=== PATIENT | female | born 1970 | race Caucasian/White ===

== ENCOUNTER → 2018-01-20 07:10 | Outpatient (CLI) | payer BC, SELFPAY ==
--- NOTE | 2018-01-20 07:15 | US_ITS ---
US abdomen limited History:Elevated liver enzymes, right upper quadrant pain with nausea and vomiting Ordering Physician:Librado Abarca MD Patient Age: 47 years Comparison:None Findings: Pancreas:Unremarkable. No obvious mass or abnormal fluid collection. No ductal dilatation Liver:No focal liver lesions demonstrated. Homogeneous echogenicity. No intrahepatic biliary ductal dilatation evident Right Kidney:Unremarkable. Normal size and echogenicity. No hydronephrosis Gallbladder:No gallstones, pericholecystic fluid, or biliary dilatation. Gallbladder wall is slightly thickened at 4 mm. This is nonspecific. Impression: Minimal gallbladder wall thickening otherwise negative right upper quadrant ultrasound.
== END ==
PROVIDERS: Family Provider Internal Medicine Adolescent Medicine; PCP Internal Medicine Adolescent Medicine; Visit Provider Internal Medicine Adolescent Medicine
DX: R10.11 Right upper quadrant pain (principal)
CPT/HCPCS: 76705

== ENCOUNTER → 2018-01-22 12:09 | Outpatient (CLI) | payer BC, SELFPAY ==
--- NOTE | 2018-01-22 12:15 | NM_ITS ---
NM hepatobiliary w pharm HISTORY: Elevated liver enzymes, right upper quadrant pain nausea and vomiting ITS.REASON: ABDOMINAL PAIN ORDERING PHYSICIAN: Librado Abarca MD PATIENT AGE: 47 years COMPARISON: 01/20/2018 DOSE: 8.45 mCi technetium Choletec with CCK FINDINGS: Homogeneous activity is present within the hepatic parenchyma. Activity is present in the gallbladder by 10 minutes. Activity is present in the small bowel by and minutes. The gallbladder ejection fraction is calculated to be 31% The patient reported pain and nausea with CCK infusion. IMPRESSION: 1. No evidence of common or cystic duct obstruction. 2. Slightly low gallbladder ejection fraction with pain and nausea reported with CCK infusion which may be seen with gallbladder dyskinesia. Please correlate with clinical findings.
== END ==
PROVIDERS: Family Provider Internal Medicine Adolescent Medicine; PCP Internal Medicine Adolescent Medicine; Visit Provider Internal Medicine Adolescent Medicine
DX: R10.11 Right upper quadrant pain (principal)
CPT/HCPCS: 78227; A9537; J2805

== ENCOUNTER → 2018-02-01 11:48 | Outpatient (CLI) | payer BC, SELFPAY ==
[2018-02-01 12:07] LABS: Basophils % 0.6 % (0.1-2.0); Eosinophils # 0.1 K/mm3 (0.0-0.4); Eosinophils % 1.4 % (0.1-12.0); Hematocrit 39.9 % (37.0-47.0); Hemoglobin 13.3 g/dL (12.2-16.2); Lymphocytes % 39.6 K/mm3 (10-50); Mean Corpuscular HGB Conc 33.4 g/dL (31.8-35.4); Mean Corpuscular Hemoglobin 28.8 pg (27.0-31.2); Mean Corpuscular Volume 86.4 fl (81-99); Mean Platelet Volume 6.4 fl (7.4-10.4); Monocytes # 0.3 K/mm3 (0.1-1.0); Monocytes % 6.4 % (1.7-9.3); Neutrophils # 2.6 K/mm3 (1.8-7.8); Platelet Count 377 K/mm3 (142-424); Red Blood Count 4.62 M/mm3 (4.20-5.40); Red Cell Distribution Width 13.1 % (11.5-17.5)
[2018-02-01 13:51] LABS: Alanine Aminotransferase 48 U/L (12-78); Albumin Level 4.2 gm/dL (3.4-5.0); Albumin/Globulin Ratio 1.2 (1.1-1.8); Alkaline Phosphatase 156 U/L (46-116); Anion Gap 13.1 mEq/L (5-15); Aspartate Amino Transferase 26 U/L (15-37); Bilirubin,Total 0.5 mg/dL (0.2-1.0); Blood Urea Nitrogen 12 mg/dL (7-18); Carbon Dioxide 32 mmol/L (21.0-32.0); Chloride 102 mmol/L (98-107); Estimated Glomerular Filt Rate 59 ml/min (>60); GFR (African American) 72 ML/MIN (>60); Globulin 3.5 gm/dl (1.3-3.2); Glucose 95 mg/dL (74-106); Potassium 4.1 mmoL/L (3.5-5.1); Sodium 143 mmol/L (136-145); Total Protein,Serum 7.7 gm/dL (6.4-8.2)
== END ==
PROVIDERS: Visit Provider Surgery
DX: K82.9 Disease of gallbladder, unspecified (principal); Z01.818 Encounter for other preprocedural examination
CPT/HCPCS: 36415; 80053; 85025

== ENCOUNTER → 2018-05-21 11:08 | Outpatient (CLI) | payer BC, SELFPAY ==
[2018-05-21 12:21] LABS: Basophils % 0.1 % (0.1-2.0); Eosinophils # 0.1 K/mm3 (0.0-0.4); Eosinophils % 0.9 % (0.1-12.0); Hematocrit 42.9 % (37.0-47.0); Hemoglobin 14.7 g/dL (12.2-16.2); Lymphocytes # 2.2 K/mm3 (0.7-4.5); Lymphocytes % 31.5 % (10-50); Mean Corpuscular HGB Conc 34.2 g/dL (31.8-35.4); Mean Corpuscular Hemoglobin 29.3 pg (27.0-31.2); Mean Corpuscular Volume 85.5 fl (81-99); Mean Platelet Volume 6.1 fl (7.4-10.4); Monocytes # 0.3 K/mm3 (0.1-1.0); Monocytes % 4.1 % (1.7-9.3); Neutrophils # 4.5 K/mm3 (1.8-7.8); Neutrophils % 63.4 % (37.0-80.0); Platelet Count 301 K/mm3 (142-424); Red Blood Count 5.02 M/mm3 (4.20-5.40); Red Cell Distribution Width 14.2 % (11.5-17.5); White Blood Count 7.1 K/mm3 (4.8-10.8)
[2018-05-22 08:28] LABS: HIV Screen 4th Generation wRfx Non Reactive (Non Reactive); Immunoglobulin A, Qn 78 mg/dL (87-352)
[2018-05-22 12:16] LABS: Immunoglobulin G, Qn 866 mg/dL (700-1600); Immunoglobulin M, Qn 41 mg/dL (26-217)
[2018-05-25 06:09] LABS: Immunoglobulin E, Total 64 IU/mL (0-100)
== END ==
PROVIDERS: Visit Provider Internal Medicine Adolescent Medicine
DX: B37.0 Candidal stomatitis (principal)
CPT/HCPCS: 36415; 82784; 82785; 85025; 86703; G0432

== ENCOUNTER → 2018-05-26 08:06 | Outpatient (CLI) | payer BC, SELFPAY ==
[2018-05-26 13:36] LABS: Alanine Aminotransferase 28 U/L (12-78); Albumin Level 3.7 gm/dL (3.4-5.0); Albumin/Globulin Ratio 1.3 (1.1-1.8); Alkaline Phosphatase 52 U/L (46-116); Anion Gap -13.6 mEq/L (5-15); Aspartate Amino Transferase 12 U/L (15-37); Bilirubin,Total 0.2 mg/dL (0.2-1.0); Blood Urea Nitrogen 14 mg/dL (7-18); Calcium 9.2 mg/dL (8.5-10.1); Carbon Dioxide 33 mmol/L (21.0-32.0); Chloride 115 mmol/L (98-107); Creatinine,Serum 0.74 mg/dL (0.55-1.02); Estimated Glomerular Filt Rate 83 ml/min (>60); Free Thyroxine Index 1.9 ug/dL (5.93-13.13); GFR (African American) 101 ML/MIN (>60); Globulin 2.8 gm/dl (1.3-3.2); Glucose 92 mg/dL (74-106); Potassium 3.4 mmoL/L (3.5-5.1); Sodium 131 mmol/L (136-145); T4 (Thyroxine) 5.5 ug/dl (4.7-13.3); Thyroid Stimulating Hormone 1.84 uIU/ml (0.358-3.740); Total Protein,Serum 6.5 gm/dL (6.4-8.2); Triiodothryronine (T3) Uptake 35 % (31-39)
== END ==
PROVIDERS: PCP Internal Medicine Adolescent Medicine; Visit Provider Internal Medicine Adolescent Medicine
DX: E87.6 Hypokalemia (principal)
CPT/HCPCS: 36415; 80053; 83735; 84436; 84443; 84479

== ENCOUNTER → 2019-02-10 13:42 | Outpatient (CLI) | payer BC, SELFPAY ==
--- NOTE | 2019-02-10 13:53 | CI_ITS ---
Cerebrovascular Exam Indications: 780.4 Dizziness and giddiness. IMPRESSIONS 1. The bilateral vertebral arteries are patent with normal antegrade flow. 2. Study suggests 20-49% stenosis involving the right internal carotid artery and the left internal carotid artery. Carotid duplex study. Complete study and Doppler flow study including spectral analysis, color and bose scale imaging. Height: Height: 152.4cm. Height: 60in. Weight: Weight: 63.5kg. Weight: 139.7lb. Body mass index: BMI: 27.3kg/m^2. Body surface area: BSA: 1.66m^2. Location: Vascular laboratory. Patient status: Outpatient. Tables: Arterial flow: + +--------+--------+ Location V sys V ed + +--------+--------+ Right CCA - proximal 141cm/s 37.3cm/s + +--------+--------+ Right CCA - distal 142cm/s 47.1cm/s + +--------+--------+ Right ECA 131cm/s -------- + +--------+--------+ Right ICA - proximal 136cm/s 54.1cm/s + +--------+--------+ Right ICA - mid 138cm/s 59.4cm/s + +--------+--------+ Right ICA - distal 126cm/s 50.6cm/s + +--------+--------+ Right vertebral 72.5cm/s -------- + +--------+--------+ Left CCA - proximal 148cm/s 37.5cm/s + +--------+--------+ Left CCA - distal 134cm/s 44.5cm/s + +--------+--------+ Left ECA 138cm/s -------- + +--------+--------+ Left ICA - proximal 108cm/s 44cm/s + +--------+--------+ Left ICA - mid 117cm/s 44.8cm/s + +--------+--------+ Left ICA - distal 126cm/s 50.3cm/s + +--------+--------+ Left vertebral 54.2cm/s -------- + +--------+--------+ Velocity ratios: + + + + + + Right, V sys Right, V ed Left, V sys Left, V ed + + + + + + Max ICA/dist CCA 0.97 1.26 0.94 1.13 + + + + + + (Report amended ) Electronically signed by: Akbar Mo [id number]
== END ==
PROVIDERS: PCP Internal Medicine Adolescent Medicine; Visit Provider Nurse Practitioner Family
DX: G45.9 Transient cerebral ischemic attack, unspecified (principal)
CPT/HCPCS: 93880

== ENCOUNTER → 2019-02-11 11:05 | Outpatient (CLI) | payer BC, SELFPAY ==
[2019-02-11 12:29] LABS: Basophils % 0.3 % (0.1-2.0); Eosinophils # 0.1 K/mm3 (0.0-0.4); Eosinophils % 1.2 % (0.1-12.0); Hemoglobin 16.1 g/dL (12.2-16.2); Lymphocytes # 2.3 K/mm3 (0.7-4.5); Lymphocytes % 27.8 % (10-50); Mean Corpuscular HGB Conc 37.4 g/dL (31.8-35.4); Mean Corpuscular Volume 85.4 fl (81-99); Mean Platelet Volume 6.7 fl (7.4-10.4); Monocytes # 0.4 K/mm3 (0.1-1.0); Monocytes % 5.1 % (1.7-9.3); Neutrophils # 5.4 K/mm3 (1.8-7.8); Neutrophils % 65.6 % (37.0-80.0); Platelet Count 383 K/mm3 (142-424); Red Blood Count 5.04 M/mm3 (4.20-5.40); Red Cell Distribution Width 13.2 % (11.5-17.5); White Blood Count 8.2 K/mm3 (4.8-10.8)
[2019-02-11 15:59] LABS: Alanine Aminotransferase 38 U/L (12-78); Albumin Level 4.3 gm/dL (3.4-5.0); Albumin/Globulin Ratio 1.3 (1.1-1.8); Alkaline Phosphatase 62 U/L (46-116); Anion Gap 13.5 mEq/L (5-15); Aspartate Amino Transferase 19 U/L (15-37); Bilirubin,Total 0.5 mg/dL (0.2-1.0); Blood Urea Nitrogen 19 mg/dL (7-18); Calcium 9.8 mg/dL (8.5-10.1); Carbon Dioxide 32 mmol/L (21.0-32.0); Chloride 97 mmol/L (98-107); Chol/HDL Ratio 4.2 (1-3.5); Cholesterol 245 mg/dL (140-200); Creatinine,Serum 0.95 mg/dL (0.55-1.02); Estimated Glomerular Filt Rate 63 ml/min (>60); GFR (African American) 76 ML/MIN (>60); Globulin 3.2 gm/dl (1.3-3.2); Glucose 93 mg/dL (74-106); HDL Cholesterol 59 mg/dL (29-89); LDL Cholesterol 151 mg/dL (0-130); Potassium 3.5 mmoL/L (3.5-5.1); Sodium 139 mmol/L (136-145); Thyroid Stimulating Hormone 2.31 uIU/ml (0.358-3.740); Total Protein,Serum 7.5 gm/dL (6.4-8.2); Triglycerides 175 mg/dL (30-200); VLDL Cholesterol 35 mg/dL (0-40)
[2019-02-12 18:48] LABS: Vitamin B12 332 pg/mL (232-1245); Vitamin D 25 Hydroxy 12.5 ng/mL (30.0-100.0)
== END ==
PROVIDERS: Visit Provider Nurse Practitioner Family
DX: Z00.00 Encounter for general adult medical examination without abnormal findings (principal); R53.83 Other fatigue; G45.9 Transient cerebral ischemic attack, unspecified; E55.9 Vitamin D deficiency, unspecified
CPT/HCPCS: 36415; 80053; 80061; 82607; 82652; 84443; 85025

== ENCOUNTER → 2019-02-28 14:25 | Outpatient (CLI) | payer BC, SELFPAY ==
--- NOTE | 2019-02-28 14:30 | MR_ITS ---
PROCEDURE: MR HEAD/BRAIN WO/W CON CLINICAL INDICATION: TIA Dizziness, off balance, fatigue COMPARISON: HDWO CT HEAD W/O CONTRAST from 06/14/2016 TECHNIQUE: Multiplanar multi echo sequences are performed without and with gadolinium enhancement FINDINGS: No midline shift, mass effect, intracranial hemorrhage, or hydrocephalus is evident. The cerebellopontine angles, cerebellum, and brainstem are unremarkable. There is normal bose-white matter differentiation. There are scant T2 white matter hyperintensities which are nonspecific in the left frontal and parietal region in the subcortical area and in the deep white matter of the left frontal lobe. The hippocampal gyri are unremarkable and the temporal horns are symmetric. No enhancing lesions are evident. The pituitary, optic chiasm, corpus callosum, and craniocervical junction are unremarkable. No mastoid effusion or sinus air-fluid level. IMPRESSION: No acute intracranial findings. There are a few scattered T2 white matter hyperintensities which are nonspecific and could be related to small ischemic gliotic foci or sequela from migraine headache. Demyelinating process felt to be less likely based on imaging characteristics but not entirely excluded Dictated by: Akbar Mo MD 03/01/2019 09:20 Signed by: <Electronically signed by Akbar Mo MD in [place]> 03/01/2019 09:20
== END ==
PROVIDERS: PCP Internal Medicine Adolescent Medicine; Visit Provider Nurse Practitioner Family
DX: G45.9 Transient cerebral ischemic attack, unspecified (principal)
CPT/HCPCS: 70553; A9576

== ENCOUNTER → 2020-01-09 15:08 | Outpatient (CLI) | payer BC, SELFPAY ==
--- NOTE | 2020-01-09 15:26 | XR_ITS ---
PROCEDURE: XR FOOT WT BEARING RT 3V CLINICAL INDICATION: bunion Pain COMPARISON: XR FOOT WT BEARING LT 3V from 01/09/2020 FINDINGS: No acute fracture or dislocation. There is mild hallux valgus with osteoarthritic change of the 1st MTP joint and bunion formation. There is some soft tissue ossification medial to the head of the 4th metatarsal with some cortical erosion of the distal aspect of the 4th metatarsal with cystic changes raising the suspicion gout. There is short 4th metatarsal/brachymetatarsia. IMPRESSION: 1. 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 Hallux valgus 3. Soft tissue swelling with some questionable soft tissue ossification and cystic/lytic changes of the medial aspect and distal aspect of the 1st metatarsal raising the suspicion of gout. Please correlate with clinical parameters. There is a cystic/lytic lesion of the distal and medial aspect of the 4th metatarsal measuring approximately 15 mm Dictated by: Akbar Mo MD 01/09/2020 15:54 Electronically signed by Akbar Mo MD in [place] 01/09/2020 15:54
--- NOTE | 2020-01-09 15:26 | XR_ITS ---
PROCEDURE: XR FOOT WT BEARING LT 3V CLINICAL INDICATION: bunion Congenital deformity COMPARISON: No exams were available for comparison FINDINGS: Minimal hallux valgus. Soft tissue swelling is present at the medial aspect of the 1st MTP joint with lucency of the distal aspect of the 1st metatarsal medially with cystic changes. There is short 4th metatarsal/brachy meta tarsi Other findings:None. IMPRESSION: Short 4th metatarsal Cystic changes of the distal aspect of the 1st metatarsal medially with overlying soft tissue swelling. Gout is a consideration. Dictated by: Akbar Mo MD 01/09/2020 18:37 Electronically signed by Akbar Mo MD in [place] 01/09/2020 18:37
== END ==
PROVIDERS: PCP Internal Medicine Adolescent Medicine; Visit Provider Podiatrist
DX: M20.10 Hallux valgus (acquired), unspecified foot (principal)
CPT/HCPCS: 73630

== ENCOUNTER → 2020-01-17 14:48 | Outpatient (CLI) | payer BC, SELFPAY ==
[2020-01-17 15:15] LABS: Basophils % 0.4 % (0.1-2.0); Eosinophils # 0.2 K/mm3 (0.0-0.4); Eosinophils % 2.9 % (0.1-12.0); Hematocrit 39.9 % (37.0-47.0); Hemoglobin 14.6 g/dL (12.2-16.2); Lymphocytes # 2.8 K/mm3 (0.7-4.5); Lymphocytes % 33.8 % (10-50); Mean Corpuscular HGB Conc 36.5 g/dL (31.8-35.4); Mean Corpuscular Hemoglobin 31.1 pg (27.0-31.2); Mean Corpuscular Volume 85.1 fl (81-99); Monocytes # 0.4 K/mm3 (0.1-1.0); Monocytes % 5.2 % (1.7-9.3); Neutrophils # 4.8 K/mm3 (1.8-7.8); Neutrophils % 57.7 % (37.0-80.0); Platelet Count 419 K/mm3 (142-424); Red Cell Distribution Width 13.1 % (11.5-17.5); White Blood Count 8.4 K/mm3 (4.8-10.8)
[2020-01-17 15:40] LABS: Erythrocyte Sedimentation Rate 15 mm/hr (0-20)
[2020-01-17 16:02] LABS: Chloride 95 mmol/L (98-107); Sodium 138 mmol/L (136-145)
[2020-01-17 16:05] LABS: Alanine Aminotransferase 25 U/L (12-78); Albumin Level 4.6 g/dl (3.5-5.0); Albumin/Globulin Ratio 1.9 (1.1-1.8); Alkaline Phosphatase 75 U/L (38-126); Aspartate Amino Transferase 25 U/L (14-36); Bilirubin,Total 0.4 mg/dl (0.2-1.3); Blood Urea Nitrogen 28 mg/dl (7-17); Carbon Dioxide 31 mmol/L (22.0-30.0); Estimated Glomerular Filt Rate 66 ml/min (>60); GFR (African American) 80 ML/MIN (>60); Globulin 2.4 g/dL (1.3-3.2); Uric Acid 7.1 mg/dl (2.5-6.2)
[2020-01-17 16:06] LABS: Calcium 9.9 mg/dl (8.4-10.2); Glucose 81 mg/dl (74-100)
[2020-01-17 16:11] LABS: C-Reactive Protein 4.4 mg/L (0-4)
[2020-01-17 17:10] LABS: Hemoglobin A1C 5.7 % (4.0-6.0)
[2020-01-19 11:16] LABS: Vitamin B12 474 pg/mL (232-1245)
[2020-01-19 12:02] LABS: Folate 6.6 ng/mL (>3.0)
[2020-01-19 13:07] LABS: RA Latex Turbid. 11.9 IU/mL (0.0-13.9)
[2020-01-19 15:17] LABS: Anti-Centromere B Antibodies <0.2 AI (0.0-0.9); Anti-Jo-1 <0.2 AI (0.0-0.9); Anti-Smith Antibody <0.2 AI (0.0-0.9); Antichromatin Antibodies <0.2 AI (0.0-0.9); Antiscleroderma-70 Antibodies <0.2 AI (0.0-0.9); RNP Antibodies 0.3 AI (0.0-0.9); Sjogren's Anti-SS-A <0.2 AI (0.0-0.9); Sjogren's Anti-SS-B <0.2 AI (0.0-0.9)
[2020-01-19 16:16] LABS: Anti-DNA (DS) Ab Qn <1 IU/mL (0-9)
[2020-01-19 18:14] LABS: Antinuclear Antibodies, IFA Negative (.)
[2020-01-24 20:30] LABS: 1,25 Dihydroxy Vitamin D 15 pg/mL (.); 1,25-Dihydroxy, Vitamin D-2 11 pg/mL (.); 1,25-Dihydroxy, Vitamin D-3 <10 pg/mL (.)
== END ==
PROVIDERS: Visit Provider Podiatrist
DX: M25.50 Pain in unspecified joint (principal); M1A.0720 Idiopathic chronic gout, left ankle and foot, without tophus (tophi); M19.072 Primary osteoarthritis, left ankle and foot; M19.071 Primary osteoarthritis, right ankle and foot
CPT/HCPCS: 36415; 80053; 82607; 82652; 82746; 83036; 84550; 85025; 85651; 86038; 86140; 86225; 86235; 86431

== ENCOUNTER → 2020-05-24 12:23 | Outpatient (CLI) | payer SELFPAY ==
--- NOTE | 2020-05-24 12:30 | XR_ITS ---
PROCEDURE: XR FOOT WT BEARING RT 3V CLINICAL INDICATION: Gout of Right Great Toe. COMPARISON: CR XR FOOT WT BEARING RT 3V from 01/09/2020 CR XR FOOT WT BEARING LT 3V from 01/09/2020 FINDINGS: There is prominent soft tissue swelling at the medial and distal aspect of the 1st metatarsal with some faint soft tissue calcification consistent with gouty tophus. A lytic lesion involves the distal aspect of the 1st metatarsal measuring 19 by 11 mm and may be related to erosive change from gout.. 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
[2020-05-24 14:22] LABS: Basophils % 0.3 % (0.1-2.0); Eosinophils # 0.2 K/mm3 (0.0-0.4); Hematocrit 41.1 % (37.0-47.0); Hemoglobin 14.5 g/dL (12.2-16.2); Lymphocytes # 2.8 K/mm3 (0.7-4.5); Lymphocytes % 33.7 % (10-50); Mean Corpuscular HGB Conc 35.1 g/dL (31.8-35.4); Mean Corpuscular Hemoglobin 29.8 pg (27.0-31.2); Mean Corpuscular Volume 84.7 fl (81-99); Mean Platelet Volume 6.8 fl (7.4-10.4); Monocytes # 0.5 K/mm3 (0.1-1.0); Monocytes % 5.7 % (1.7-9.3); Neutrophils # 4.8 K/mm3 (1.8-7.8); Neutrophils % 58.3 % (37.0-80.0); Platelet Count 349 K/mm3 (142-424); Red Blood Count 4.85 M/mm3 (4.20-5.40); Red Cell Distribution Width 13.4 % (11.5-17.5); White Blood Count 8.3 K/mm3 (4.8-10.8)
[2020-05-24 15:01] LABS: Erythrocyte Sedimentation Rate 33 mm/hr (0-30)
[2020-05-24 15:42] LABS: Chloride 93 mmol/L (98-107); Potassium 4.1 mmoL/L (3.5-5.1); Sodium 139 mmol/L (136-145)
[2020-05-24 15:44] LABS: Alanine Aminotransferase 39 U/L (12-78); Aspartate Amino Transferase 29 U/L (14-36); Blood Urea Nitrogen 19 mg/dl (7-17); Estimated Glomerular Filt Rate 66 ml/min (>60); GFR (African American) 80 ML/MIN (>60)
[2020-05-24 15:45] LABS: Albumin Level 4.6 g/dl (3.5-5.0); Albumin/Globulin Ratio 1.8 (1.1-1.8); Alkaline Phosphatase 58 U/L (38-126); Anion Gap 16.1 mEq/L (5-15); Bilirubin,Total 0.3 mg/dl (0.2-1.3); Carbon Dioxide 34 mmol/L (22.0-30.0); Globulin 2.6 g/dL (1.3-3.2); Glucose 106 mg/dl (74-100); Total Protein,Serum 7.2 g/dl (6.3-8.2)
[2020-05-24 15:52] LABS: C-Reactive Protein 17.8 mg/L (0-4)
[2020-05-24 16:35] LABS: Uric Acid 8.7 mg/dl (2.5-6.2)
== END ==
PROVIDERS: PCP Internal Medicine Adolescent Medicine; Visit Provider Podiatrist
DX: M10.9 Gout, unspecified (principal)
CPT/HCPCS: 36415; 73630; 80053; 84550; 85025; 85651; 86140

== ENCOUNTER → 2020-09-07 16:49 | Outpatient (CLI) | payer BC, SELFPAY ==
--- NOTE | 2020-09-07 16:57 | XR_ITS ---
PROCEDURE: XR CHEST 2V CLINICAL HISTORY: SOB COMPARISON: No exams were available for comparison FINDINGS: The cardiomediastinal silhouette and pulmonary vascularity are within normal limits. The lungs are clear without infiltrates, suspicious nodules, or pleural effusions. No acute bony abnormalities. IMPRESSION: No acute findings. Dictated by: Akbar Mo MD 09/07/2020 17:55 Akbar Mo MD in [place] 09/07/2020 17:55
== END ==
PROVIDERS: PCP Internal Medicine Adolescent Medicine; Visit Provider Nurse Practitioner Family
DX: R06.02 Shortness of breath (principal)
CPT/HCPCS: 71046

== ENCOUNTER → 2021-03-25 16:17 | Outpatient (CLI) | payer BC, SELFPAY | PROVIDERS: PCP Internal Medicine Adolescent Medicine; Visit Provider Nurse Practitioner | DX: U07.1 COVID-19 (principal) | CPT/HCPCS: C9803; U0003; U0005 ==

== ENCOUNTER 2023-11-23 16:25 | Outpatient (CLI) | payer BC, SELFPAY ==
--- NOTE | 2023-11-23 16:51 | XR_ITS ---
PROCEDURE INFORMATION: Exam: XR Right Foot Complete; Alignment Exam date and time: 11/23/2023 4:52 PM Age: 53 years old Clinical indication: Other: Gout TECHNIQUE: Imaging protocol: Radiologic exam of the right foot. Views: 3 or more views. COMPARISON: CR XR FOOT WT BEARING RT 3V 05/24/2020 12:34 PM FINDINGS: Bones/joints: There are erosive changes of the 1st metatarsal head which have significantly progressed from the examination dated May 24, 2020 an appearance suggestive of gouty arthropathy. There is a hallux valgus deformity. Soft tissues: Normal. IMPRESSION: There are erosive changes of the 1st metatarsal head which have significantly progressed from the examination dated May 24, 2020 an appearance suggestive of gouty arthropathy.
[2023-11-23 18:19] LABS: Alanine Aminotransferase 30 U/L (12-78); Albumin Level 4.7 g/dl (3.5-5.0); Albumin/Globulin Ratio 1.8 (1.1-1.8); Alkaline Phosphatase 79 U/L (38-126); Aspartate Amino Transferase 34 U/L (14-36); Bilirubin,Total 0.4 mg/dl (0.2-1.3); Blood Urea Nitrogen 17 mg/dl (7-17); Calcium 10.3 mg/dl (8.4-10.2); Carbon Dioxide 29 mmol/L (22.0-30.0); Chloride 101 mmol/L (98-107); Estimated Glomerular Filt Rate 65 ml/min (>60); GFR (African American) 79 ML/MIN (>60); Globulin 2.6 g/dL (1.3-3.2); Glucose 88 mg/dl (74-100); Sodium 142 mmol/L (136-145); Total Protein,Serum 7.3 g/dl (6.3-8.2); Uric Acid 6.9 mg/dl (2.5-6.2)
[2023-11-23 18:25] LABS: C-Reactive Protein 10.3 mg/L (0-4)
[2023-11-23 19:29] LABS: Erythrocyte Sedimentation Rate 14 mm/hr (0-30)
[2023-11-23 19:32] LABS: Basophils # 0.1 K/mm3 (0-0.2); Basophils % 0.5 % (0.1-2.0); Eosinophils # 0.2 K/mm3 (0.0-0.4); Eosinophils % 2.1 % (0.1-12.0); Hematocrit 39.7 % (37.0-47.0); Hemoglobin 13.5 g/dL (12.2-16.2); Lymphocytes % 30.3 % (10-50); Mean Corpuscular HGB Conc 34.1 g/dL (31.8-35.4); Mean Corpuscular Volume 85.1 fl (81-99); Mean Platelet Volume 8.2 fl (7.4-10.4); Monocytes # 0.4 K/mm3 (0.1-1.0); Monocytes % 4.3 % (1.7-9.3); Neutrophils # 6.2 K/mm3 (1.8-7.8); Neutrophils % 62.8 % (37.0-80.0); Platelet Count 409 K/mm3 (142-424); Red Blood Count 4.66 M/mm3 (4.20-5.40); Red Cell Distribution Width 13.3 % (11.5-17.5); White Blood Count 9.9 K/mm3 (4.8-10.8)
== END 2023-11-23 23:59 | disposition home or self-care (01) ==
LOC: LAB 16:26
PROVIDERS: PCP Internal Medicine Adolescent Medicine; Visit Provider Nurse Practitioner
DX: M1A.0710 Idiopathic chronic gout, right ankle and foot, without tophus (tophi) (principal)
CPT/HCPCS: 36415; 73630; 80053; 84550; 85025; 85651; 86140

== ENCOUNTER 2024-01-05 13:57 | Outpatient (CLI) | payer BC, SELFPAY ==
--- NOTE | 2024-01-05 13:58 | ECG_ITS ---
APPROVED REPORT Exam: Resting ECG HR:90 bpm ECG Measurements Heart Rate 90 AXES VA 161 P 59 QRSd 83 QRS 36 QT 338 T 81 QTc 386 Conclusion SINUS RHYTHM NONSPECIFIC T-WAVE ABNORMALITY BORDERLINE ECG Electronically signed by : MARRY JARAMILLO, 01/06/2024 21:42:16
--- NOTE | 2024-01-05 14:20 | XR_ITS ---
FINAL REPORT CLINICAL HISTORY: pre-op testing...soa FINDINGS: No acute pulmonary density is evident. There is no evidence of effusion or other pleural disease. The mediastinum has a normal appearance. The cardiac silhouette is unremarkable. IMPRESSION: Unremarkable chest exam. Reviewed, Interpreted and Dictated by Cristina Egan MD Transcribed by Marianne Cole Authenticated and [facility]
[2024-01-05 14:44] LABS: Chloride 98 mmol/L (98-107)
[2024-01-05 14:45] LABS: Potassium 4.1 mmoL/L (3.5-5.1); Sodium 140 mmol/L (136-145)
[2024-01-05 14:47] LABS: Alanine Aminotransferase 38 U/L (12-78); Aspartate Amino Transferase 32 U/L (14-36); Blood Urea Nitrogen 22 mg/dl (7-17); Estimated Glomerular Filt Rate 65 ml/min (>60); GFR (African American) 79 ML/MIN (>60)
[2024-01-05 14:48] LABS: Albumin/Globulin Ratio 1.9 (1.1-1.8); Alkaline Phosphatase 71 U/L (38-126); Anion Gap 14.1 mEq/L (5-15); Bilirubin,Total 0.7 mg/dl (0.2-1.3); Calcium 10.5 mg/dl (8.4-10.2); Carbon Dioxide 32 mmol/L (22.0-30.0); Globulin 2.6 g/dL (1.3-3.2); Glucose 137 mg/dl (74-100); Total Protein,Serum 7.6 g/dl (6.3-8.2)
[2024-01-05 14:54] LABS: C-Reactive Protein 3.4 mg/L (0-4)
[2024-01-05 15:09] LABS: Basophils % 0.6 % (0.1-2.0); Eosinophils # 0.1 K/mm3 (0.0-0.4); Eosinophils % 1.3 % (0.1-12.0); Hematocrit 41.5 % (37.0-47.0); Hemoglobin 13.9 g/dL (12.2-16.2); Lymphocytes % 26.2 % (10-50); Mean Corpuscular HGB Conc 33.4 g/dL (31.8-35.4); Mean Corpuscular Hemoglobin 28.9 pg (27.0-31.2); Mean Corpuscular Volume 86.6 fl (81-99); Mean Platelet Volume 7.6 fl (7.4-10.4); Monocytes # 0.4 K/mm3 (0.1-1.0); Monocytes % 5.4 % (1.7-9.3); Neutrophils % 66.6 % (37.0-80.0); Platelet Count 355 K/mm3 (142-424); Red Cell Distribution Width 13.8 % (11.5-17.5); White Blood Count 7.5 K/mm3 (4.8-10.8)
[2024-01-05 15:34] LABS: Uric Acid 6.8 mg/dl (2.5-6.2)
[2024-01-15 16:30] LABS: 1,25 Dihydroxy Vitamin D 35 pg/mL (.); 1,25-Dihydroxy, Vitamin D-2 22 pg/mL (.); 1,25-Dihydroxy, Vitamin D-3 13 pg/mL (.)
== END 2024-01-05 23:59 | disposition home or self-care (01) ==
LOC: LAB 13:58
PROVIDERS: PCP Internal Medicine Adolescent Medicine; Visit Provider Podiatrist
DX: Z01.818 Encounter for other preprocedural examination (principal); M1A.0710 Idiopathic chronic gout, right ankle and foot, without tophus (tophi); Z68.27 Body mass index [BMI] 27.0-27.9, adult
CPT/HCPCS: 36415; 71046; 80053; 82652; 84550; 85025; 86140; 93005

== ENCOUNTER 2024-01-07 12:04 | Day surgery (SDC) | payer BC, SELFPAY ==
[2024-01-06 13:24] VITALS: BMI 27.3
[2024-01-07] VITALS (11 sets, daily range): BP systolic 101–147; BP diastolic 57–91; PULSE 80–108; RESP 14–18; TEMP 36.6–43; O2SAT 93–97
--- NOTE | 2024-01-07 13:45 | P.PNANES_ITS ---
[facility] Disclaimer: The information contained in this section may have been updated after the patient was seen, as this information can be updated by other users. 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, bilateral Gout Surgical History Hx of colonoscopy Hx of section Hx of cholecystectomy H/O: hysterectomy total Family History Father Diabetes Type 1 Heart attack Gout Heart disease Had pacemaker, CHF Mother Gout Thyroid disorder Social History Smoking Status: Never smoker alcohol intake: never counseling provided: none substance use type: denies use current occupational status: employed Travel in the last 8 weeks: None [facility] Anesthesia Checklist Patient Identification Patient Identification: Arm Band, Family and Verbal (Name & ) Structural Data Admitted From: Home Planned Operative Procedure/s: RT. foot cheilectomy; I D; nerve decompression Consent for Planned Operative Procedure(s) Verified: Yes Verified Documents: Surgical Consent and History and Physical NPO Status Verified Time NPO: 23:50 Chart Verification Results Verified: CBC, BMP, ECG and Chest Xray Additional verifications Patient : No Anesthesia Reactions: No Hx Blood Transfusions: No Blood Transfusion Reaction: No Cardiovascular Assessment Heart Sounds: S1 & S2 Pulse Rhythm: Irregular Peripheral Edema: No Airway Assessment Mallampati Score:: Class II C-Spine Mobility Assessed: Yes (FROM) TMJ Mobility Assessed: Yes Dentition: Good Dentition (Nothing loose per pt.) Neurological Assessment Level of Consciousness: Awake, Alert, Appropriate and Follows Commands Hx Seizures: No Numbness or tingling in extremities: No Anesthesia Plan Anesthesia Risk discussed: Yes Anesthesia Plan: Verified ASA Class: III Anesthesia Type: General w/block
[2024-01-07] MEDS: BUPIVACAINE 0.5% 30ML VIAL 150 MG (15:48)
[2024-01-07] MEDS: CEFAZOLIN 2GM VIAL 2 GM (15:49)
[2024-01-07] MEDS: CEFAZOLIN SODIUM 2 GM in 0.9 % SODIUM CHLORIDE 100 ML IV (15:49)
--- NOTE | 2024-01-07 16:15 | XR_ITS ---
PROCEDURE INFORMATION: Exam: XR Right Foot Exam date and time: 01/07/2024 4:53 PM Age: 53 years old Clinical indication: Screening exam; Post op exam; Prior surgery; Surgery date: Post-operative (0-2 days); Surgery type: Post cheilectomy, gout TECHNIQUE: Imaging protocol: Radiologic exam of the right foot. Views: 3 or more views. 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 Interval partial resection of the 1st metatarsal head. No acute fracture or dislocation. Soft tissues: Normal. IMPRESSION: Postsurgical changes without acute abnormality identified.
--- NOTE | 2024-01-07 16:44 | EXP.ANES.I ---
[facility] Anesthesia Record Part I Anesthesia Record I Intake, IV Amount: 1,500 Hydration: Adequate Estimated blood loss (mL): 0 Urine output (mL): 0 Blood Pressure: 144/91 SaO2: 93 Pulse Rate: 108 Airway Patency: Patent Respiratory Rate: 16 Temperature: 97.8 F Patient is:: Awake and Stable Stable to PACU at:: 16:40
--- NOTE | 2024-01-07 16:53 | EXP.OP.NOTE ---
Date of procedure: 01/07/24 Pre-op Diagnosis:: Right 1st MTPJ bursitis Right 1st MTPJ OA Gout Gouty tophi Post-op Diagnosis:: Same Procedure performed:: Right 1st MTPJ cheilectomy Excision bursa I&D gouty tophi Excision, curettage gout metatarsal bone cyst 1st MTPJ capsulotomy and capsulorrhaphy Application of graft Surgeon:: Elly Young DPM [employer]LECT[employer]IC [employer]OR REPAIRMAN:: Renato Emmanuel Anesthesia: GETA and local (30cc 0.5% marcaine plain) Estimated blood loss (mL): 20 Clinical Note:: Patient is a 53-year-old female with gouty arthritis to the right first MPJ. Patient has a significant preoperative bursa with gouty tophi. Discussed conservative versus surgical treatment options. Patient has tried and failed conservative care including: Modification of shoe gear, modification of activity, taping, strapping, RICE protocol, NSAIDs, colchicine, indomethacin, allopurinol, various antibiotics for cellulitis. Discussed resection of the gouty tophi versus MPJ fusion. Patient did not want MPJ fusion at this time. Explained that gout could return to the joint, as the cartilage will still be present and already has some damage. Patient understands she may still have arthritic type pain and stiffness. Discussed excising the gouty tophi with resecting some of the capsule and performing cheilectomy. The patient has been instructed on the planned procedure, all risk versus benefits of the procedure to include bleeding, infection, nerve and blood vessel damage, need for further surgery, delay in healing of soft tissue or bone, failure of bones to heal, non-union, mal-union, prolonged pain and recovery, prolonged swelling, CRPS/RSD, DVT/PE and anesthetic complications including . No guarantees were given. All questions fully answered. The patient verbalized understanding and agreed to proceed with surgery. Written consent was obtained. Operative findings:: Right first MPJ with large dorsal medial bursa with gouty tophi. There is significant arthritic changes to the proximal phalanx with spurring of the base noted. The first metatarsal head had gouty changes and arthritis to at least 50% of the metatarsal head. There was a arthritic gouty cyst noted to the medial first met head which was excised. There was liquidy creamy yellow gout material within the joint capsule extensor tendon encompassing the joint and the bones including the plantar aspect of the joint over the sesamoids. There were gouty crystals and fibrotic thickened capsule dorsal plantar to the MPJ. No purulence, malodor or signs of infection noted. Operative note:: On this date and time, the patient was deemed an appropriate surgical candidate. With informed consent signed, the patient was taken to the operating theater and positioned supine. General anesthesia was induced. Tourniquet was applied to the right thigh @225mmHg. IV Ancef given. The right lower extremity was prepped and draped in normal sterile fashion. 15 cc 0.5% Marcaine plain infiltrated around the ankle. Right foot I&D: Attention was directed to the right dorsal medial foot where a large bursa was noted. Sharp incision with 15 blade made through skin. Immediately creamy thick gouty material was expressed. Tophi was debrided/resected with 15 blade, forceps and curette. Wound flushed with saline. Excision of bursa: The bursa noted on the dorsal medial side of the foot was excised full-thickness with 15 blade and forceps. Right 1st MTPJ cheilectomy: Attention was directed to the proximal phalanx of the first metatarsal which both had arthritic spurring noted. Rongeur was used to excise the bony spurring. Rasp used to smooth down sharp prominences. Synovitis was debrided with 15 blade and forceps. Arthritic changes noted to both sides of the joint. See operative findings. Excision, curettage gout metatarsal bone cyst: A 0.5 cm round bone cyst was noted to the medial aspect of the first metatarsal head. Curette was used to excise the bone cyst. There were gout crystals within the cyst. It was flushed with saline. 1st MTPJ capsulotomy and capsulorrhaphy: Due to the extensive gout changes, the capsule was irregular. The inner and outer joint capsule all had gouty changes, abnormal fibrotic thickening and creamy gout crystals. 15 blade, forceps and curette was utilized to excise and debride as much gouty material as possible. Wound was flushed with saline. Next 15 blade was used to debride and resect part of the capsule. The dorsal, medial and lateral aspect of the joint capsule were all incised and evaluated. Once again material was excised, capsulorrhaphy was performed in order to tighten up the joint capsule and reduce the hallux more rectus. Capsule was repaired with with sutured in over an open fashion. All wounds were flushed. Application of amniotic graft: Due to the extensive gout changes, post debridement the dorsal and medial tissue was very thin. A piece of amniotic tissue was packed into bone cyst site and the rest was laid over the repair capsule site in order to prevent adhesions and scarring of the joint capsule to the thin skin. Deep and subcutaneous tissue repaired with Vicryl. Skin repaired with nylon. 15 cc of 0.5% Marcaine plain given in a Head block. Skin cleansed. Tourniquet deflated and immediate hyperemic response was noted to the digits. Patient was awoken from anesthesia with vital signs stable and neurovascular status intact. She appeared to tolerate procedure and anesthesia well without complication. Materials: [employer] graft x1 (4x3cm) Plan: DC home today when ready. WBaT to right foot in fracture boot. Maintain dressing clean dry and intact. Ice top of right foot. Take Rx as directed. Post op right foot x-ray. Follow up in one week for skin check and dressing change. Condition: stable Disposition: same day Specimens:: Right 1st MTPJ gouty tophi Right 1st MTPJ gout crystals Right 1st MPJ bone Right foot WCx Complications:: None
--- NOTE | 2024-01-08 14:41 | P.PNANES_ITS ---
[facility] Anesthesia Record Part II Anesthesia Record Part II Discharge Time: 17:10 Destination: Surgical Day Care (OP Surgery) PACU nurse assessment reviewed?: Yes Patient Condition:: Good Anesthesia Complications:: None Swallowing reflex intact?: Yes Airway Patency: Patent Cyanosis?: No Blood Pressure: 101/57 SaO2: 94 Respiratory Rate: 16 Pulse Rate: 86 Temperature: 98.1 F Mental Status: Alert & Oriented Pain level:: 0 Nausea and/or vomitting:: None Intake, IV Amount: 0 Hydration: Adequate
[2024-01-08 14:42] VITALS: BP 101/57; PULSE 86; RESP 16; TEMP 36.7; O2SAT 94
== END 2024-01-07 17:50 | disposition home or self-care (01) ==
PROVIDERS: PCP Internal Medicine Adolescent Medicine; Visit Provider Podiatrist
PROC: (CPT 28289; principal; 2024-01-07 13:45)
DX: M1A.0710 Idiopathic chronic gout, right ankle and foot, without tophus (tophi) (principal); M19.071 Primary osteoarthritis, right ankle and foot; M21.41 Flat foot [pes planus] (acquired), right foot; M79.674 Pain in right toe(s); M20.11 Hallux valgus (acquired), right foot; Z79.899 Other long term (current) drug therapy
CPT/HCPCS: 28289; 28002; 73630; 87070; 87075; 87205; 96374; C9144; J0690; J1885; J2250; J2405; J3010

== ENCOUNTER 2024-03-01 17:30 | Outpatient (CLI) | payer BC, SELFPAY ==
[2024-03-01 18:01] LABS: Basophils # 0.1 K/mm3 (0-0.2); Basophils % 0.5 % (0.1-2.0); Eosinophils # 0.2 K/mm3 (0.0-0.4); Eosinophils % 2.2 % (0.1-12.0); Hemoglobin 13.6 g/dL (12.2-16.2); Lymphocytes # 2.9 K/mm3 (0.7-4.5); Lymphocytes % 31.7 % (10-50); Mean Corpuscular HGB Conc 31.6 g/dL (31.8-35.4); Mean Corpuscular Hemoglobin 28.3 pg (27.0-31.2); Mean Corpuscular Volume 89.6 fl (81-99); Mean Platelet Volume 7.5 fl (7.4-10.4); Monocytes # 0.5 K/mm3 (0.1-1.0); Monocytes % 5.8 % (1.7-9.3); Neutrophils # 5.5 K/mm3 (1.8-7.8); Neutrophils % 59.7 % (37.0-80.0); Platelet Count 373 K/mm3 (142-424); Red Cell Distribution Width 13.6 % (11.5-17.5); White Blood Count 9.2 K/mm3 (4.8-10.8)
[2024-03-01 18:05] LABS: Albumin Level 4.9 g/dl (3.5-5.0); Chloride 105 mmol/L (98-107); Potassium 3.9 mmoL/L (3.5-5.1); Sodium 140 mmol/L (136-145)
[2024-03-01 18:08] LABS: Alanine Aminotransferase 26 U/L (12-78); Alkaline Phosphatase 80 U/L (38-126); Anion Gap 11.9 mEq/L (5-15); Aspartate Amino Transferase 28 U/L (14-36); Bilirubin,Total 0.8 mg/dl (0.2-1.3); Blood Urea Nitrogen 14 mg/dl (7-17); Carbon Dioxide 27 mmol/L (22.0-30.0); Estimated Glomerular Filt Rate 65 ml/min (>60); GFR (African American) 79 ML/MIN (>60); Globulin 2.5 g/dL (1.3-3.2); Total Protein,Serum 7.4 g/dl (6.3-8.2)
[2024-03-01 18:09] LABS: Calcium 10.1 mg/dl (8.4-10.2); Glucose 101 mg/dl (74-100)
[2024-03-01 18:21] LABS: Uric Acid 6.9 mg/dl (2.5-6.2)
[2024-03-01 18:22] LABS: Erythrocyte Sedimentation Rate 6 mm/hr (0-30)
[2024-03-01 18:55] LABS: C-Reactive Protein 5.3 mg/L (0-4)
== END 2024-03-01 23:59 | disposition home or self-care (01) ==
LOC: LAB 18:15
PROVIDERS: PCP Internal Medicine Adolescent Medicine; Visit Provider Podiatrist
DX: Z98.890 Other specified postprocedural states (principal); M10.9 Gout, unspecified; R23.4 Changes in skin texture; M77.41 Metatarsalgia, right foot
CPT/HCPCS: 36415; 80053; 84550; 85025; 85651; 86140

== ENCOUNTER 2024-03-03 15:05 | Outpatient (CLI) | payer BC, SELFPAY ==
--- NOTE | 2024-03-03 15:06 | CA_ITS ---
FINAL REPORT TECHNIQUE: Multiple transverse and longitudinal images were performed of the right femoral-popliteal deep venous system with augmentation and compression maneuvers. CLINICAL HISTORY: Evaluate for DVT FINDINGS: Right lower extremity duplex ultrasound demonstrates normal flow in the deep venous system. There is no abnormal echogenicity to suggest thrombus. There is normal compression and augmentation. IMPRESSION: No evidence of right DVT. Reviewed, Interpreted and Dictated by Sammy Burch MD Transcribed by Marianne Cole Authenticated and [facility]
== END 2024-03-03 23:59 | disposition home or self-care (01) ==
LOC: RT 15:06
PROVIDERS: PCP Internal Medicine Adolescent Medicine; Visit Provider Podiatrist
DX: R60.9 Edema, unspecified (principal); Z98.890 Other specified postprocedural states
CPT/HCPCS: 93971

== ENCOUNTER 2024-03-11 14:05 | Outpatient (CLI) | payer BC, SELFPAY ==
--- NOTE | 2024-03-11 | CA_ITS ---
FINAL REPORT TECHNIQUE: Ultrasound images of the deep venous system were obtained from the left groin to the calf veins. CLINICAL HISTORY: left leg pain, right foot in boot post fracture repair COMPARISON: None FINDINGS: The deep venous system is normally compressible. Normal flow is identified. IMPRESSION: No evidence of left lower extremity DVT. Reviewed, Interpreted and Dictated by Sammy Burch MD Transcribed by Cara Cameron Authenticated and [facility]
[2024-03-11 14:50] LABS: Basophils # 0.1 K/mm3 (0-0.2); Basophils % 0.5 % (0.1-2.0); Eosinophils # 0.2 K/mm3 (0.0-0.4); Eosinophils % 1.9 % (0.1-12.0); Hematocrit 39.8 % (37.0-47.0); Hemoglobin 13.3 g/dL (12.2-16.2); Lymphocytes # 2.7 K/mm3 (0.7-4.5); Lymphocytes % 26.8 % (10-50); Mean Corpuscular HGB Conc 33.4 g/dL (31.8-35.4); Mean Corpuscular Hemoglobin 29.1 pg (27.0-31.2); Mean Corpuscular Volume 87.1 fl (81-99); Mean Platelet Volume 7.3 fl (7.4-10.4); Monocytes # 0.4 K/mm3 (0.1-1.0); Monocytes % 4.3 % (1.7-9.3); Neutrophils # 6.8 K/mm3 (1.8-7.8); Neutrophils % 66.6 % (37.0-80.0); Platelet Count 380 K/mm3 (142-424); Red Blood Count 4.57 M/mm3 (4.20-5.40); Red Cell Distribution Width 13.3 % (11.5-17.5); White Blood Count 10.1 K/mm3 (4.8-10.8)
[2024-03-11 15:28] LABS: Erythrocyte Sedimentation Rate 13 mm/hr (0-30)
[2024-03-11 15:32] LABS: Alanine Aminotransferase 23 U/L (12-78); Albumin Level 4.3 g/dl (3.5-5.0); Albumin/Globulin Ratio 1.8 (1.1-1.8); Alkaline Phosphatase 78 U/L (38-126); Anion Gap 9.8 mEq/L (5-15); Aspartate Amino Transferase 25 U/L (14-36); Bilirubin,Total 0.5 mg/dl (0.2-1.3); Blood Urea Nitrogen 18 mg/dl (7-17); Calcium 9.7 mg/dl (8.4-10.2); Carbon Dioxide 28 mmol/L (22.0-30.0); Chloride 105 mmol/L (98-107); Estimated Glomerular Filt Rate 74 ml/min (>60); GFR (African American) 90 ML/MIN (>60); Globulin 2.4 g/dL (1.3-3.2); Glucose 155 mg/dl (74-100); Potassium 3.8 mmoL/L (3.5-5.1); Sodium 139 mmol/L (136-145); Total Protein,Serum 6.7 g/dl (6.3-8.2)
[2024-03-11 16:08] LABS: Hemoglobin A1C 5.5 % (4.0-6.0)
== END 2024-03-11 23:59 | disposition home or self-care (01) ==
LOC: RT 14:05
PROVIDERS: PCP Internal Medicine Adolescent Medicine; Visit Provider Podiatrist
DX: R60.9 Edema, unspecified (principal); R23.4 Changes in skin texture; Z98.890 Other specified postprocedural states; R73.9 Hyperglycemia, unspecified; T81.89XA Other complications of procedures, not elsewhere classified, initial encounter
CPT/HCPCS: 36415; 80053; 83036; 84550; 85025; 85378; 85651; 86140; 93971

== ENCOUNTER 2024-07-26 16:14 | Outpatient (CLI) | payer BC, SELFPAY ==
[2024-07-26 17:55] LABS: Uric Acid 6.9 mg/dl (2.5-6.2)
== END 2024-07-26 23:59 | disposition home or self-care (01) ==
LOC: LAB 16:16
PROVIDERS: PCP Internal Medicine Adolescent Medicine; Visit Provider Internal Medicine
DX: M1A.00X1 Idiopathic chronic gout, unspecified site, with tophus (tophi) (principal)
CPT/HCPCS: 36415; 84550

== ENCOUNTER 2024-11-16 11:13 | Outpatient (CLI) | payer BC, SELFPAY ==
--- NOTE | 2024-11-16 11:17 | CA_ITS ---
FINAL REPORT CLINICAL HISTORY: Hx of gout. Recently started a new medicine for gout and states her left leg started bruising and appeared blue at the ankle. FINDINGS: DUPLEX VENOUS SONOGRAPHY OF THE BILATERAL LOWER EXTREMITIES Multiple transverse and longitudinal scans were performed of the femoropopliteal deep venous systems, with augmentation and compression maneuvers. FINDINGS: Normal phasic flow was noted in the visualized deep venous systems. No intraluminal increased echogenicity is noted to suggest thrombus. There is normal compression and augmentation of the venous structures. No abnormal venous collaterals are seen. IMPRESSION: No evidence of deep venous thrombosis of the bilateral lower extremities. Reviewed, Interpreted and Dictated by Winnie Hong MD Transcribed by Cara Cameron Authenticated and . [facility]
== END 2024-11-16 23:59 | disposition home or self-care (01) ==
LOC: RT 11:14
PROVIDERS: PCP Internal Medicine Adolescent Medicine; Visit Provider Internal Medicine Adolescent Medicine
DX: S80.12XA Contusion of left lower leg, initial encounter (principal); M79.604 Pain in right leg; M79.605 Pain in left leg
CPT/HCPCS: 93970

== ENCOUNTER 2025-03-11 22:06 | Observation (INO) | payer BC, SELFPAY ==
--- OUTSIDE RECORDS SUMMARY | 2024-11-03 11:15 | XMS_ITS ---
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 Name Role Phone Librado Abarca Primary Care Provider [phone] REASON FOR VISIT gout Encounters Encounter Location Date Provider Diagnosis [facility] [address] [address] 11/03/2024 Librado Abarca Plan Of Treatment Next Appt Details Provider Name:Librado Abarca, 03/21/2025 12:30:00 PM, [address] [place] [address], [phone], Progress Notes * Dmitriy PANTOJA MDOB:03/1970 (55 yo F)Acc No.[id number]:11/03/2024 Progress Notes Patient: Dmitriy VERDE Provider: Ricardo Abarca MD :1970 A ge:54 Y S ex:Female Date:11/03/2024 Address:[address] [place] [address], [id number] Subjective: * Chief Complaints: * 1 . Gout. * Medical History: Objective: * Vitals: Assessment: Plan: * Treatment: * * Electronic signature of John Abarca MD FAAP on 03/11/2025 at 10:16 PM EDT Sign off status: Pending * Provider: Ricardo Abarca MD Date: 0 11/03/2024 Generated for Cami weaver/Maldonado/Saritha on: 0 03/11/2025 10:16 PM EDT
--- OUTSIDE RECORDS SUMMARY | 2025-01-30 10:30 | XMS_ITS | Encounter Summary ---
Author Organization [facility] Address [address] [place] [address] Care Team Providers Care Kiln Repairer Name Role Phone Librado Abarca MD Primary Care Provider + [phone] Reason for Referral * Consultation (Routine) - Authorized Specialty Diagnoses / Procedures Referred By Contact Referred To Contact Gastroenterology Diagnoses Colon cancer screening Procedures [place] OFFICE/OUTPATIENT NEW MODERATE MDM 45 MINUTES Liana Brock MD [address] [place] [address] Phone: tel: fax: [facility] GASTROENTEROLOGY [address] [address] Phone: tel: fax: Referral ID Status Reason Start Date Expiration Date Visits Requested Visits Authorized [id number] Authorized Specialty Services Required 01/30/2025 05/01/2026 1 1 Reason for Visit * Reason Comments Gynecologic Exam Annual. Encounter Details Date Type Department Care Team (Late st Contact Info) Description 01/30/2025 10:30 AM EDT Office Visit [facility] GYNECOLOGY [address] [phone] Liana Brock MD [address] [place] [address] Women's annual routine gynecological examination (Primary Dx); [...] be screened for STD's at today's exam. [place] is painful: no HEALTH Hx: She exercises [...] of the external genitalia including Bartholin's and Elverta's glands. : urethral meatus normal; urethra normal: Vaginal: atrophic mucosal changes are present; Cervix: absent. Uterus: absent. Adnexa: absent, bilateral. Rectal: digital rectal exam not performed; anus visually normal appearing. 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 Vaginal atrophy History of [...] Description 08/11/2025 10:00 AM EST Office Visit [facility] RHEUMATOLOGY [address] [phone] Jackie Webber APRN [address] [address] 02/01/2026 10:30 AM EDT Office Visit [facility] GYNECOLOGY [address] [phone] Liana Brock MD [address] [address] Scheduled Referrals Name Type Priority Associated Diagnoses Order Schedule Ambulatory Referral to Gastroenterology Outpatient Referral Routine Colon cancer screening Ordered: 01/30/2025 documented as of this encounter Visit Diagnoses Diagnosis Women's annual routine gynecological examination- Primary Colon cancer screening Special screening for malignant neoplasms, colon History of herpes genitalis History of CVA in adulthood documented in this encounter Care Teams Kiln Repairer Relationship Specialty Start Date End Date Librado Abarca MD [address] [facility] [address] [place] [address] PCP - General Adolescent Medicine 06/16/24 documented as of this encounter
--- OUTSIDE RECORDS SUMMARY | 2025-02-09 09:45 | XMS_ITS | Encounter Summary ---
Author Organization [facility] Address [address] [place] [address] Care Team Providers Care Real Estate Associate Attorney Name Role Phone Librado Abarca MD Primary Care Provider [phone] Reason for Visit * Reason Comments Osteoarthritis Follow up Fibromyalgia Follow up Gout Follow up Encounter Details Date Type Department Care Team (Latest Contact Info) Description 02/09/2025 9:45 AM EDT Office Visit [facility] RHEUMATOLOGY [address] [phone] Obdulio De Paz DO [address] [phone] Idiopathic chronic gout with tophus, unspecified site [...] Everywhere. * Myofascial Pain Syndrome and Fibromyalgia ([place]) documented in this encounter Progress Notes * [...] she had foot surgery, She has seen [facility] Rheumatology, Febuxostat (side effects) She has tried [...] saw Hernán Reagan MD. He was a magneto specialist 10. She has taken gabapentin 11. She [...] she had foot surgery, She has seen [facility] Rheumatology, Febuxostat (side effects) She has tried [...] saw Hernán Reagan MD. He was a magneto specialist 10. She has taken gabapentin 11. She [...] months (around 08/12/2025). Obdulio De Paz DO [facility] Rhe[facility]ology of [place] * Jackie Webber, ANNUAL GREENHOUSE MANAGER - 02/09/2025 9:30 AM EDTAssociated Problem(s): Idiopathic chronic gout with tophus Medication/treatment/interventions tried include: Tylenol, Colchicine (Shortness of breath), allopurinol (GI intolerance), She is sulfa allergic (Cannot take sulfasalazine, she has seen podiatry, indomethacin, gabapentin, Desvenlafaxine, amitriptyline, she has seen neurology, She saw Hernán Reagan MD in 2005 - 2009 (rheumatology), Cymbalta, ibuprofen, chlorzoxazone, Topamax, Skelaxin, she had foot surgery, She has seen [facility] Rheumatology Studies reviewed included: 03/11/24: CBC ok, [...] saw Hernán Reagan MD. He was a magneto specialist 10. She has taken gabapentin 11. She [...] she had foot surgery, She has seen [facility] Rheumatology Studies reviewed included: 03/11/24: CBC ok, [...] she had foot surgery, She has seen [facility] Rheumatology Studies reviewed included: 03/11/24: CBC ok, [...] saw Hernán Reagan MD. He was a magneto specialist 10. She has taken gabapentin 11. She [...] No follow-ups on file. Jackie Webber APRN [facility] Rheumatology [facility] documented in this encounter Plan of Treatment Upcoming Encounters Date Type Department Care Team (Late st Contact Info) Description 08/11/2025 10:00 AM EST Office Visit [facility] RHEUMATOLOGY [address] [phone] Jackie Webber, ANNUAL GREENHOUSE MANAGER [address] [address] 02/01/2026 10:30 AM EDT Office Visit [facility] GYNECOLOGY [address] [address] Liana Brock MD [address] [address] documented as of this encounter Visit Diagnoses Diagnosis Idiopathic chronic gout with tophus, unspecified site- Primary Fibromyalgia Unspecified myalgia and myositis Primary osteoarthritis involving multiple joints documented in this encounter Care Teams Real Estate Associate Attorney Relationship Specialty Start Date End Date Librado Abarca MD 1210 [facility] [address] [facility] [address] [place] [address] PCP - General Adolescent Medicine 06/16/24 documented as of this encounter
--- OUTSIDE RECORDS SUMMARY | 2025-03-11 22:16 | XMS_ITS | Encounter Summary ---
Author Organization [facility] Address [address] [address] Care Team Providers Care Utilities Manager Name Role Phone Librado Abarca MD Primary Care Provider + [phone] Encounter Details Date Type Department Care Team (Latest Contact Info) Description 01/30/2025 Travel Social History Tobacco Use Types Packs/Day Years [...] on file documented as of this encounter Plan of Treatment Upcoming Encounters Date Type Department Care Team (Late st Contact Info) Description 08/11/2025 10:00 AM EST Office Visit [facility] RHEUMATOLOGY [address] [phone] Jackie Webber, SALES PERFORMANCE ANALYST [address] [address] 02/01/2026 10:30 AM EDT Office Visit [facility]OLOG[facility] [address] [facility] [address] Liana Brock MD [address] [address] documented as of this encounter Visit Diagnoses Not on filedocumented in this encounter Care Teams Utilities Manager Relationship Specialty Start Date End Date Librado Abarca MD 1210 [place] [facility] [address] [place] [address] PCP - General Adolescent Medicine 06/16/24 documented as of this encounter
--- OUTSIDE RECORDS SUMMARY | 2025-03-11 22:16 | XMS_ITS | Clinical Summary ---
Author Organization [facility] Address [address] [place] [address] Care Team Providers Care Customs Compliance Specialist Name Role Phone Librado Abarca MD Primary Care Provider + [phone] Allergies Active Allergy Reactions Criticality Noted Date Comments Allopurinol GI Intolerance,Other (See Comments) Low 01/07/2024 Azithromycin Rash Low 04/18/2018 Cefdinir Other (See Comments) Low 05/15/2011 thrush Clarithromycin Other (See Comments) 08/17/2008 thrush Clindamycin Other (See Comments) 01/30/2025 Colchicine Shortness Of Breath High 01/07/2024 Dexamethasone Palpitations Low 01/27/2024 Doxycycline Other (See Comments) Low 01/07/2024 thrush Metronidazole Rash Low 04/18/2018 Sulfa Antibiotics Rash Low 04/18/2018 Trazodone Other (See Comments) Low 04/18/2018 Blood pressure problems Medications pilocarpine (SALAGEN) 5 MG tablet Take 2 tablets by mouth 2 (Two) Times a Day. Active Probiotic Product (ALIGN PO) Take 1 tablet by mouth Daily. Active levothyroxine (SYNTHROID, LEVOTHROID) 25 MCG tablet Take 1 tablet by mouth Daily. Active fluconazole (DIFLUCAN) 150 MG tablet Take 1 tablet by mouth. As needed Active indomethacin (INDOCIN) 25 MG capsule Take 1 capsule by mouth. 4 Active albuterol sulfate HFA 108 (90 Base) MCG/ACT inhaler Inhale 1 puff Daily As Needed for Shortness of Air or Wheezing. 4 Active hyoscyamine (LEVSIN) 0.[address] 1 tablet under the tongue Every 8 (Eight) Hours As Needed for Cramping or Diarrhea. Active triamterene (DYRENIUM) 50 MG capsule Take 1 capsule by mouth Daily. Active desvenlafaxine (PRISTIQ) 100 MG 24 hr tablet Take 1 tablet by mouth Daily. Active Focalin XR 30 MG 24 hr capsule Take 1 capsule by mouth Daily Active valACYclovir (Valtrex) 500 MG tablet Take 1 tablet by mouth 2 (Two) Times a Day. 60 tablet 11 5 Active levothyroxine (SYNTHROID, LEVOTHROID) 75 MCG tablet 1 tab(s) orally once a day; Duration: 30 days Active pilocarpine (SALAGEN) 7.5 MG tablet 1 TAB(S) ORALLY twice a day; Duration: 90 days Active terazosin (HYTRIN) 10 MG capsule take 1 capsule by mouth twice daily 5 Active probenecid (BENEMID) 500 MG tablet Take 0.5 tablets by mouth 2 (Two) Times a Day. 60 tablet 5 5 Active Active Problems Problem Noted Date Diagnosed Date History of CVA in adulthood 01/30/2025 Fibromyalgia 06/16/2024 Assessment & Plan (02/09/2025 11:04 AM EDT): 1. H & P consistent with this [...] saw Hernán Reagan MD. He was a grain distributor 10. She has taken gabapentin 11. She has taken Desvenlafaxine. 12. She has seen neurology 13. She has tried taking Topamax. Assessment & Plan (02/01/2025 12:01 PM EDT): 1. H & P consistent with this [...] saw Hernán Reagan MD. He was a grain distributor 10. She has taken gabapentin 11. She has taken Desvenlafaxine. 12. She has seen neurology 13. She has tried taking Topamax. Assessment & Plan (06/16/2024 2:17 PM EST): 1. H & P consistent with this [...] saw Hernán Reagan MD. He was a grain distributor 10. She has taken gabapentin 11. She has taken Desvenlafaxine. 12. She has seen neurology 13. She has tried taking Topamax. Orders: CARLOS A 12 Plus Profile (RDL); Future 14.3.3 ETA, Rheum. Arthritis; Future CARLOS A by IFA, Reflex to Titer and Pattern; Future ANCA Panel; Future Beta-2 Glycoprotein Antibodies; Future CBC Auto Differential; Future CK; Future Comprehensive Metabolic Panel; Future C-reactive Protein; Future Cyclic Citrul Peptide Antibody, IgG / IgA; Future HLA-B27 Antigen; Future RF Isotypes, IgG, IgA, IgM EIA; Future Sedimentation Rate; Future Thyroid Antibodies; Future TSH+Free T4; Future Urinalysis With Culture If Indicated -; Future Aldolase; Future QuantiFERON-TB Gold Plus; Future Hepatitis Panel, Acute; Future Primary osteoarthritis involving multiple joints 06/16/2024 Assessment & Plan (02/09/2025 11:04 AM EDT): Tylenol PRN is ok as directed She has taken oral NSAIDs like ibuprofen She has seen podiatry She has taken muscle relaxer's PRN. She has had foot surger Assessment & Plan (02/01/2025 12:01 PM EDT): Tylenol PRN is ok as directed She has taken oral NSAIDs like ibuprofen She has seen podiatry She has taken muscle relaxer's PRN. She has had foot surgery Assessment & Plan (06/16/2024 2:17 PM EST): Tylenol PRN is ok as directed She has taken oral NSAIDs like ibuprofen She has seen podiatry She has taken muscle relaxer's PRN. She has had foot surgery Orders: CARLOS A 12 Plus Profile (RDL); Future 14.3.3 ETA, Rheum. Arthritis; Future CRALOS A by IFA, Reflex to Titer and Pattern; Future ANCA Panel; Future Beta-2 Glycoprotein Antibodies; Future CBC Auto Differential; Future CK; Future Comprehensive Metabolic Panel; Future C-reactive Protein; Future Cyclic Citrul Peptide Antibody, IgG / IgA; Future HLA-B27 Antigen; Future RF Isotypes, IgG, IgA, IgM EIA; Future Sedimentation Rate; Future Thyroid Antibodies; Future TSH+Free T4; Future Urinalysis With Culture If Indicated -; Future Aldolase; Future QuantiFERON-TB Gold Plus; Future Hepatitis Panel, Acute; Future Idiopathic chronic gout with tophus 06/16/2024 Assessment & Plan (02/09/2025 11:04 AM EDT): Medication/treatment/interventions tried include: Tylenol, Colchicine (Shortness of breath), allopurinol (GI intolerance), She is sulfa allergic (Cannot take sulfasalazine, she has seen podiatry, indomethacin, gabapentin, Desvenlafaxine, amitriptyline, she has seen neurology, She saw Hernán Reagan MD in 2005 - 2009 (rheumatology), Cymbalta, ibuprofen, chlorzoxazone, Topamax, Skelaxin, she had foot surgery, She has seen [facility] Rheumatology, Febuxostat (side effects) She has [...] labs done at her PCP office recently. Assessment & Plan (02/01/2025 12:01 PM EDT): Medication/treatment/interventions tried include: Tylenol, Colchicine (Shortness of breath), allopurinol (GI intolerance), She is sulfa allergic (Cannot take sulfasalazine, she has seen podiatry, indomethacin, gabapentin, Desvenlafaxine, amitriptyline, she has seen neurology, She saw Hernán Reagan MD in 2005 - 2009 (rheumatology), Cymbalta, ibuprofen, chlorzoxazone, Topamax, Skelaxin, she had foot surgery, She has seen [facility] Rheumatology Studies reviewed included: 03/11/24: CBC [...] to 80 mg/day. Risks and benefits reviewed. Assessment & Plan (06/16/2024 2:17 PM EST): She has tried taking oral NSAIDS like [...] to 80 mg/day. Risks and benefits reviewed. Orders: CARLOS A 12 Plus Profile (RDL); Future 14.3.3 ETA, Rheum. Arthritis; Future CARLOS A by IFA, Reflex to Titer and Pattern; Future ANCA Panel; Future Beta-2 Glycoprotein Antibodies; Future CBC Auto Differential; Future CK; Future Comprehensive Metabolic Panel; Future C-reactive Protein; Future Cyclic Citrul Peptide Antibody, IgG / IgA; Future HLA-B27 Antigen; Future RF Isotypes, IgG, IgA, IgM EIA; Future Sedimentation Rate; Future Thyroid Antibodies; Future TSH+Free T4; Future Urinalysis With Culture If Indicated -; Future Aldolase; Future QuantiFERON-TB Gold Plus; Future Hepatitis Panel, Acute; Future Encounters Date Type Department Care Team Description 02/09/2025 9:45 AM EDT Office Visit [facility] RHEUMATOLOGY [address] [address] Obdulio De Paz DO Idiopathic chronic gout with tophus, unspecified site (Primary Dx); Fibromyalgia; Primary osteoarthritis involving multiple joints 02/09/2025 Travel 01/30/2025 10:30 AM EDT Office Visit [facility] GYNECOLOGY [address] [place] [address] Liana Brock MD Women's annual routine gynecological examination (Primary Dx); Colon cancer screening; History of herpes genitalis; History of CVA in adulthood 01/30/2025 Travel 01/22/2025 Refill [facility] RHEUMATOLOGY [address] [phone] Obdulio De Paz DO from Last 3 Months Family History Medical History Relation Name Comments Stroke Daughter Diabetes Father Breast cancer Maternal Aunt Relation Name Status Comments Daughter Father Maternal Aunt Social History Tobacco Use Types Packs/Day Years [...] on file Sexual Orientation Not on file Last Filed Vital Signs Vital Sign Reading Time Taken Comments Blood Pressure 154/100 02/09/2025 10:20 AM EDT Pulse 78 02/09/2025 10:20 AM EDT Temperature 36.4 C (97.5 F) 02/09/2025 10:20 AM EDT Respiratory Rate 20 04/18/2018 5:08 PM EDT Oxygen Saturation 98% 04/18/2018 5:08 PM EDT Inhaled Oxygen Concentration - - Weight 69.5 kg (153 lb 4.8 oz) 02/09/2025 10:20 AM EDT Height 154.9 cm (5' 0.98 ) 02/09/2025 10:20 AM E DT Body Mass Index 28.98 02/09/2025 10:20 AM EDT Plan of Treatment Upcoming Encounters Date Type Department Care Team (Late st Contact Info) Description 08/11/2025 10:00 AM EST Office Visit [facility] RHEUMATOLOGY [address] [phone] Jackie Webber, BEER COIL CLEANER [address] [address] 02/01/2026 10:30 AM EDT Office Visit [facility] GYNECOLOGY [address] [phone] Liana Brock MD [address] [place] [phone] Health Maintenance Due Date Last Done Comments COLON CANCER SCREENING 5 YEA R SIGMO[address] COLONOGRAPHY 2014 FECAL OCCULT BLOOD TEST 2014 FIT Testing (1 year) 2014 ANNUAL PHYSICAL 04/18/2018 Pneumococcal Vaccine 50+ (1 of 1 - PCV) 2019 ZOSTER VACCINE (1 of 2) 2019 COVID-19 Vaccine (4 - 2023-2 5 season) 2024 06/23/2021, 12/25/2020, 11/16/2020 COLOGUARD 05/12/2024 05/12/2021 INFLUENZA VACCINE 04/12/2025 04/29/2022, , 06/19/2016 Annual Gynecologic Pelvic an d Breast Exam 01/31/2026 01/30/2025 MAMMOGRAM 10/18/2026 10/18/2024, 05/14, 06/10/2022, Additional history exists COLONOSCOPY 06/12/2031 06/12/2021, 06/25/2016 COLORECTAL CANCER SCREENING 06/12/2031 TDAP/TD VACCINES (2 - Td or Tdap) 08/07/2031 022 HEPATITIS C SCREENING Completed 06/16/2024 Procedures Procedure Name Priority Date/Time Associated Diagnosis Comments MAMMO DIAGNOSTIC DIGITAL TOMOSYNTHESIS BILATERAL W CAD Routine 10/18/2024 9:19 AM EDT Mass of right breast, unspecified quadrant HEPATITIS PANEL, ACUTE Routine 06/16/2024 3:11 PM EST Arthralgia, unspecified joint Fatigue, unspecified type Fibromyalgia Primary osteoarthritis involving multiple joints Idiopathic chronic gout with tophus, unspecified site from Last 3 Months or Most Recently Relevant to Health Maintenance Results * Mammo Diagnostic Digital Tomosynthesis Bilateral With CAD (10/18/2024 9:19 AM EDT) Anatomical Region Laterality Modality Breast Bilateral Mammography 10/18/2024 8:37 AM EDT Impressions 10/18/2024 11:09 AM EDT 1. Right breast: No sonographic or mammographic abnormality identified in the patient's palpable area of concern. Clinical findings with negative imaging should be managed on clinical basis. Based on today's imaging, recommendation is for continued routine annual screening mammogram. Patient is also seen for a single episode of nonspecific right nipple discharge with no other details noted. As the patient has not had any further nipple discharge in the past 2 months and this seems to be an isolated incident clinical management is recommended. I discussed the characteristics of pathologic nipple discharge to include spontaneous nipple discharge from a single duct that is crystal-clear and/or bloody. Instructed the patient to return to her clinical provider if she were to develop nipple discharge with any of these characteristics or if her nonspecific single episode of nipple discharge returned as additional imaging would then be indicated with breast MRI. 2. Left breast: No sonographic or mammographic abnormality identified the patient's palpable area of concern. Clinical findings with negative imaging should be managed on clinical basis. Based on today's imaging, recommendation is for continued routine annual screening mammogram. 3. Today's findings and recommendations were discussed with the patient at the time of the examination by myself. OVERALL ASSESSMENT: BI-RADS Category 1: Negative. Recommend continued routine follow-up. 10/18/2024 11:09 AM by Maria L Weir MD on Narrative 10/18/2024 11:09 AM EDT EXAM: MAMMO DIAGNOSTIC DIGITAL TOMOSYNTHESIS BILATERAL W CAD, limited bilateral breast ultrasound- DATE:10/18/2024 8:35 AM INDICATION: 54-year-old female who presents for palpable area of concern in each breast. Patient also reports a single episode of right nipple discharge. Maternal aunt with history of breast cancer. COMPARISON: Comparison is made to prior studies dating back to 06/25/2016. TECHNIQUE: 2D/3D CC and MLO views of each breast were obtained FINDINGS: There are scattered fibroglandular densities. Right breast: A skin triangle hopper the patient's palpable area of concern. No suspicious abnormality is seen in the region of the skin marker. No suspicious masses, calcifications, or areas of distortion are seen. Left breast: A skin triangle hopper the patient's palpable area of concern. No discrete abnormality is seen in the region of the skin marker. No suspicious masses, calcifications, or areas of distortion are seen. On today's ultrasound examination, the patient reports a single episode of nonspecific right nipple discharge which she noted wetness on her shirt. She has not had any further episodes of nipple discharge. Right breast: Targeted sonographic imaging of each breast was performed by the technologist and myself. Right breast: In the patient's palpable area of concern centered about the 10:30 right breast 6 cm from the nipple there is normal breast tissue. No suspicious abnormality is seen. The subareolar right breast there is normal breast tissue. No suspicious abnormality is seen. Left breast: Sonographic imaging of the patient's area of concern 3:00 left breast 5 cm from the nipple demonstrates normal breast tissue. Technologist notes a mildly prominent subcentimeter fat lobule. No suspicious abnormality is identified. Librado Abarca MD [facility] MAMMOGRAPHY ORDERABLES F inal Result * Hepatitis Panel, Acute (06/16/2024 3:11 PM EST) Hepatitis B Surface Ag Non-Reacti ve Non-Reacti ve 06/17/2024 4:02 AM EST [facility] Hep A IgM Non-Reacti ve Non-Reacti ve 06/17/2024 4:02 AM EST [facility] Hep B C IgM Non-Reacti ve Non-Reacti ve 06/17/2024 4:02 AM EST [facility] Hepatitis C Ab Non-Reacti ve Non-Reacti ve 06/17/2024 4:02 AM EST [facility] Blood Venipuncture / Unknown 06/16/2024 3:11 PM EST 06/16/2024 3:11 PM EST Narrative [facility] - 06/17/2024 4:02 AM EST Results may be falsely decreased if patient taking Biotin. Obdulio De Paz DO LAB BLOOD ORDERABLES F inal Result [facility]
[address] [place] [address], [place] [phone] from Last 3 Months or Most Recently Relevant to Health Maintenance Insurance EMPLOYEE Care Teams Customs Compliance Specialist Relationship Specialty Start Date End Date Librado Abarca MD 1210 [facility] [address] [address] PCP - General Adolescent Medicine 06/16/24
--- OUTSIDE RECORDS SUMMARY | 2025-03-11 22:16 | XMS_ITS | Encounter Summary ---
Author Organization [facility] Address [address] [place] [address] Care Team Providers Care Electrical Project Manager Name Role Phone Librado Abarca MD Primary Care Provider + [phone] Encounter Details Date Type Department Care Team (Latest Contact Info) Description 02/09/2025 Travel Social History Tobacco Use Types Packs/Day Years Used Date Smoking Tobacco: Never Smokeless Tobacco: Never Alcohol Use Standard Drinks/Week Comments [...] Description 08/11/2025 10:00 AM EST Office Visit [facility] RHEUMATOLOGY [address] [phone] Jackie Webber APRN [address] [address] 02/01/2026 10:30 AM EDT Office Visit [facility] GYNECOLOGY [address] [phone] Liana Brock MD [address] [address] documented as of this encounter Visit Diagnoses Not on filedocumented in this encounter Care Teams Electrical Project Manager Relationship Specialty Start Date End Date Librado Abarca MD [address] [facility] [address] [place] [address] PCP - General Adolescent Medicine 06/16/24 documented as of this encounter
--- OUTSIDE RECORDS SUMMARY | 2025-03-11 22:16 | XMS_ITS | Encounter Summary ---
Author Organization [facility] Address [address] [place] [address] Care Team Providers Care Part Maker Name Role Phone Librado Abarca MD Primary Care Provider + [phone] Reason for Visit * Reason Comments Med Refill Encounter Details Date Type Department Care Team (Late st Contact Info) Description 01/22/2025 Refill [facility] RHEUMATOLOGY 330 [facility] [address] [place] [address] Obdulio De Paz DO 330 [facility] [address] [place], [place] [id number] Social History Tobacco Use Types Packs/Day Years [...] on file documented as of this encounter Miscellaneous Notes * Telephone Encounter - Sharri Corcoran MA - 01/24/2025 10:45 AM EDT Rx Refill Note Requested Prescriptions Pending Prescriptions Disp Refills febuxostat (ULORIC) 40 MG tablet [Pharmacy Med Name: FEBUXOSTAT 40MG TABLETS] 60 tablet 5 Sig: TAKE 1 TABLET(40 MG) BY MOUTH DAILY FOR 2 WEEKS THEN INCREASE TO 80 MG DAILY(2 TABLETS A DAY) Last office visit with prescribing clinician: 06/16/2024 Last telemedicine visit with prescribing clinician: Visit date not found Next office visit with prescribing clinician: 02/09/2025 Sharri Corcoran MA 01/24/25, 10:45 EDT Red X's unable to send in. Please send to pharmacy on file. documented in this encounter Plan of Treatment Upcoming Encounters Date Type Department Care Team (Late st Contact Info) Description 08/11/2025 10:00 AM EST Office Visit [facility] RHEUMATOLOGY 330 [facility] [address] [place] [phone] Jackie Webber, SENIOR PROJECT CONTROLS SPECIALIST 330 [facility] [address] [place], [place] [phone] 02/01/2026 10:30 AM EDT Office Visit [facility] GYNECOLOGY [address] [address] Liana Brock MD [address] [address] documented as of this encounter Visit Diagnoses Not on filedocumented in this encounter Care Teams Part Maker Relationship Specialty Start Date End Date Librado Abarca MD 1210 [facility] [address] [place] [address] PCP - General Adolescent Medicine 06/16/24 documented as of this encounter
--- OUTSIDE RECORDS SUMMARY | 2025-03-11 22:17 | XMS_ITS | Clinical Summary ---
Author Organization [facility] Address [address] [place] [address] Care Team Providers Care Fieldwork Coordinator Name Role Phone Librado Abarca MD Primary Care Provider [phone] Abel Alexander Unavailable Allergies Active Allergy Reactions Criticality Noted Date Comments Allopurinol Other - please docum ent in the comment field Low 01/07/2024 Azithromycin Rash Low 04/18/2018 Cefdinir Other - please docum ent in the comment field Low 05/15/2011 Colchicine Shortness of breath High 01/07/2024 Dexamethasone Other - please docum ent in the comment field Low 01/27/2024 Doxycycline Other - please docum ent in the comment field Low 01/07/2024 Levofloxacin Other - please docum ent in the comment field Low 10/11/2024 Metronidazole Rash Low 04/18/2018 Sulfa Drugs Rash Low 04/18/2018 Trazodone Other - please docum ent in the comment field High 04/18/2018 Blood pressure problems Medications albuterol 108 (90 Base) MCG/ACT inhaler INHALE 2 PUFFS BY MOUTH FOUR TIMES DAILY NEEDED FOR ASTHMA SYMPTOMS 4 Active amitriptyline (Elavil) 25 MG tablet Take 1 tablet (25 mg) by mouth every night. 4 Active desvenlafaxine (Pristiq) 50 MG 24 hr tablet Take 2 tablets by mouth in the morning. Active dexmethylphenid ate XR (Focalin XR) 40 MG 24 hr capsule Take 1 capsule (40 mg) by mouth 1 (one) time each day. Active hyoscyamine (Levsin) 0.125 MG SL tablet DISSOLVE 1 TABLET UNDER THE TONGUE EVERY 8 HOURS NEEDED Active indomethacin (Indocin) 25 MG capsule TAKE 1 CAPSULE BY MOUTH THREE TIMES DAILY FOR 14 DAYS NEEDED FOR GOUT Active levothyroxine (Synthroid, Levoxyl) 75 MCG tablet Take 1 tablet (75 mcg) by mouth 1 (one) time each day. 4 Active meclizine (Antivert) 25 MG tablet TAKE 1 TABLET BY MOUTH THREE TIMES DAILY NEEDED FOR DIZZINESS 4 Active losartan (Cozaar) 50 MG tablet Take 1 tablet (50 mg) by mouth if needed. 4 Active pilocarpine (Salagen) 7.5 MG tablet Take 1 tablet (7.5 mg) by mouth 2 (two) times a day. 4 Active spironolactone (Aldactone) 100 MG tablet Take 0.5 tablets (50 mg) by mouth 1 (one) time each day. 4 Active terazosin (Hytrin) 10 MG capsule Take 1 capsule (10 mg) by mouth 2 (two) times a day. 4 Active Active Problems No known active problems Social History Tobacco Use Types Packs/Day Years Used Date Smoking Tobacco: Never Smokeless Tobacco: Never Tobacco Cessation:Counseling Given: Not Answered Alcohol Use Standard Drinks/Week Comments Not Currently 0 (1 standard drink = 0.6 oz pur e alcohol) Comments Unknown Sex and Gender Information Value Date Recorded Sex Assigned at Female 10/11/2024 11:50 AM EDT Legal Sex Female 7:28 PM EDT Gender Identity Not on file Sexual Orientation Not on file Last Filed Vital Signs Vital Sign Reading Time Taken Comments Blood Pressure 152/81 10/11/2024 11:59 AM EDT Pulse 93 10/11/2024 11:59 AM EDT Temperature - - Respiratory Rate - - Oxygen Saturation 98% 10/11/2024 11: 59 AM EDT Inhaled Oxygen Concentration - - Weight 69.8 kg (153 lb 14.1 oz) 025 11:59 AM EDT Height 154.9 cm (5' 1 ) 10/11/2024 11:5 9 AM EDT Body Mass Index 29.08 10/11/2024 11:59 AM EDT Plan of Treatment Health Maintenance Due Date Last Done Comments [facility]-Depression Screening 1969 [facility]-HIV Screening 1969 [facility]-Hepatitis C Screening 1969 [facility]-/Child/Adol SDOH Screenings 1969 [facility]- SDOH Screenings 1987 [facility]-Adult SDOH Screenings 1987 [facility]-Hepatitis B Vaccines (1 of 3 - 19+ 3-dose series) 02/19/1988 CT Colonography 2014 Colonoscopy 2014 FIT-DNA 2014 FIT 2014 FOBT 2014 Sigmoidoscopy 2014 [facility]-Colorectal Cancer Screening 2014 [facility]-Breast Cancer Screening 2019 [facility]-Pneumococcal Vaccine: 50 + Years (1 of 1 - PCV) 2019 [facility]-Zoster Vaccines (1 of 2) 2019 [id number] Vaccine (4 - 2023- season) 2024 06/23/2021, 12/25/2020, 11/16/2020 [facility]-Influenza Vaccine (#1) 03/13/202504/29, 06/05/2021 [facility]-Diabetes: Hemoglobin A1C 10/11/2025 10/11/2024 [facility]-DTaP,Tdap,and Td Vaccine s (2 - Td or Tdap) 08/07/2031 08/07/2021 [facility]-Obesity Intervention Completed 025, 04/26/2024 HPV Vaccines Aged Out No longer eligi ble based on patient's age to complete this topic [facility]-HIB Vaccines Aged Out No longer e ligible based on patient's age to complete this topic [facility]-Hepatitis A Vaccines Aged Out No longer eligible based on patient's age to complete this topic [facility]-IPV Vaccines Aged Out No longer e ligible based on patient's age to complete this topic [facility]-Rotavirus Vaccines Aged Out No lo nger eligible based on patient's age to complete this topic Procedures Procedure Name Priority Date/Time Associated Diagnosis Comments HEMOGLOBIN A1C Routine 10/11/2024 1:16 PM EDT TIA (transient ischemic attack) from Last 3 Months or Most Recently Relevant to Health Maintenance Results * (ABNORMAL) Hemoglobin A1c (10/11/2024 1:16 PM EDT) Hemoglobin A1c 5.8(H) <5.7 % 10/11/2024 3:32 PM EDT [facility] Blood Venous blood specimen / Unknown Venipuncture / Unknown 10/11/2024 1:16 PM EDT 10/11/2024 1:16 PM EDT Narrative [facility] - 10/11/2024 3:32 PM EDT HA1C Interpretive Data: Diagnosis of Diabetes: Diabetic > or = 6.5% Pre-diabetic 5.7 to 6.4% Non-diabetic < or = 5.6% Glycemic Targets for Type I and Type II Diabetics: Non- Adults <7.0% Adults <6.0% Children and Adolescents <7.5% Source: [place] [employer]. Standards of medical care in diabetes,2017. Diabetes Care.2017:40 (suppl 1):S1-S135. HbA1c assay performed by an ion-exchange chromatography method that is certified traceable to the DCCT. us Linette Edmond MD LAB BLOOD ORDERABLES Final Resu lt [facility] [address] [place] [address] from Last 3 Months or Most Recently Relevant to Health Maintenance Insurance [employer] Care Teams Fieldwork Coordinator Relationship Specialty Start Date End Date Librado Abarca MD [address] [place] [address] PCP - General Internal Medicine 04/26/24 Abel Alexander [address] [place] [address] Resident Neurology 10/11/24
--- OUTSIDE RECORDS SUMMARY | 2025-03-11 22:17 | XMS_ITS | Patient Health Record ---
Author Organization [facility] Address [address] [place] [address] Care Team Providers Care Student Liaison Officer Name Role Phone Librado Abarca Primary Care Provider Caro Worley Unavailable [phone] Jamila Justice Unavailable [phone] Migration, Provider Unavailable Unavailable Allergies Allergen (clinical drug ingredient) Drug/Non Drug Allergy documented on EMR Reaction Allergy Type Onset Date Status Information temporarily unavailable BIAXIN (uncoded) Unknown Allergy Active Information temporarily unavailable OMNICEF (uncoded) Unknown Allergy Active Information temporarily unavailable SULFA (uncoded) Unknown Allergy Active Information temporarily unavailable YEAST DRUGS (uncoded) Unknown Allergy Active Information temporarily unavailable Augmentin diarrhea Drug Allergy Active Information temporarily unavailable Zithromax Unknown Drug Allergy Active Information temporarily unavailable Doxycycline Unknown Drug Allergy Active Information temporarily unavailable Allopurinol itching, fever blisters Drug Allergy 07/19/2020 Active Information temporarily unavailable Colchicine stomach upset Drug Allergy Active Information temporarily unavailable Clindamycin Unknown Drug Allergy Active Information temporarily unavailable traZODone Unknown Drug Allergy Active Results Component Value Reference Range Notes Mammogram : Diagnostic Reviewed date:10/20/2024 01:50:12 PM Interpretation: Performing Lab: Notes/Report: BASIC METABOLIC PANEL (81379 ) Reviewed date:11/23/2024 10:57:46 AM Interpretation: Performing Lab:CB, [facility] [id number], [place] [id number] [place] Notes/Report: NON-FASTING; NON-FASTING GLUCOSE 115 65-99 mg/dL Fasting reference interval For someone without known diabetes, a glucose value between 100 and 125 mg/dL is consistent with prediabetes and should be confirmed with a follow-up test. UREA NITROGEN (BUN) 13 7-25 mg/dL CREATININE 0.77 0.50-1.03 mg/dL EGFR 91 > OR = 60 mL/min/1.73m2 BUN/CREATININE RATIO SEE NOTE: 6-22 (calc) Not Reported: BUN and Creatinine are within reference range. SODIUM 141 135-146 mmol/L POTASSIUM 3.9 3.5-5.3 mmol/L CHLORIDE 101 98-110 mmol/L CARBON DIOXIDE 30 20-32 mmol/L CALCIUM 10.1 8.6-10.4 mg/dL URIC ACID (905) Reviewed date:11/23/2024 10:58:02 AM Interpretation: Performing Lab:[facility] [employer], [employer] [id number] [place] Notes/Report: NON-FASTING; NON-FASTING URIC ACID 2.5 2.5-7.0 mg/dL Therapeutic ta rget for gout patients: <6.0 mg/dL CBC (INCLUDES DIFF/PLT) (639 9) Reviewed date:11/11/2024 09:40:15 AM Interpretation: Performing Lab:[facility] [employer], [id number] [place] Notes/Report: NON-FASTING; NON-FASTING; NON-FASTING WHITE BLOOD CELL COUNT 11.9 3.8-10.8 Thousand/ uL RED BLOOD CELL COUNT 5.04 3.80-5.10 Million/uL HEMOGLOBIN 13.9 11.7-15.5 g/dL HEMATOCRIT 41.4 35.0-45.0 % MCV 82.1 80.0-100.0 fL MCH 27.6 27.0-33.0 pg MCHC 33.6 32.0-36.0 g/dL For adults, a slight decrease in the calculated MCHC value (in the range of 30 to 32 g/dL) is most likely not clinically significant; however, it should be interpreted with caution in correlation with other red cell parameters and the patient's clinical condition. RDW 12.8 11.0-15.0 % PLATELET COUNT 364 140-400 Thousand/uL MPV 9.8 7.5-12.5 fL ABSOLUTE NEUTROPHILS 8782 [phone] cells/uL ABSOLUTE LYMPHOCYTES 2237 850-3900 cells/uL ABSOLUTE MONOCYTES 702 200-950 cells/uL ABSOLUTE EOSINOPHILS 143 15-500 cells/uL ABSOLUTE BASOPHILS 36 0-200 cells/uL NEUTROPHILS 73.8 LYMPHOCYTES 18.8 MONOCYTES 5.9 EOSINOPHILS 1.2 BASOPHILS 0.3 D-DIMER, QUANTITATIVE (8659) Reviewed date:11/11/2024 09:40:15 AM Interpretation: Performing Lab:[facility] [address], [employer] [id number] [place] Notes/Report: NON-FASTING; NON-FASTING; NON-FASTING D-DIMER, QUANTITATIVE 1.05 <0.50 mcg/mL FEU Elevated D-dimer levels are associated with DIC, malignancies, inflammation, sepsis, surgery, trauma, and . A D-dimer result less than 0.5 mcg/mL FEU, in conjunction with a non-high clinical pre-test probability assessment model, excludes deep vein thrombosis and pulmonary embolism. However, since D-dimer values increase with age, the [employer] recommends an age-adjusted cut-off value in patients older than 50. The calculation for an age adjusted cut-off value is age (years) x 0.01 mcg/mL FEU. For example, the cut-off for a 70-year-old patient would be 69 x 0.01 mcg/mL FEU. For additional information, please refer to http://education.[employer]/faq/SSR349 (This link is being provided for informational/educational purposes only.) BASIC METABOLIC PANEL (63164 ) Reviewed date:11/11/2024 09:40:15 AM Interpretation: Performing Lab:[facility] [id number] [employer], Execution [id number] [place] Notes/Report: NON-FASTING; NON-FASTING; NON-FASTING GLUCOSE 130 65-99 mg/dL Fasting reference interval For someone without known diabetes, a glucose value >125 mg/dL indicates that they may have diabetes and this should be confirmed with a follow-up test. UREA NITROGEN (BUN) 16 7-25 mg/dL CREATININE 0.98 0.50-1.03 mg/dL EGFR 68 > OR = 60 mL/min/1.73m2 BUN/CREATININE RATIO SEE NOTE: 6-22 (calc) Not Reported: BUN and Creatinine are within reference range. SODIUM 139 135-146 mmol/L POTASSIUM 3.7 3.5-5.3 mmol/L CHLORIDE 99 98-110 mmol/L CARBON DIOXIDE 27 20-32 mmol/L CALCIUM 10.1 8.6-10.4 mg/dL VENOUS DUPLEX LOWER BILATERA L Reviewed date:11/19/2024 10:07:04 AM Interpretation: Performing Lab: Notes/Report: Medications Medication SIG (Take, Route, Frequency, Duration) Notes Start Date End Date Status Synthroid 75 MCG 1 tab(s) orally once a day; Duration: 30 days Active Xanax 0.25 MG 1 tab(s) orally every 8 hours prn Active Pilocarpine HCl 7.5 MG 1 TAB(S) ORALLY twice a day; Duration: 90 days Active Desvenlafaxine ER ( SUCCINATE) 100 MG 1 TAB(S) ORALLY ONCE A DAY *Please review and pick correct strength-formulati on from [employer] options. If intended option is not shown, discontinue and re-order from Quick Search* Active Focalin XR 30 MG 1 CAP(S) ORALLY ONCE A DAY (IN THE MORNING) *Please review and pick correct strength-formulati on from [employer] options. If intended option is not shown, discontinue and re-order from Quick Search* Active Align 4 MG 1 CAP(S) ORALLY ONCE A DAY *Please review and pick correct strength-formulati on from [employer] options. If intended option is not shown, discontinue and re-order from Quick Search* Active Triamterene 50 MG 1 capsule Orally Once a day; Duration: 90 days Active Hyoscyamine Sulfate 0.125 MG 1 tab(s) sublingually every 8 hours; Duration: 30 day(s) Active Terazosin HCl 10 MG 1 cap(s) orally bid 01/07/2017 Active Airsupra 90 MCG-80 MCG/INH 2 INH INHALED EVERY 6 HOURS PRN; Duration: 30 DAYS STOP Ventolin *Please review and pick correct strength-formulati on from [employer] options. If intended option is not shown, discontinue and re-order from Quick Search* 09/28/2024 Active Indomethacin 25 MG 1 cap(s) orally 3 times a day as needed for gout; Duration: 30 days prn Active Immunizations Vaccine Route Administration Date Status Comme nts Influenza-Fluzone 3+years (NON-MEDICARE) IM Intramuscular 06/19/2016 Administered Boostrix IM Intramuscular 08/07/2021 Administered Problems Problem Type SNOMED Code ICD Code Onset Dates Problem Status W/U Status Risk Notes Problem Information temporarily unavailable Mixed hyperlipidemia (E78.2) Active confirmed Problem Information temporarily unavailable Hypokalemia (E87.6) Active confirmed Problem Information temporarily unavailable Vitamin D deficiency (E55.9) Active confirmed Problem Information temporarily unavailable Essential hypertension (I10) Active confirmed Problem Information temporarily unavailable Seasonal allergies (J30.2) Active confirmed Problem Information temporarily unavailable Urinary frequency (R35.0) Active confirmed Problem Information temporarily unavailable Elevated liver enzymes (R74.8) Active confirmed Problem Information temporarily unavailable Arthritis, multiple joint involvement (M12.9) Active confirmed Problem Information temporarily unavailable Acute idiopathic gout of left foot (M10.072) Active confirmed Problem Information temporarily unavailable Bilateral chronic serous otitis media (H65.23) Active confirmed Problem Information temporarily unavailable Migraine without aura and without status migrainosus, not intractable (G43.009) Active confirmed Problem Information temporarily unavailable Sicca syndrome (M35.00) Active confirmed Problem Information temporarily unavailable Rosacea (L71.9) Active confirmed Problem Information temporarily unavailable Gouty arthritis (M10.9) Active confirmed Problem Information temporarily unavailable Arthralgia of multiple joints (M25.50) Active confirmed Problem Information temporarily unavailable Hypothyroidism, unspecified type (E03.9) Active confirmed Problem Information temporarily unavailable TIA (transient ischemic attack) (G45.9) Active confirmed Problem Information temporarily unavailable Chronic cystitis (N30.20) Active confirmed Problem Information temporarily unavailable Burden's neuroma of right foot (G57.61) Active confirmed Problem Information temporarily unavailable Chronic GERD (K21.9) Active confirmed Problem Information temporarily unavailable Memory changes (R41.3) Active confirmed Problem Information temporarily unavailable Prediabetes (R73.03) Active confirmed Problem Information temporarily unavailable Acute urinary tract infection (N39.0) Active confirmed Problem Information temporarily unavailable Dyskinesia (G24.9) Active confirmed Problem Information temporarily unavailable Arthritis of hand (M19.049) Active confirmed Problem Information temporarily unavailable Elevated blood uric acid level (E79.0) Active confirmed Problem Information temporarily unavailable Acute UTI (urinary tract infection) (N39.0) Active confirmed Vital Signs Heart Rate 74 /min 12/13/2024 Temperature 97.9 degrees Fahrenheit 12/13/2024 Blood pressure diastolic 90 mm Hg 12/13/2024 Height 64 in 12/13/2024 Blood pressure systolic 146 mm Hg 12/13/2024 Weight 158 lbs 12/13/2024 BMI 27.12 kg/m2 12/13/2024 Encounters Encounter Location Date Provider Diagnosis [facility] [address] [place] [address] 10/15/2024 Provider Migration [facility] [address] [place] [address] 03/21/2024 Librado Abarca Dizziness R42 ; Elmer ry changes R41.3 and Abnormal involuntary movement R25.9 [facility] [address] [address] 03/29/2024 Librado Abarca TIA (transient ischemic attack) G45.9 [facility] [address] [address] 04/13/2024 Caro Worley Essential hypertensi on I10 ; Dizziness R42 and Memory changes R41.3 [facility] [address] [place] [address] 05/28/2024 Jamila McNees Bronchitis J40 and Thrush B37.0 [facility] [address] [place] [address] 06/01/2024 Librado Besson Acute bronchitis, unspecified organism J20.9 [facility] [address] [address] 07/28/2024 Librado Besson Acute URI J06.9 ; Mixed hyperlipidemia E78.2 and Dyskinesia G24.9 [facility] [address] [address] 09/27/2024 Librado Besson Unspecified lump in the right breast, unspecified quadrant N63.10 ; Unspecified lump in the left breast, unspecified quadrant N63.20 ; Essential hypertension I10 ; Hypothyroidism, unspecified type E03.9 and Mixed hyperlipidemia E78.2 [facility] [address] [place] [address] 10/27/2024 Librado Tevin Hypothyroidism, unspecified type E03.9 ; Gouty arthritis M10.9 ; Actinic keratosis L57.0 ; Peripheral edema R60.0 and Seasonal allergies J30.2 [facility] [address] [place] [address] 11/08/2024 Librado Besson Lower extremity heike a R60.0 and Ecchymosis R58 [facility] [address] [place] [address] 11/22/2024 Librado Besson Gouty arthritis M10. 9 [facility] [address] [place] [address] 12/13/2024 Librado Besson Acute URI J06.9 ; Essential hypertension I10 and Peripheral edema R60.0 [facility] [address] [place] [address] 03/18/2024 Librado Besson [facility] [address] [place] [address] 04/05/2024 Librado Besson [facility] [address] [place] [address] 04/08/2024 Librado Besson [facility] [address] [place] [address] 04/22/2024 Librado Besson [facility] [address] [place] [address] 05/25/2024 Librado Besson [facility] [address] [place] [address] 05/27/2024 Librado Besson [facility] [address] [place] [address] 05/30/2024 Jamila McNees Bronchitis J40 [facility] [address] [place] [address] 06/14/2024 Librado Besson [facility] [address] [place] [address] 09/15/2024 Librado Besson [facility] [address] [place] [address] 09/28/2024 Librado Besson Breast cancer screening by mammogram Z12.31 and Unspecified lump in the right breast, unspecified quadrant N63.10 [facility] [address] [address] 09/28/2024 Librado Besson [facility] [address] [facility] [address] [place], [place] [address] 10/13/2024 Librado Besson Unspecified lump in the right breast, unspecified quadrant N63.10 [facility] [address] [address] 11/03/2024 Librado Besson [facility] [address] [address] 11/09/2024 Librado Besson Elevated d-dimer R79.89 ; Pain in right leg M79.604 and Pain in left leg M79.605 [facility] [address] [facility] [address] [place], [place] [address] 11/25/2024 Librado Besson [facility] [address] [place] [address] 12/08/2024 Librado Besson [facility] [address] [facility] [address] [place] [address] 04/19/2024 Librado Besson [facility] [address] [facility] [address] [place] [address] 04/19/2024 Librado Besson [facility] [address] [place] [address] 06/03/2024 Librado Besson [facility] [address] [place] [address] 06/11/2024 Librado Besson Assessments Encounter Date Diagnosis (ICD Code) Assessment Notes Treatment Notes Treatment Clinical Notes Section Notes 04/13/2024 Essential hypertension (ICD-10 - I10) 03/29/2024 TIA (transient ischemic attack) (ICD-10 - G45.9) Given symptomatology, recurrent issues and family history with concern about fibromuscular dysplasia will get tertiary care evaluation with neurovascular center at Please note reviewed ER documentation 03/21/2024 Dizziness (ICD-10 - R42) - has had on and off vertiginous changes, saw neurology a few years prior - also has whooshing sound in her ears, neurology recommended ENT evaluation at that time if recurrence of symptoms for peripheral vertigo PLAN - carotid US ordered for further evaluation - ENT referral placed, if has established diagnosis, can consider vestibular rehab in future 11/09/2024 Elevated d-dimer (ICD-10 - R79.89) 11/08/2024 Lower extremity edema (ICD-10 - R60.0) Possibly having an acute gout flare because of the recent institution of Uloric. This really does not explain the edema or bruising although they are not clinically evident at this moment patient reports them over the past couple of days. Will check labs to make sure platelet counts and D-dimer are okay. Continue Uloric at this point, indomethacin for short-term gout relief pain 11/08/2024 Ecchymosis (ICD-10 - R58) 12/13/2024 Essential hypertension (ICD-10 - I10) Blood pressures improving. No change in plans. 12/13/2024 Acute URI (ICD-10 - J06.9) Discussed the etiology and expected course of a viral URI. Discussed supportive care and symptom management with PO fluids, Antipyretics, and antihistamines. Discussed the rational for not prescribing antibiotics for viral infection. Discussed the signs and symptoms of worsening condition and need for reassessment in clinic or ED. 11/22/2024 Gouty arthritis (ICD-10 - M10.9) Discussed with patient that I would refill refill indomethacin but I would like her to try to use it more sparingly. I am unclear about what she interprets as a gout flare sometimes. Check kidney function and uric acid. Follow-up in 3 weeks to see how she is doing on triamterene. 11/09/2024 Pain in right leg (ICD-10 - M79.604) 10/13/2024 Unspecified lump in the right breast, unspecified quadrant (ICD-10 - N63.10) 07/28/2024 Mixed hyperlipidemia (ICD-10 - E78.2) Trial of low-dose rosuvastatin given her intolerance to atorvastatin. Will follow-up in 2 months with labs 07/28/2024 Acute URI (ICD-10 - J06.9) I do not think she needs antibiotics. She seems disappointed by this. We discussed her normal lung exam. I think her rash might be a very mild e multiforme but I do not think it needs treatment at this point. Supportive care discussed. 03/21/2024 Memory changes (ICD-10 - R41.3) - patient has had some changes in her memory, stating she isn't as sharp as she was before. 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 - recent labs within normal limits PLAN - will check TSH today 10/27/2024 Gouty arthritis (ICD-10 - M10.9) discussed starting uloric 40 mg po daily 08/14 allergy to allopurinol and colcrys will trial uloric and then check labs in about 3 weeks, with uric acid level 10/27/2024 Hypothyroidism, unspecified type (ICD-10 - E03.9) re-check TFTs in 3 weeks at follow-up appointment 09/28/2024 Unspecified lump in the right breast, unspecified quadrant (ICD-10 - N63.10) 09/28/2024 Breast cancer screening by mammogram (ICD-10 - Z12.31) 09/27/2024 Unspecified lump in the right breast, unspecified quadrant (ICD-10 - N63.10) 09/27/2024 Unspecified lump in the left breast, unspecified quadrant (ICD-10 - N63.20) I have low suspicion for malignancy given the physical exam appearance of the nodules. However, mammogram and ultrasound are warranted, these will be ordered. I will review these personally 06/01/2024 Acute bronchitis, unspecified organism (ICD-10 - J20.9) 05/30/2024 Bronchitis (ICD-10 - J40) 05/28/2024 Bronchitis (ICD-10 - J40) Discussed the etiology and expected course of bronchitis. Discussed the rationale for antibiotics and steroid use and the importance of completing the prescription as prescribed. Discussed supportive care. Discussed the signs and symptoms of worsening infection/respir atory distress that may indicate need for reassessment in clinic/ED. 05/28/2024 Thrush (ICD-10 - B37.0) No improvement with nystatin, diflucan as above 09/27/2024 Essential hypertension (ICD-10 - I10) Blood pressure under good control, no changes in plan 10/27/2024 Actinic keratosis (ICD-10 - L57.0) persent on sun exposed areas no concerning features for malignancy, however lesions are scaly discussed using moisturizing spots and if no improvment on return visit will consider derm referral 07/28/2024 Dyskinesia (ICD-10 - G24.9) Overall its improved from a couple visits ago. She is off amitriptyline now and I think this has helped. I encouraged her to talk with her psychiatrist about further med adjustments that she might need. She is not sleeping well. She will discuss this with her psychiatrist. 11/09/2024 Pain in left leg (ICD-10 - M79.605) 12/13/2024 Peripheral edema (ICD-10 - R60.0) Really no evidence of edema today. Stay on low-dose triamterene. Follow-up in 3 months with labs. 03/21/2024 Abnormal involuntary movement (ICD-10 - R25.9) - on exam today patient with facial movements and leg movements, is very restless - patient states that children mentioned patient was sticking her tongue out more often - there is some concern for tardive dyskinesia - patient is on amitriptyline, desvenlafaxine, focalin, not on antipsychotic PLAN - patient has upcoming follow up with psychiatry and will bring up at this appointment 04/13/2024 Dizziness (ICD-10 - R42) has had extensive workup with additional pending 04/13/2024 Memory changes (ICD-10 - R41.3) has had extensive workup and additional pending her visit with [facility] 10/27/2024 Peripheral edema (ICD-10 - R60.0) tiral triamterene d/t low side effect profile and effect on uric acid levels check CMP in 3 weeks at follow-up appointment 09/27/2024 Hypothyroidism, unspecified type (ICD-10 - E03.9) Clinically euthyroid. 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 She reports that her neurologic symptoms seem to be exacerbated by situational stressors which are significant at work. Plan Of Treatment Pending Test Test Name Order Date X-Lipid Profile 09/25/2006 N-Monospot 09/25/2006 X ray : Chest 12/23/2007 N-EBV Titre 09/25/2006 Mammogram : Diagnostic 09/28/2024 Rapid Strep 11/04/2006 Rapid Strep 09/25/2006 Rapid Strep 03/25/2010 N-CMP 09/25/2006 N-HbA1C 09/25/2006 EKG : In House 09/06/2009 Holter Monitor, 24 Hour 09/20/2010 H-CBC with AUTO DIFF 11/24/2016 H-BMP 05/02/2010 H-CMP 11/24/2016 H-CMP 03/21/2011 H-HGBA1C 11/24/2016 H-URIC ACID 11/24/2016 C-CBC 12/29/2019 C-CBC 06/08/2018 C-CMP 06/08/2018 C-CMP 12/29/2019 C-MAGNESIUM 06/08/2018 C-URIC ACID 12/29/2019 C-TSH 12/29/2019 C-CARLOS A 01/02/2020 C-CARLOS A 05/09/2015 C-HEPATITIS PANEL 06/23/2018 C-LUIS MANUEL ARIAS PANEL 06/23/2018 C-CYTOMEGALOVIRUS AB IGG, IGM 06/23/2018 C-URINE CULTURE 07/18/2019 C-URINE CULTURE 06/03/2019 C-URINE CULTURE 03/16/2019 C-URINE CULTURE 02/04/2019 C-URINE CULTURE 03/23/2020 C-URINE CULTURE 04/28/2011 C-SJOGRENS ANTIBODIES 05/09/2015 C-CPK 06/08/2018 C-RA FACTOR 01/02/2020 Mammogram : unilateral 09/28/2024 VENIPUNCT, ROUTINE* 05/09/2015 C-parathyroid hormone 06/08/2018 CTA : Neck 04/02/2022 Ultrasound : Breast, bilateral if indica tariq 09/28/2024 M-Complete Blood Count Auto Diff 018 M-Miscellaneous Test 05/21/2018 M-Comprehensive Metabolic Panel 01/12/20 18 M-Hemoglobin A1C 01/11/2018 M-Magnesium 01/11/2018 M-Lipid Panel 01/11/2018 M-Free T4 (Free Thyroxine) 01/11/2018 M-Thyroid Stimulating Hormone 01/11/2018 M-HIV (1&2) Antibody Rapid 05/21/2018 M-Vitamin B12 01/11/2018 M-Vitamin D 25 Hydroxy 01/11/2018 CTA : Head 04/02/2022 MAGNESIUM 03/21/2024 THYROID PANEL (T3U/T4/FTI) 03/21/2024 THYROID STIMULATING HORMONE 03/21/2024 VITAMIN B12 03/21/2024 CAROTID DUPLEX 03/21/2024 Next Appt Details Provider Name:Librado Garcia Tevin, 03/21/2025 12:30:00 PM, [address] [place] [address], [phone], Insurance Providers Payer Name Payer Address Payer Phone Subscriber Number Group Number Insured Name Patient Relationship to Insured Coverage Start Date Coverage End Date [facility] [address] [place] [address] [phone] [id number] Dmitriy Mccrary Self - patient is the insured Medications Administered Medication Instructions Date of Administration Dosage Notes Ceftriaxone 500 12/18/2022 500 mg Ceftriaxone 500 12/19/2022 500 mg Ceftriaxone 500 12/20/2022 500 mg Ceftriaxone 500 12/21/2022 500 mg Ceftriaxone 500 12/22/2022 500 mg Dexamethasone 4mg Injection 06/13/2022 4 mg Dexamethasone 4mg Injection 09/25/2022 4 mg Dexamethasone 4mg Injection 06/02/2023 4 mg Dexamethasone 4mg Injection 05/28/2024 4 mg Kenalog 40mg 10/20/2017 40 mg Triamcinolone Acetonide 40mg Injection 04/20/2018 1 mL Triamcinolone Acetonide 40mg Injection 12/17/2018 1 mL Triamcinolone Acetonide 40mg Injection 12/29/2019 1 mL Kenalog 03/22/2013 1 Kenalog 05/03/2013 1 Kenalog 04/17/2014 1 mL Kenalog 03/29/2015 1 mL Kenalog 08/15/2015 1 Medical (General) History Medical History History ICD Code migraine headache type II diabetes fibromyalgia depression edema allergic rhinitis SICCA syndrome with recurrent thrush Hypothyroidism Gout Normal mammogram and breast US in 11/04 Surgical History Surgery Date(Month/Year) hysterectomy gallbladder 02/2018 dental inplants 05/2020 rt foot 01/06/2024 Hospitalization History Reason Date(Month/Year) Syncope 2015 rectal bleeding
--- OUTSIDE RECORDS SUMMARY | 2025-03-11 22:17 | XMS_ITS | Clinical Summary ---
Author Organization [facility] Address [address] [place] [address] Phone Care Team Providers Care Sales Force Administrator Name Role Phone Home Infusion DD, [facility] Unavailable Unavailab le Conditions or Problems Problem Name Problem Code Onset Date Status Entry Date Provider Comment Standard Description Annotate Fatigue 61725948 (SNOMED CT) Active 09/13 Silvio Thomas MD Fatigue Sicca syndrome 07953067 (SNOMED CT) Active 08/29 Silvio Thomas MD Sjogren's syndrome Acute cystitis w/o hematuria 96864213 (SNOMED CT) Active 08/16 Laura Che Urinary tract infectious disease Benign Essential Hypertension 35777908 (SNOMED CT) Active 08/16 Laura Che Benign hypertension Frequency of urination 757132975 (SNOMED CT) Active 08/16 Laura Che Increased frequency of urination Hypokalemia 70842964 (SNOMED CT) Active 08/16 Laura Che Hypokalemia Candidiasis, oral 61720876 (SNOMED CT) Active 08/16 Laura Che Candidiasis of mouth Medications Medication Instructions Start Date Stop Date Generic Name [facility] Provider PRISTIQ 50 MG [id number] take 1 tablet by mouth daily DESVENLAFAXINE SUCCINATE [id number] Carmen Fairbanks VALTREX 1 GM TABS take 1 tablet by mouth daily VALACYCLOVIR HCL 30525623043 Carmen Beverley AMITRIPTYLINE HCL 100 MG TABS take 1 tablet by mouth daily AMITRIPTYLINE HCL 21427286629 Carmen Fairbanks VIVELLE-DOT 0.0375 MG/24HR PTTW apply transdermally twice weekly ESTRADIOL 41103011587 Carmen Beverley TERAZOSIN HCL CAPSULE TERAZOSIN HCL CAPS [id number] Carmen Lowery PILOCARPINE HCL TABS PILOCARPINE HCL TABS [id number] Carmen Kentde SYNTHROID TABS LEVOTHYROXINE SODIUM TABS 70128167792 Carmen Fairbanks SPIRONOLACTONE 100 MG TABS take 1 tablet by mouth daily SPIRONOLACTONE 58534362158 Carmen Lowery FOCALIN XR 30 MG [id number] take 1 capsule by mouth daily DEXMETHYLPHENIDATE HCL 37637655788 Carmen Beverley Medications Administered No information available. Allergies, Adverse Reactions, Alerts Allergy Name Reaction Description Start Date Severity Statu s Provider ZITHROMAX Moderate Active Noelle M addox CEFDINIR Moderate Active Noelle M addox CLINDAMYCIN HCL Moderate Active Bet dayan Stoner DOXYCYCLINE HYCLATE Moderate Active Noelle Stoner TRAZODONE HCL Moderate Active Betha ny Stoner YEAST DRUGS Moderate Active Noelle Stoner CLARITHROMYCIN Moderate Active Samantha any Stoner SULFA ANTIBIOTICS Moderate Active B ethany Stoner Results Date Name Value Unit Range Flag Description External Other: Patient port al update - Email Push, [facility] ... PAT E-MAIL [email or web address] patient's e-mail address Lab Report: [place]ague T-Lymph-C D4, Immunoglobulins A/E/G/M, Serum, Sjogren' ... CARLOS A HOMO PAT 1:80 CARLOS A (ant inuclear antibody) pattern, homogeneous ANASCR IFA P A CARLOS A SCREEN , IFA SSB <0.2 0.0-0.9 Sjogren's syndrome-B, extractable nuclear Ab, serum SSA <0.2 0.0-0.9 Sjogren's syndrome-A, extractable nuclear Ab, serum IGE SER QN 75 [iU]/mL 0-100 immunoglob ulin E, serum, quantitative IGM SERUM 50 mg/dL 26-217 IgM, serum IGA SERUM 57 mg/dL 87-352 L IgA, serum IGG SERUM 780 mg/dL 700-1600 IgG, serum IMMATUREGRAN 0.0 X10E3/UL 0.0-0.1 Immature granulocytes [#/volume] in Blood IMM GRANU % 0 % Not Estab. Immature granulocytes/100 leukocytes in Blood BASO# 0.0 x10E3/uL 0.0-0.2 Basophils [#/volume] in Blood EOS ABSLT 0.2 X10E3/UL 10*3/uL 0.0-0.4 Eosinophils [#/volume] in Blood MONOSCT AUTO 0.6 X10E3/UL 10*3/uL 0.1-0.9 Monocytes [#/volume] in Blood by Automated count LYMPHCT AUTO 3.0 X10E3/UL 10*3/mm3 0.7-3.1 Lymphocytes [#/volume] in Blood by Automated count ABS NEUTROPH 5.1 X10E3/UL 10*3/uL 1.4-7.0 Neutrophils [#/volume] in Blood BASOPHIL % 0 % Not Estab. Basophils/100 leukocytes in Blood by Manual count % EOS AUTO 2 % Not Estab. Eosinophils/100 leukocytes in Blood by Automated count MONOCYTE % 6 % Not Estab. Monocytes/100 leukocytes in Blood by Automated count LYMPHS % 34 % Not Estab. Lymphocytes/100 leukocytes in Blood by Automated count PMN % 58 % Not Estab. Neutrophils/100 leukocytes in Blood by Automated count PLATELETS 317 X10E3/UL 10*3/mm3 150-379 Platelets [#/volume] in Blood by Automated count RDW 12.5 % 12.3-15.4 Erythrocyte distribution width [Ratio] by Automated count MCHC 36.0 G/DL 31.5-35.7 H MCHC [Mass/ volume] by Automated count MCH 30.8 pg 26.6-33.0 MCH [Entiti c mass] by Automated count MCV 86 fL 79-97 MCV [Entitic volume] by Automated count HCT 44.2 % 34.0-46.6 Hematocrit [Volume Fraction] of Blood by Automated count HGB 15.9 g/dL 11.1-15.9 Hemoglobin [Mass/volume] in Blood RBC 5.17 X10E6/UL 10*6/mm3 3.77-5.28 Erythrocytes [#/volume] in Blood by Automated count WBC 8.8 X10E3/UL 10*3/mm3 3.4-10.8 Leukocytes [#/volume] in Blood by Automated count CD4 % 55.6 % 30.8-58.5 T-helper ce lls (CD4) as percent of blood lymphocytes T-HELPER CD4 1668 /UL 10*3 359-1519 H T-help er cell (CD4) count Office Visit: rm2 MEDS REVIEW Done Documenta tion of current medications (procedure) SMOK STATUS Never smoker Tobacco smoking status Lab Report: T4, FREE ZZ-GE-unk 1.64 ng/dL 0.89-1.76 GE use on ly - for [employer] import when terms are not otherwise specified External Other: Patient port al update - [facility] ... PATPORTALPIN Active This talon l be used to establish a PIN number for patients to register in the Patient Portal. Plan of Care Type Date Detail Pending order Free T4 Pending order TSH Pending order CARLOS A Pending order Immunoglobulins Quant (IGG,IGA,IGE,IGM) Pending order CD4 Pending order Other Procedures Code Procedure Name Date Entry Date CPT-35482 Free T4 [id number] TSH CPT-86209 CARLOS A CPT-97313 Immunoglobulins Quant (IGG,IGA,IGE,IGM) 2 CPT-01428 CD4 CPT-LAB Other Vital Signs Date Name Value Unit Description BMI (Body Mass Index) 27.02 kg/m2 Bod y Mass Index (Ratio) Body Temperature 98.5 [degF] temperat ure E&M BP Diastolic 80 mm[Hg] blood pressu re, diastolic BP Systolic 126 mm[Hg] blood pressur e, systolic Heart Rate 82 /min pulse rate Height 61 [in_us] height E&M Respiratory Rate 14 /min respirat ory rate E&M Weight Measured 143 [lb_av] weight E& M Weight Measured 143 [lb_av] weight E& M Immunizations No information available. Advance Directives No information available.
[2025-03-11 22:21] VITALS: BP 197/108; PULSE 93; RESP 18; TEMP 36.9; O2SAT 97; BMI 29.6
--- NOTE | 2025-03-11 22:36 | HMH.EDGENADL ---
Discharge Plan Disposition Patient Disposition: Admitted Prescriptions Prescriptions: No Action febuxostat 40 mg tablet PO DAILY dexmethylphenidate 30 mg capsule,ER biphasic 50-50 PO valacyclovir 1 gram tablet PO DAILY triamterene 50 mg capsule PO DAILY Patient Comments: TAKE 1 CAPSULE BY MOUTH DAILY Airsupra 90-80 mcg/actuation HFA aerosol inhaler inhalation fluconazole 150 mg tablet 150 mg PO DAILY PRN (Reason: yeast) indomethacin 25 mg capsule 25 mg PO BID PRN (Reason: pain) 30 Days Qty: 60 3RF levothyroxine 75 MCG tablet 75 mcg PO DAILY terazosin 10 MG capsule 10 mg PO DAILY desvenlafaxine succinate [Pristiq] 50 MG tablet extended release 24 hr 50 mg PO DAILY pilocarpine HCl 7.5 mg tablet 7.5 mg PO BID Patient Comments: take 1 tablet by mouth twice a day Referrals Follow up/Referrals: Librado Abarca MD [Primary Care Provider, Internal Medicine] - See instructions Clinical Impressions Clinical Impression: Acute appendicitis Instructions Patient Instructions: DI for Acute Abdominal Pain Print Language Print Language: Kinyarwanda Discharge ED Provider: Jese Ch Adult HPI General Chief complaint: Abdominal Pain Stated complaint: Right side pain waist line area Time Seen by Provider: 03/11/25 22:22 Mode of Arrival: Ambulatory Source of Information: Patient Description of Symptoms (Recalled from ER Triage Doc. by RN): PT presents to the ED for evaluation of URQ pain. PT stated she had diarrhea and treated it with Imodium until the diarrhea subsided. PT now stated she is have small point lay ira BM. History of Present Illness HPI narrative: Dmitriy Mccrary is a 55y female with a past medical history of colonoscopy, , cholecystectomy, hysterectomy, gout, hypertension and chronically elevated uric acid who presents to the emergency department for complaints of right-sided abdominal pain and bloating. Patient states that she had a diarrheal illness for approximately 3 to 5 days starting on Thursday. She had been taking Imodium. She states that the diarrhea has since stopped, however today, she developed left-sided abdominal bloating that has since moved to the right side. She does describe right-sided abdominal plain into her flank as well. She denies any dysuria or hematuria. She reports nausea but no vomiting. She states that she has produce stool today, however they have been hard balls of stool without blood. She did report that she had an episode of chest pain today in her mid chest but denies any currently. She denies any cardiac history. Related Data Home Medications ?Medication ?Instructions ?Recorded ?Confirmed desvenlafaxine succinate 50 mg 50 mg PO DAILY depression/anxiety 02/16/18 01/10/25 tablet,extended release 24 hr (Pristiq) levothyroxine 75 mcg tablet 75 mcg PO DAILY hypothyroid 02/16/18 01/10/25 terazosin 10 mg capsule 10 mg PO DAILY side effects of 02/16/18 01/10/25 pristiq pilocarpine HCl 7.5 mg tablet 7.5 mg PO BID sjogrens syndrome 05/24/20 01/10/25 febuxostat 40 mg tablet mg PO DAILY 07/28/24 01/10/25 albuterol 90 mcg-budesonide 80 inhalation 01/10/25 01/10/25 mcg/actuation HFA aerosol inhaler (Airsupra) dexmethylphenidate 30 mg mg PO 01/10/25 01/10/25 capsule,extended release [id number] fluconazole 150 mg tablet 150 mg PO DAILY PRN yeast 01/10/25 triamterene 50 mg capsule mg PO DAILY 01/10/25 01/10/25 valacyclovir 1 gram tablet mg PO DAILY 01/10/25 01/10/25 Previous Rx's ?Medication ?Instructions ?Recorded indomethacin 25 mg capsule 25 mg PO BID PRN pain 30 days #60 08/02/24 caps Allergies Allergy/AdvReac Type Severity Reaction Status Date / Time trazodone (TRAZODONE) Allergy Intermediate LOW BP Verified 03/11/25 22:45 doxycycline Allergy Mild Rash Verified 03/11/25 22:45 Sulfa (Sulfonamide Allergy Unknown Rash Verified 03/11/25 22:45 Antibiotics) (SULFA (SULFONAMIDE ANTIBIOTICS)) allopurinol Allergy Diarrhea Verified 03/11/25 22:45 colchicine Allergy Palpitation Verified 03/11/25 22:45 s clarithromycin (From Biaxin) AdvReac Other Verified 03/11/25 22:45 [facility] Disclaimer: The information contained in this section may have been updated after the patient was seen, as this information can be updated by other users. 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, bilateral Gout Surgical History Hx of colonoscopy Hx of section Hx of cholecystectomy H/O: hysterectomy total Family History Father Diabetes Type 1 Heart attack Gout Heart disease Had pacemaker, CHF Mother Gout Thyroid disorder Social History Smoking Status: Never smoker alcohol intake: never counseling provided: none substance use type: denies use current occupational status: employed Travel in the last 8 weeks?: None Have you lived/traveled outside US in past 30 days?: No Contact w/someone who lives/traveled outside US past 30 days?: No Exposure to someone with infectious disease in past 14 days?: No Do you have a fever (greater than 100.4 F or 38 C)?: No Have you tested positive for COVID-19?: No Exposed to someone with COVID-19 in past 14 days?: No Do you have a sore throat?: No Do you have a cough?: No Do you have any weakness?: No Do you have any diarrhea?: No Are you experiencing any unusual bleeding?: No Do you have any muscle aches/pain?: No Do you have any abdominal pain?: Yes Are you experiencing loss of taste or smell?: No Other Medical History Have you received the Flu Vaccine for this season: No Have you received the Pneumonia Vaccine: No ROS Obtained: Yes Systems reviewed as appropriate & no additional complaints except as documented Physical Exam General General appearance: alert Comment: appears uncomfortable Head Head exam: atraumatic Eye Eye exam: Present normal appearance ENT ENT exam: Present normal external ear exam Neck Neck exam: Present full ROM Chest Chest inspection: Present symmetric chest wall rise Respiratory Respiratory exam: Present normal lung sounds bilaterally; Absent respiratory distress, wheezes or stridor Cardiovascular Cardiovascular exam: Present regular rate and normal rhythm Abdominal Exam Abdominal exam: Present soft, distention and tenderness (RUQ and RLQ); Absent guarding or rigidity Extremities Exam Extremities exam: Present normal inspection Back Exam Back exam: Present normal inspection Neurological Exam Neurological exam: Present alert and oriented X3 Psychiatric Psychiatric exam: Present normal affect Skin Skin exam: Present warm and dry Medical Decision Making Medical Records Screening: Per USPSTF and CDC recommendations, given the prevalence of disease in our region, it is our hospital?s policy to screen for HIV and viral Hepatitis for all patients aged 18 and over and those with ongoing risk factors. Pj Inquiry Pt receiving controlled substance: No Vital Signs: 03/11/25 22:21 Temperature 98.4 F Temperature Source Oral Pulse Rate [Right] 93 H Respiratory Rate 18 Blood Pressure [Right Arm] 197/108 H Blood Pressure Mean [Right Arm] 137 02 Sat by Pulse Oximetry 97 Oxygen Delivery Method Room Air Lab Data Lab Results 03/11/25 22:19: WBC 13.4 H, RBC 5.01, Hgb 14.0, Hct 39.7, MCV 79.2 L, MCH 27.9, MCHC 35.3, RDW 12.9, Plt Count 345, MPV 9.6, Neut % (Auto) 74.9, Lymph % (Auto) 17.3, [place] % (Auto) 5.4, Eos % (Auto) 1.7, Baso % (Auto) 0.3, Neut # (Auto) 10.1 H, Lymph # (Auto) 2.3, [place] # (Auto) 0.7, Eos # (Auto) 0.2, Baso # (Auto) 0.0, Sodium 138, Potassium 3.4 L, Chloride 104, Carbon Dioxide 28, Anion Gap 9.4, BUN 10, Creatinine 0.80, Estimated Creat Clear 88, Estimated GFR 74, Est GFR ( Amer) 90, Glucose 158 H, Calcium 9.3, Total Bilirubin 0.5, AST 32, ALT 25, Alkaline Phosphatase 100, Troponin I < 0.01, Total Protein 7.2, Albumin 4.5, Globulin 2.7, Albumin/Globulin Ratio 1.7, Lipase 22 L, HCV Ab TYRELL w/Rflx PCR Qn Negative, HIV Ag/Ab Combo Qual Negative 03/11/25 23:53: Urine Color Yellow, Urine Appearance Clear, Urine pH 6.5, Ur Specific [place] 1.015, Urine Protein Negative, Urine Glucose (UA) Negative, Urine Ketones Negative, Urine Blood Negative, Urine Nitrate Negative, Urine Bilirubin Negative, Urine Urobilinogen 0.2, Ur Leukocyte Esterase Negative 03/11/25 22:19 03/11/25 22:19 Orders (Tests/Meds): ED MEDICATIONS Generic Name Dose Route Start Last Admin Trade Name Yusra PRN Reason Stop Dose Admin Hydromorphone HCl 1 mg 03/12/25 00:05 Hydromorphone 2mg/Ml Syringe IV 03/12/25 00:06 ONCE ONE Piperacillin Sod/Tazobactam 100 mls @ 200 mls/hr 03/12/25 00:15 Sod 4.5 gm/ Sodium Chloride IV 03/13/25 00:14 Q6H GRETCHEN Discontinued Medications Generic Name Dose Route Start Last Admin Trade Name Yusra PRN Reason Stop Dose Admin Iopamidol 75 ml 03/11/25 23:29 03/11/25 23:29 Iopamidol-370 (76%);100ml Bottle IV 03/11/25 23:30 75 ml ONCE ONE Administration Morphine Sulfate 4 mg 03/11/25 22:47 03/11/25 22:56 Morphine 4mg/Ml Syringe IV 03/11/25 22:48 4 mg ONCE ONE Administration Ondansetron HCl 4 mg 03/11/25 22:47 03/11/25 22:55 Ondansetron 4mg/2ml Vial IV 03/11/25 22:48 4 mg ONCE ONE Administration Sodium Chloride 10 ml 03/11/25 23:29 03/11/25 23:29 Sodium Chloride 0.9% 10ml Syr (Rad Only) IV 03/11/25 23:30 10 ml ONCE ONE Administration ORDERS Category Date Time Status CT abdomen pelvis w con Stat Cat Scan 03/11/25 22:47 Completed CXR --portable [XR chest portable] Stat Exams 03/11/25 22:47 Completed CBC w/Auto Diff [Complete Blood Count Auto Diff] Stat Lab 03/11/25 22:19 Completed CMP [Comprehensive Metabolic Panel] Stat Lab 03/11/25 22:19 Completed HIV Combo Stat Lab 03/11/25 22:19 Received Hepatitis C Ab Qual. W/ RFX Stat Lab 03/11/25 22:19 Received Lactic Acid Stat Lab 03/11/25 22:47 Ordered Lipase Stat Lab 03/11/25 22:19 Completed Troponin I Q3H Lab 03/12/25 02:00 Ordered Troponin I Q3H Lab 03/12/25 05:00 Ordered Troponin I Stat Lab 03/11/25 22:19 Completed UA [Urinalysis and Microscopic] Stat Lab 03/11/25 23:53 Results EKG Request [ECG Request] Stat Y 03/11/25 22:47 Ordered ECG Data Tracing #1: I reviewed this ECG and interpreted as documented below: Normal sinus rhythm. No ST elevation or depression. QTc normal at 360 Medical Decision Narrative: Dmitriy Mccrary is a 55y female with a past medical history of colonoscopy, , cholecystectomy, hysterectomy, gout, hypertension and chronically elevated uric acid who presents to the emergency department for complaints of right-sided abdominal pain and bloating. Patient states that she had a diarrheal illness for approximately 3 to 5 days starting on Thursday. She had been taking Imodium. She states that the diarrhea has since stopped, however today, she developed left-sided abdominal bloating that has since moved to the right side. She does describe right-sided abdominal plain into her flank as well. She denies any dysuria or hematuria. She reports nausea but no vomiting. She states that she has produce stool today, however they have been hard balls of stool without blood. She did report that she had an episode of chest pain today in her mid chest but denies any currently. She denies any cardiac history. On arrival, patient is hypertensive with blood pressure 197/108, heart rate 93 bpm, breathing comfortably on room air with oxygen saturation 97% SpO2. Afebrile. Physical exam, stated above, revealed an uncomfortable but nontoxic appearing female in no respiratory distress. Cardiopulmonary exam is unremarkable. Abdomen is somewhat distended, more on the right side than the left and she is tender in the right upper quadrant and right lower quadrant without guarding or rebound. Her abdomen is nonperitonitic. Differential diagnosis includes, but is not limited to: Bowel obstruction, constipation, ileus, acute pancreatitis, acute appendicitis, ACS, pericarditis, among others. The most morbid conditions were considered and workup was based on these. Workup in the emergency department included: Troponin, CBC with differential, CMP, lipase, EKG, chest x-ray, lactic acid, urinalysis, troponin, CT abdomen pelvis with IV contrast, patient was administered 4 mg of IV morphine, 4 mg of IV Zofran. Chest x-ray interpreted by me personally. No focal consolidation, no pneumothorax, no widened mediastinum, no enlargement of the cardiac silhouette. Unremarkable chest x-ray. See radiology report for details. Laboratory workup shows leukocytosis of 13.4 with no left shift. CMP shows mild hypokalemia of 3.4 but otherwise unremarkable nonactionable. No LORENZO. Glucose normal at 158. Liver enzymes and bilirubin within normal limits. Lipase normal at 22. CT imaging was interpreted by me personally and I received a call from [facility] and showed evidence of appendicitis without abscess or intra-abdominal fluid. Per radiology, appendix is inflamed and measures 15 mm in diameter with mild adjacent edema and trace fluid. No abscess or extraluminal free air. Given these findings, I discussed the patient's case with Dr. Blackman with general surgery who stated that he will likely perform surgery tomorrow and recommended admission overnight for IV antibiotics. Patient was started on IV Zosyn. I then discussed these findings with the patient and she was amenable to admission at this time. She did state that her pain is a little worse now even after the morphine. Will administer 1 mg of IV Dilaudid. I did discuss patient's case with the hospitalist for admission and he was agreeable to admit the patient for further management. Critical Care Critical Care Time Critical Care Time: No
--- NOTE | 2025-03-11 22:47 | CT_ITS ---
PROCEDURE INFORMATION: Exam: CT Abdomen And Pelvis With Contrast Exam date and time: 03/11/2025 11:30 PM Age: 55 years old Clinical indication: Bloating and other: R sided pain, n, bloating TECHNIQUE: Imaging protocol: Computed tomography of the abdomen and pelvis with contrast. Total images: 302 Radiation optimization: All CT scans at this facility use at least one of these dose optimization techniques: automated exposure control; mA and/or kV adjustment per patient size (includes targeted exams where dose is matched to clinical indication); or iterative reconstruction. Contrast material: ISOVUE; Contrast volume: 75 ml; Contrast route: IV; COMPARISON: CR XR CHEST 2V 01/05/2024 2:27 PM FINDINGS: Lungs: Lung bases are clear. Heart: Normal heart size. Liver: Slight decreased liver attenuation from phase of contrast versus steatosis. Otherwise, unremarkable liver. Gallbladder and biliary ducts: Status post cholecystectomy. No biliary ductal dilatation. Pancreas: Mild fatty interdigitation of the pancreas. No discrete mass or acute pancreatitis. Spleen: Calcified splenic granuloma. No splenomegaly. Adrenal glands: Normal. No mass. Kidneys and ureters: No hydronephrosis, nephrolithiasis, or renal mass. macrolobulated renal margins bilaterally. No ureteral stones. Stomach and bowel: Collapsed stomach. Unremarkable duodenum. No ileus or bowel obstruction. Unremarkable small bowel and terminal ileum. Unremarkable colon and rectum. Appendix: Acute appendicitis. The inflamed appendix measures 15 mm in diameter with mild adjacent edema and trace fluid. No abscess or extraluminal free air. Intraperitoneal space: No ascites. No free air. Vasculature: Nonaneurysmal abdominal aorta. Major abdominal vessels enhance appropriately. Lymph nodes: Unremarkable. No enlarged lymph nodes. Urinary bladder: Unremarkable as visualized. Reproductive: Status post hysterectomy. No pelvic mass. Small quantity free pelvic fluid. Bones/joints: Moderate degenerative disc disease L3-L4 and L4-L5. Scattered mild degenerative changes remainder of the thoracolumbar spine. Minor lumbar levocurvature. No acute osseous abnormality. Soft tissues: Tiny fat containing bilateral inguinal hernias. Tiny fat containing umbilical hernia. IMPRESSION: 1. Acute appendicitis. No abscess or extraluminal free air. 2. Additional chronic and incidental findings.
--- NOTE | 2025-03-11 22:47 | XR_ITS ---
PROCEDURE INFORMATION: Exam: XR Chest Exam date and time: 03/11/2025 11:33 PM Age: 55 years old Clinical indication: Chest wall pain; Additional info: Chest pain TECHNIQUE: Imaging protocol: Radiologic exam of the chest. Views: 1 view. Total images: 1 COMPARISON: CR XR CHEST 2V 01/05/2024 2:27 PM FINDINGS: Lungs: Unremarkable. No consolidation. No pulmonary vascular congestion or edema. Pleural spaces: Unremarkable. No pleural effusion. No pneumothorax. Heart/Mediastinum: Unremarkable. No cardiomegaly. No mediastinal widening or hilar enlargement. Bones/joints: Unremarkable. IMPRESSION: No radiographically acute cardiopulmonary process.
--- NOTE | 2025-03-11 22:47 | ECG_ITS ---
APPROVED REPORT Exam: Resting ECG HR:80 bpm ECG Measurements Heart Rate 80 AXES WV 165 P 48 QRSd 88 QRS 14 QT 324 T 60 QTc 360 Conclusion SINUS RHYTHM WITH OCCASIONAL VENTRICULAR PREMATURE COMPLEXES NONSPECIFIC T-WAVE ABNORMALITY BORDERLINE ECG UNCONFIRMED REPORT Electronically signed by : SHENG JUAN, 03/13/2025 05:06:12
[2025-03-11] MEDS: ONDANSETRON 4MG/2ML VIAL 4 MG IV (22:55)
[2025-03-11] MEDS: MORPHINE 4MG/ML SYRINGE 4 MG IV (22:56)
[2025-03-11 23:10] LABS: Albumin Level 4.5 g/dl (3.5-5.0); Chloride 104 mmol/L (98-107); Hematocrit 39.7 % (37.0-47.0); Hemoglobin 14.0 g/dL (12.2-16.2); Immature Granulocytes % 0.4 %; Mean Corpuscular HGB Conc 35.3 g/dL (31.8-35.4); Mean Corpuscular Hemoglobin 27.9 pg (27.0-31.2); Mean Corpuscular Volume 79.2 fl (81-99); Nucleated Red Blood Cells % 0 %; Platelet Count 345 K/mm3 (142-424); Potassium 3.4 mmoL/L (3.5-5.1); Red Blood Count 5.01 M/mm3 (4.20-5.40); Red Cell Distribution Width-SD 36.0 fL; Sodium 138 mmol/L (136-145); White Blood Count 13.4 K/mm3 (4.8-10.8)
[2025-03-11 23:12] LABS: Blood Urea Nitrogen 10 mg/dl (7-17); Creatinine Clearance Estimated 88 mL/min (50-200); Creatinine,Serum 0.80 mg/dl (0.52-1.04); Estimated Glomerular Filt Rate 74 ml/min (>60); GFR (African American) 90 ML/MIN (>60)
[2025-03-11 23:13] LABS: Alanine Aminotransferase 25 U/L (12-78); Albumin/Globulin Ratio 1.7 (1.1-1.8); Alkaline Phosphatase 100 U/L (38-126); Anion Gap 9.4 mEq/L (5-15); Aspartate Amino Transferase 32 U/L (14-36); Bilirubin,Total 0.5 mg/dl (0.2-1.3); Calcium 9.3 mg/dl (8.4-10.2); Carbon Dioxide 28 mmol/L (22.0-30.0); Globulin 2.7 g/dL (1.3-3.2); Glucose 158 mg/dl (74-100); Lipase 22 U/L (23-300); Total Protein,Serum 7.2 g/dl (6.3-8.2)
[2025-03-11] MEDS: IOPAMIDOL-370 (76%);100ML BOTTLE 75 ML IV (23:29)
[2025-03-11] MEDS: SODIUM CHLORIDE 0.9% 10ML SYR (RAD ONLY) 10 ML IV (23:29)
[2025-03-11 23:38] LABS: Troponin I < 0.01 ng/ml (0.00-0.034)
[2025-03-12] VITALS (10 sets, daily range): BP systolic 108–210; BP diastolic 51–114; PULSE 75–86; RESP 14–18; TEMP 36.6–43; O2SAT 94–99; BMI 29.9; BMI 29.7
[2025-03-12 00:02] LABS: Hepatitis C Ab Qual. W/ RFX NEGATIVE (Negative)
[2025-03-12 00:02] LABS: Microscopic, Urine URINE MICROSCOPIC (MICROSCOPIC)
[2025-03-12 00:03] LABS: Bilirubin,Urine Negative (Negative); Color,Urine YELLOW (Yellow); Glucose,Urine (UA) Negative (Negative); Ketones,Urine Negative (Negative); Leukocyte Esterase,Urine Negative (Negative); PH,Urine 6.5 (5.0-8.5); Protein,Urine Negative (Negative); Specific Gravity, Urine 1.015 (1.005-1.030); Urobilinogen,Urine 0.2 EU/dl (0.2)
[2025-03-12] MEDS: PIPERACILLIN/TAZO 4.5 GM in 0.9 % SODIUM CHLORIDE 100 ML IV ×2 (00:16→06:44)
[2025-03-12] MEDS: HYDROMORPHONE 2MG/ML SYRINGE 1 MG IV ×2 (00:22→06:44)
--- NOTE | 2025-03-12 00:23 | PC.NURSE ---
Apple Watch and Gold Braclet to
--- NOTE | 2025-03-12 00:29 | PC.NURSE ---
Report called to LOUISA Pickard on medsurg floor Ice Chips provided per provider.
--- NOTE | 2025-03-12 00:31 | P.HP_ITS ---
<Statement entered by Jared Burnette MD - 03/14/25 06:52> Personally evaluated patient and agree with plan of care as outlined by the RECRUITING COORDINATOR. History of Present Illness *Admission Date: 03/12/25 *Reason for visit:: Acute appendicitis *History of present illness: This 55-year-old female that is a non-smoker nondrinker has come to the emergency room to abdominal pain today.. On exam CT scan shows a appendicitis. ER provider has called Dr. Aponte who will see her in the morning.. Plan at this time is to admit patient to the floor n.p.o. except for few ice chips and probable appendectomy in the morning. Patient surgical history is that of cholecystectomy and hysterectomy including oophorectomy. Significant past medical history includes podiatry surgery on her feet and a history of gout recently stopping gout medicine approximately a month ago. Patient also noted a neurologic event she described as a stroke/TIA she quit working last March and has gained weight. Patient also noted that she has an albuterol inhaler and sometimes take that for asthma symptoms that she denies any symptoms at this time. Also noted for depression ADHD leg movement and dry mouth and hypothyroidism [facility] Disclaimer: The information contained in this section may have been updated after the patient was seen, as this information can be updated by other users. Medical History (Updated 03/12/25 @ 00:41 by Agus Gusman APRN) History of TIA (transient ischemic attack) Hypothyroidism Encounter for colonoscopy following colon polyp removal Acquired pes planus of both feet Acquired hallux valgus of both feet Brachymetatarsia of left foot Brachymetatarsia of right foot Osteoarthritis of feet, bilateral Gout Surgical History Hx of colonoscopy Hx of section Hx of cholecystectomy H/O: hysterectomy Family History Father Diabetes Type 1 Heart attack Gout Heart disease Had pacemaker, CHF Mother Gout Thyroid disorder Social History Smoking Status: Never smoker alcohol intake: never counseling provided: none substance use type: denies use current occupational status: employed Travel in the last 8 weeks?: None Have you lived/traveled outside US in past 30 days?: No Contact w/someone who lives/traveled outside US past 30 days?: No Exposure to someone with infectious disease in past 14 days?: No Do you have a fever (greater than 100.4 F or 38 C)?: No Have you tested positive for COVID-19?: No Exposed to someone with COVID-19 in past 14 days?: No Do you have a sore throat?: No Do you have a cough?: No Do you have any weakness?: No Do you have any diarrhea?: No Are you experiencing any unusual bleeding?: No Do you have any muscle aches/pain?: No Do you have any abdominal pain?: Yes Are you experiencing loss of taste or smell?: No Other Medical History Have you received the Flu Vaccine for this season: No Have you received the Pneumonia Vaccine: No Review of Systems Review of Systems Review of systems:: pertinent systems reviewed and negative unless documented below Review of systems (narrative): Noting patient has really constant movement of her limbs, as if nervous. Constitutional Constitutional: Reports weight gain Comments: Stop working last March after some form of CVA injury/TIA and has gained weight Eyes Eyes: Reports as per HPI ENT Ears, Nose, Mouth, and Throat: Reports as per HPI *Cardiovascular Cardiovascular: Reports as per HPI *Respiratory Respiratory: Reports as per HPI Comments: History of asthma without any symptoms now *Gastrointestinal Gastrointestinal: Reports as per HPI and Reports abdominal pain *Genitourinary Genitourinary: Reports as per HPI *Musculoskeletal Musculoskeletal: Reports as per HPI Integumentary/Breasts Skin/Breast: Reports as per HPI *Neurologic Neurologic: Reports as per HPI Psychiatric Psychiatric: Reports as per HPI Comments: History of depression anxiety ADHD Hematologic/Lymphatic Hematologic/Lymphatic: Reports as per HPI Allergic/Immunologic Allergic/Immunologic: Reports as per HPI Meds Home Medications and Allergies Home Medications ?Medication ?Instructions ?Recorded ?Confirmed ?Type desvenlafaxine succinate 50 mg 50 mg PO DAILY depressi on/anxiety 02/16/18 01/10/25 History tablet,extended release 24 hr (Pristiq) levothyroxine 75 mcg tablet 75 mcg PO DAILY hypothyroi d 02/16/18 01/10/25 History terazosin 10 mg capsule 10 mg PO DAILY side effects of 02/16/18 01/10/25 History pristiq pilocarpine HCl 7.5 mg tablet 7.5 mg PO BID sjogrens s yndrome 05/24/20 01/10/25 History febuxostat 40 mg tablet mg PO DAILY 07/28/24 5 History indomethacin 25 mg capsule 25 mg PO BID PRN pain 30 da ys #60 08/02/24 01/10/25 Rx caps albuterol 90 mcg-budesonide 80 inhalation 01/10/2508/06 History mcg/actuation HFA aerosol inhaler (Airsupra) dexmethylphenidate 30 mg mg PO 01/10/25 01/10/25 Hist ory capsule,extended release [id number] fluconazole 150 mg tablet 150 mg PO DAILY PRN yeast History triamterene 50 mg capsule mg PO DAILY 01/10/25 5 History valacyclovir 1 gram tablet mg PO DAILY 01/10/25 History New Prescriptions to Start Prescriptions: Allergies Allergy/AdvReac Type Severity Reaction Status Date / Time trazodone (TRAZODONE) Allergy Intermediate LOW BP Verified 03/11/25 22:45 doxycycline Allergy Mild Rash Verified 03/11/25 22:45 Sulfa (Sulfonamide Allergy Unknown Rash Verified 03/11/25 22:45 Antibiotics) (SULFA (SULFONAMIDE ANTIBIOTICS)) allopurinol Allergy Diarrhea Verified 03/11/25 22:45 colchicine Allergy Palpitation Verified 03/11/25 22:45 s clarithromycin (From Biaxin) AdvReac Other Verified 03/11/25 22:45 Exam Data for Last 24 hours Vital signs and Labs for Last 24 Hours: Temp Pulse Resp BP Pulse Ox O2 Del Method 98.4 F 93 H 18 197/108 H 97 Room Air 03/11/25 22:21 03/11/25 22:21 03/11/25 22:21 03/11/25 22:21 03/11/25 22:21 03/11/25 22:21 Laboratory Results - last 24 hr 03/11/25 22:19: WBC 13.4 H, RBC 5.01, Hgb 14.0, Hct 39.7, MCV 79.2 L, MCH 27.9, MCHC 35.3, RDW 12.9, Plt Count 345, MPV 9.6, Neut % (Auto) 74.9, Lymph % (Auto) 17.3, [place] % (Auto) 5.4, Eos % (Auto) 1.7, Baso % (Auto) 0.3, Neut # (Auto) 10.1 H, Lymph # (Auto) 2.3, [place] # (Auto) 0.7, Eos # (Auto) 0.2, Baso # (Auto) 0.0, Sodium 138, Potassium 3.4 L, Chloride 104, Carbon Dioxide 28, Anion Gap 9.4, BUN 10, Creatinine 0.80, Estimated Creat Clear 88, Estimated GFR 74, Est GFR ( Amer) 90, Glucose 158 H, Calcium 9.3, Total Bilirubin 0.5, AST 32, ALT 25, Alkaline Phosphatase 100, Troponin I < 0.01, Total Protein 7.2, Albumin 4.5, Globulin 2.7, Albumin/Globulin Ratio 1.7, Lipase 22 L, HCV Ab TYRELL w/Rflx PCR Qn Negative, HIV Ag/Ab Combo Qual Negative 03/11/25 23:53: Urine Color Yellow, Urine Appearance Clear, Urine pH 6.5, Ur Specific [place] 1.015, Urine Protein Negative, Urine Glucose (UA) Negative, Urine Ketones Negative, Urine Blood Negative, Urine Nitrate Negative, Urine Bilirubin Negative, Urine Urobilinogen 0.2, Ur Leukocyte Esterase Negative I & O for Last 24 hours: Intake & Output 03/09/25 03/10/25 03/11/25 03/12/25 05:59 05:59 05:59 05:59 Weight 157 lb Radiology Reports for the Last 24 Hours: Lungs: Lung bases are clear. Heart: Normal heart size. Liver: Slight decreased liver attenuation from phase of contrast versus steatosis. Otherwise, unremarkable liver. Gallbladder and biliary ducts: Status post cholecystectomy. No biliary ductal dilatation. Pancreas: Mild fatty interdigitation of the pancreas. No discrete mass or acute pancreatitis. Spleen: Calcified splenic granuloma. No splenomegaly. Adrenal glands: Normal. No mass. Kidneys and ureters: No hydronephrosis, nephrolithiasis, or renal mass. macrolobulated renal margins bilaterally. No ureteral stones. Stomach and bowel: Collapsed stomach. Unremarkable duodenum. No ileus or bowel obstruction. Unremarkable small bowel and terminal ileum. Unremarkable colon and rectum. Appendix: Acute appendicitis. The inflamed appendix measures 15 mm in diameter with mild adjacent edema and trace fluid. No abscess or extraluminal free air. Intraperitoneal space: No ascites. No free air. Vasculature: Nonaneurysmal abdominal aorta. Major abdominal vessels enhance appropriately. Lymph nodes: Unremarkable. No enlarged lymph nodes. Urinary bladder: Unremarkable as visualized. Reproductive: Status post hysterectomy. No pelvic mass. Small quantity free pelvic fluid. Bones/joints: Moderate degenerative disc disease L3-L4 and L4-L5. Scattered mild degenerative changes remainder of the thoracolumbar spine. Minor lumbar levocurvature. No acute osseous abnormality. Soft tissues: Tiny fat containing bilateral inguinal hernias. Tiny fat containing umbilical hernia. IMPRESSION: 1. Acute appendicitis. No abscess or extraluminal free air. 2. Additional chronic and incidental findings. -- Constitutional Constitutional: no acute distress, obese and cooperative Comments: Not agitated but has constant movement of her limbs as if nervous or is just a chronic behavior, is in room during the exam had nothing to add to her history or symptom *Routine HEENT Exam Head: Present normocephalic and atraumatic Eye: Present EOMI and PERRL ENT: Present mucous membranes moist *Routine Neck Exam Neck: Present supple and full ROM *Routine Respiratory Exam Respiratory: Present CTA bilaterally, normal respiratory effort, able to speak in complete sentences and symmetric chest movement Comments: Lungs were completely clear has history of asthma but no wheezing was detected *Routine Cardiovascular Exam Cardiovascular: Present RRR, Normal S1 and Normal S2 *Routine Abdominal Exam Abdominal: Present soft and normoactive bowel sounds Comments: Normal bowel sounds, but did not press upon the patient's abdomen as CT scan has verified that there appears to be an appendicitis and patient is able to state to me that it does hurt when she is pressed upon *Routine Rectal Exam Rectal:: deferred *Routine Genitalia Exam Genitalia:: deferred *Routine Extremities Exam Extremities: Present full ROM, pulses intact and normal capillary refill *Routine Skin Exam Skin: Present intact, warm and normal turgor *Routine Neurological Exam Neurological: Present alert, oriented X3, CN II-XII intact, moving all extremities, vision grossly intact, hearing grossly intact and normal speech Routine Psychiatric Exam Psychiatric: Present normal affect, normal thought process, cooperative, good insight and good judgment H&P: Result Impressions 1. Acute appendicitis 2. Elevated blood sugar Imaging and Cardiology CT scan - abdomen: Status: image reviewed by me Additional comments: Lungs: Lung bases are clear. Heart: Normal heart size. Liver: Slight decreased liver attenuation from phase of contrast versus steatosis. Otherwise, unremarkable liver. Gallbladder and biliary ducts: Status post cholecystectomy. No biliary ductal dilatation. Pancreas: Mild fatty interdigitation of the pancreas. No discrete mass or acute pancreatitis. Spleen: Calcified splenic granuloma. No splenomegaly. Adrenal glands: Normal. No mass. Kidneys and ureters: No hydronephrosis, nephrolithiasis, or renal mass. macrolobulated renal margins bilaterally. No ureteral stones. Stomach and bowel: Collapsed stomach. Unremarkable duodenum. No ileus or bowel obstruction. Unremarkable small bowel and terminal ileum. Unremarkable colon and rectum. Appendix: Acute appendicitis. The inflamed appendix measures 15 mm in diameter with mild adjacent edema and trace fluid. No abscess or extraluminal free air. Intraperitoneal space: No ascites. No free air. Vasculature: Nonaneurysmal abdominal aorta. Major abdominal vessels enhance appropriately. Lymph nodes: Unremarkable. No enlarged lymph nodes. Urinary bladder: Unremarkable as visualized. Reproductive: Status post hysterectomy. No pelvic mass. Small quantity free pelvic fluid. Bones/joints: Moderate degenerative disc disease L3-L4 and L4-L5. Scattered mild degenerative changes remainder of the thoracolumbar spine. Minor lumbar levocurvature. No acute osseous abnormality. Soft tissues: Tiny fat containing bilateral inguinal hernias. Tiny fat containing umbilical hernia. IMPRESSION: 1. Acute appendicitis. No abscess or extraluminal free air. 2. Additional chronic and incidental findings. -- Assessment and Plan *Assessment and plan (1) Acute appendicitis: Status: Acute Qualifiers: Acute appendicitis type: with localized peritonitis Appendicitis gangrene presence: unspecified whether gangrene present Appendicitis perforation presence: unspecified whether perforation present Appendicitis abscess presence: unspecified whether abscess present Qualified Code(s): K35.30 - Acute appendicitis with localized peritonitis, without perforation or gangrene Category: Medical Code(s): K35.80 - Unspecified acute appendicitis (2) Hyperglycemia: Status: Acute Category: Medical Code(s): R73.9 - Hyperglycemia, unspecified (3) Hypothyroidism: Status: Acute Qualifiers: Hypothyroidism type: unspecified Qualified Code(s): E03.9 - Hypothyroidism, unspecified Category: Medical Code(s): E03.9 - Hypothyroidism, unspecified Plan 1. Patient will be admitted to the floor. Patient is receiving Zosyn at this time. Patient will be kept n.p.o.. Dr. Aponte has been notified by the ER provider consult has been placed expecting surgical intervention in the a.m.. Patient will be n.p.o. except for a few ice chips to keep her mouth moist 2. History of hyperglycemia. Patient states she is not diabetic hemoglobin A1c added to labs to find out if this will be something that needs to be evaluated and treated.
--- NOTE | 2025-03-12 00:43 | PC.NURSE ---
Arrived to floor @ 0040 via wheelchair
[2025-03-12] MEDS: POTASSIUM CHLORIDE 20MEQ TAB 40 MEQ PO (00:48)
[2025-03-12] MEDS: FAMOTIDINE 20MG/2ML VIAL 20 MG IV ×2 (00:48→11:12)
[2025-03-12] MEDS: LACTATED RINGERS 1000ML 1,000 ML 75 ML IV (00:49)
[2025-03-12] MEDS: KETOROLAC 30MG/ML VIAL 15 MG IV (01:42)
[2025-03-12 06:42] LABS: Hematocrit 37.5 % (37.0-47.0); Hemoglobin 12.8 g/dL (12.2-16.2); Immature Granulocytes % 0.4 %; Mean Corpuscular HGB Conc 34.1 g/dL (31.8-35.4); Mean Corpuscular Hemoglobin 27.3 pg (27.0-31.2); Mean Corpuscular Volume 80.0 fl (81-99); Nucleated Red Blood Cells % 0 %; Platelet Count 288 K/mm3 (142-424); Red Blood Count 4.69 M/mm3 (4.20-5.40); Red Cell Distribution Width-SD 36.9 fL; White Blood Count 12.6 K/mm3 (4.8-10.8)
[2025-03-12] MEDS: ONDANSETRON 4MG/2ML VIAL 4 MG IV (06:44)
[2025-03-12 07:38] LABS: Anion Gap 12.4 mEq/L (5-15); Blood Urea Nitrogen 9 mg/dl (7-17); Calcium 9.1 mg/dl (8.4-10.2); Carbon Dioxide 30 mmol/L (22.0-30.0); Chloride 100 mmol/L (98-107); Creatinine Clearance Estimated 89 mL/min (50-200); Creatinine,Serum 0.80 mg/dl (0.52-1.04); Estimated Glomerular Filt Rate 74 ml/min (>60); GFR (African American) 90 ML/MIN (>60); Glucose 105 mg/dl (74-100); Potassium 3.4 mmoL/L (3.5-5.1); Sodium 139 mmol/L (136-145)
[2025-03-12 08:09] LABS: Thyroid Stimulating Hormone 1.04 uIU/mL (0.465-4.68)
--- NOTE | 2025-03-12 08:30 | P.CONS_ITS ---
History of Present Illness *Admission Date: 03/12/25 *Reason for visit:: Appendicitis *History of present illness: This is a 55-year-old female who presented to the emergency department with increasing abdominal pain. Radiographic evidence consistent with appendicitis noted per CT. Forwarded from admission H&P: This 55-year-old female that is a non-smoker nondrinker has come to the emergency room to abdominal pain today.. On exam CT scan shows a appendicitis. ER provider has called Dr. Aponte who will see her in the morning.. Plan at this time is to admit patient to the floor n.p.o. except for few ice chips and probable appendectomy in the morning. Patient surgical history is that of cholecystectomy and hysterectomy including oophorectomy. Significant past medical history includes podiatry surgery on her feet and a history of gout recently stopping gout medicine approximately a month ago. Patient also noted a neurologic event she described as a stroke/TIA she quit working last March and has gained weight. Patient also noted that she has an albuterol inhaler and sometimes take that for asthma symptoms that she denies any symptoms at this time. Also noted for depression ADHD leg movement and dry mouth and hypothyroidism [facility] Disclaimer: The information contained in this section may have been updated after the patient was seen, as this information can be updated by other users. 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, bilateral Gout Surgical History Hx of colonoscopy Hx of section Hx of cholecystectomy H/O: hysterectomy Family History Father Diabetes Type 1 Heart attack Gout Heart disease Had pacemaker, CHF Mother Gout Thyroid disorder Social History Smoking Status: Never smoker alcohol intake: never counseling provided: none substance use type: denies use current occupational status: employed Travel in the last 8 weeks?: None Have you lived/traveled outside US in past 30 days?: No Contact w/someone who lives/traveled outside US past 30 days?: No Exposure to someone with infectious disease in past 14 days?: No Do you have a fever (greater than 100.4 F or 38 C)?: No Have you tested positive for COVID-19?: No Exposed to someone with COVID-19 in past 14 days?: No Do you have a sore throat?: No Do you have a cough?: No Do you have any weakness?: No Do you have any diarrhea?: No Are you experiencing any unusual bleeding?: No Do you have any muscle aches/pain?: No Do you have any abdominal pain?: Yes Are you experiencing loss of taste or smell?: No Review of Systems Review of Systems Review of systems:: pertinent systems reviewed and negative unless documented below *Gastrointestinal Gastrointestinal: Reports as per HPI *Neurologic Neurologic: Reports as per HPI Meds Home Medications and Allergies Home Medications ?Medication ?Instructions ?Recorded ?Confirmed ?Type desvenlafaxine succinate 50 mg 50 mg PO DAILY depressi on/anxiety 02/16/18 03/12/25 History tablet,extended release 24 hr (Pristiq) levothyroxine 75 mcg tablet 75 mcg PO DAILY hypothyroi d 02/16/18 03/12/25 History terazosin 10 mg capsule 10 mg PO BID side effects of 02/16/18 03/12/25 History pristiq pilocarpine HCl 7.5 mg tablet 7.5 mg PO BID sjogrens s yndrome 05/24/20 03/12/25 History febuxostat 40 mg tablet 40 mg PO DAILY 07/28/2402/12 History indomethacin 25 mg capsule 25 mg PO BID PRN pain 30 da ys #60 08/02/24 03/12/25 Rx caps albuterol 90 mcg-budesonide 80 1 puff inhalation Q6 03/12/25 History mcg/actuation HFA aerosol inhaler (Airsupra) dexmethylphenidate 30 mg 30 mg PO DAILY 01/10/2502/12 History capsule,extended release -98 fluconazole 150 mg tablet 150 mg PO DAILY PRN yeast 03/12/25 History triamterene 50 mg capsule 50 mg PO DAILY 07/01/25 08/3 1/25 History valacyclovir 1 gram tablet 500 mg PO DAILY 01/10/25 History New Prescriptions to Start Prescriptions: Allergies Allergy/AdvReac Type Severity Reaction Status Date / Time trazodone (TRAZODONE) Allergy Intermediate LOW BP Verified 03/11/25 22:45 doxycycline Allergy Mild Rash Verified 03/11/25 22:45 Sulfa (Sulfonamide Allergy Unknown Rash Verified 03/11/25 22:45 Antibiotics) (SULFA (SULFONAMIDE ANTIBIOTICS)) allopurinol Allergy Diarrhea Verified 03/11/25 22:45 colchicine Allergy Palpitation Verified 03/11/25 22:45 s clarithromycin (From Biaxin) AdvReac Other Verified 03/11/25 22:45 Exam (Inpt) Vital signs and Labs for Last 24 Hours: Temp Pulse Resp BP Pulse Ox O2 Del Method 97.8 F 80 16 166/77 H 96 Room Air 03/12/25 04:00 03/12/25 04:00 03/12/25 04:00 03/12/25 04:00 03/12/25 04:00 03/12/25 06:55 Laboratory Results - last 24 hr 03/11/25 22:19: WBC 13.4 H, RBC 5.01, Hgb 14.0, Hct 39.7, MCV 79.2 L, MCH 27.9, MCHC 35.3, RDW 12.9, Plt Count 345, MPV 9.6, Neut % (Auto) 74.9, Lymph % (Auto) 17.3, [place] % (Auto) 5.4, Eos % (Auto) 1.7, Baso % (Auto) 0.3, Neut # (Auto) 10.1 H, Lymph # (Auto) 2.3, [place] # (Auto) 0.7, Eos # (Auto) 0.2, Baso # (Auto) 0.0, Sodium 138, Potassium 3.4 L, Chloride 104, Carbon Dioxide 28, Anion Gap 9.4, BUN 10, Creatinine 0.80, Estimated Creat Clear 88, Estimated GFR 74, Est GFR ( Amer) 90, Glucose 158 H, Calcium 9.3, Total Bilirubin 0.5, AST 32, ALT 25, Alkaline Phosphatase 100, Troponin I < 0.01, Total Protein 7.2, Albumin 4.5, Globulin 2.7, Albumin/Globulin Ratio 1.7, Lipase 22 L, HCV Ab TYRELL w/Rflx PCR Qn Negative, HIV Ag/Ab Combo Qual Negative 03/11/25 23:53: Urine Color Yellow, Urine Appearance Clear, Urine pH 6.5, Ur Specific [place] 1.015, Urine Protein Negative, Urine Glucose (UA) Negative, Urine Ketones Negative, Urine Blood Negative, Urine Nitrate Negative, Urine Bilirubin Negative, Urine Urobilinogen 0.2, Ur Leukocyte Esterase Negative, Urine RBC None, Urine WBC None, Ur Squamous Epith Cells 3-5, Urine Bacteria None 03/12/25 05:55: WBC 12.6 H, RBC 4.69, Hgb 12.8, Hct 37.5, MCV 80.0 L, MCH 27.3, MCHC 34.1, RDW 13.0, Plt Count 288, MPV 9.0, Neut % (Auto) 71.2, Lymph % (Auto) 21.1, [place] % (Auto) 6.1, Eos % (Auto) 0.8, Baso % (Auto) 0.4, Neut # (Auto) 9.0 H, Lymph # (Auto) 2.7, [place] # (Auto) 0.8, Eos # (Auto) 0.1, Baso # (Auto) 0.1, Sodium 139, Potassium 3.4 L, Chloride 100, Carbon Dioxide 30, Anion Gap 12.4, BUN 9, Creatinine 0.80, Estimated Creat Clear 89, Estimated GFR 74, Est GFR ( Amer) 90, Glucose 105 H D, Calcium 9.1, TSH 1.04 I & O for Labs for Last 24 Hours: Intake & Output 03/09/25 03/10/25 03/11/25 03/12/25 11:59 11:59 11:59 11:59 Intake Total 100 / 100 Output Total 500 / 500 Balance -400 / -400 Weight 157 lb 6.4 oz Results Labs 03/12/25 05:55 03/12/25 05:55 Labs: Laboratory Results - last 24 hr 03/11/25 22:19: WBC 13.4 H, RBC 5.01, Hgb 14.0, Hct 39.7, MCV 79.2 L, MCH 27.9, MCHC 35.3, RDW 12.9, Plt Count 345, MPV 9.6, Neut % (Auto) 74.9, Lymph % (Auto) 17.3, [place] % (Auto) 5.4, Eos % (Auto) 1.7, Baso % (Auto) 0.3, Neut # (Auto) 10.1 H, Lymph # (Auto) 2.3, [place] # (Auto) 0.7, Eos # (Auto) 0.2, Baso # (Auto) 0.0, Sodium 138, Potassium 3.4 L, Chloride 104, Carbon Dioxide 28, Anion Gap 9.4, BUN 10, Creatinine 0.80, Estimated Creat Clear 88, Estimated GFR 74, Est GFR ( Amer) 90, Glucose 158 H, Calcium 9.3, Total Bilirubin 0.5, AST 32, ALT 25, Alkaline Phosphatase 100, Troponin I < 0.01, Total Protein 7.2, Albumin 4.5, Globulin 2.7, Albumin/Globulin Ratio 1.7, Lipase 22 L, HCV Ab TYRELL w/Rflx PCR Qn Negative, HIV Ag/Ab Combo Qual Negative 03/11/25 23:53: Urine Color Yellow, Urine Appearance Clear, Urine pH 6.5, Ur Specific [place] 1.015, Urine Protein Negative, Urine Glucose (UA) Negative, Urine Ketones Negative, Urine Blood Negative, Urine Nitrate Negative, Urine Bilirubin Negative, Urine Urobilinogen 0.2, Ur Leukocyte Esterase Negative, Urine RBC None, Urine WBC None, Ur Squamous Epith Cells 3-5, Urine Bacteria None 03/12/25 05:55: WBC 12.6 H, RBC 4.69, Hgb 12.8, Hct 37.5, MCV 80.0 L, MCH 27.3, MCHC 34.1, RDW 13.0, Plt Count 288, MPV 9.0, Neut % (Auto) 71.2, Lymph % (Auto) 21.1, [place] % (Auto) 6.1, Eos % (Auto) 0.8, Baso % (Auto) 0.4, Neut # (Auto) 9.0 H, Lymph # (Auto) 2.7, [place] # (Auto) 0.8, Eos # (Auto) 0.1, Baso # (Auto) 0.1, Sodium 139, Potassium 3.4 L, Chloride 100, Carbon Dioxide 30, Anion Gap 12.4, BUN 9, Creatinine 0.80, Estimated Creat Clear 89, Estimated GFR 74, Est GFR ( Amer) 90, Glucose 105 H D, Calcium 9.1, TSH 1.[address] scan - abdomen: report reviewed and image reviewed CT scan - pelvis: report reviewed and image reviewed Assessment and Plan *Assessment and plan (1) Acute appendicitis: Status: Acute Qualifiers: Acute appendicitis type: with localized peritonitis Appendicitis abscess presence: unspecified whether abscess present Appendicitis gangrene presence: unspecified whether gangrene present Appendicitis perforation presence: unspecified whether perforation present Qualified Code(s): K35.30 - Acute appendicitis with localized peritonitis, without perforation or gangrene Category: Medical Code(s): K35.80 - Unspecified acute appendicitis Plan: Continue overall management as per primary service. Laparoscopic appendectomy this morning I have discussed the risks and benefits including, but not limited to: Bleeding Infection Damage to surrounding tissue Inherent risks of sedation The patient agrees to proceed.
--- NOTE | 2025-03-12 08:36 | EXP.OP.NOTE ---
Date of procedure: 03/12/25 Pre-op Diagnosis:: Acute appendicitis Post-op Diagnosis:: Same Procedure performed:: Laparoscopic appendectomy Surgeon:: Chinedu Blackman MD PROCUREMENT ASSISTANT:: Nena Leggett Anesthesia: GETA Estimated blood loss (mL): 15 Operative findings:: Dense adhesions throughout mid lower abdominal wall secondary to prior surgery Severe enlargement/inflammation of the appendix Suppurative changes throughout appendix No definitive perforation Severe periappendiceal fat stranding with adhesions to adjacent right lateral sidewall, colon, and small bowel Operative note:: After informed consent was obtained the patient was taken to the operating room and placed in the supine position. General anesthesia was induced and her abdomen was prepped and draped in a sterile fashion. After infiltration with local anesthetic a supraumbilical incision was made. A Veress needle was placed in position. The abdomen was insufflated. A 12 mm trocar was placed in position. Dense adhesions throughout the mid/lower abdomen immediately encountered. After infiltration local anesthetic a 5 mm optical trocar was placed in the left upper quadrant to facilitate adhesiolysis. An additional 5 mm trocar placed in the left lower quadrant. Blunt dissection was utilized to free omental adhesions along the anterior abdominal wall. Under direct visualization an additional 5 mm trocar was placed in the suprapubic position. Evaluation of the right lower quadrant revealed profound inflammatory changes. The appendix was carefully elevated. Severe enlargement and adhesions to the surrounding tissue including right lateral sidewall, colon and small bowel were noted. A combination of blunt dissection and harmonic wander were utilized to transect the surrounding tissue. No definitive evidence of perforation or abscess collection noted. The mesoappendix was taken with harmonic wander. The base of the appendix was stapled with the Endopath 45 device. The appendix was placed in a retrieval bag and removed through the supraumbilical trocar site. The right lower quadrant was thoroughly irrigated. No active bleeding or sign of injury was noted. Pneumoperitoneum was released as the trocars were removed. Fascia at the infraumbilical trocar site was reapproximated utilizing 0 Ethibond. All wounds were irrigated and skin was closed with 4-0 Monocryl in an interrupted mattress fashion to facilitate hemostasis. Dressings were applied and the patient was transferred to recovery in stable condition after extubation. Condition: stable Disposition: PACU Specimens:: Appendix Complications:: No immediate
--- NOTE | 2025-03-12 08:58 | HMH.PHAINT1 ---
Pharmacy Intervention Comments: MEDICATION RECONCILIATION COMPLETED ON PATIENT USING EXTERNAL FILL HISTORY FROM PHARMACY. -SMOOTH HRENANDEZ, BELEND
[2025-03-12] MEDS: LIDOCAINE 1% 20ML MDV 20 ML (09:00)
[2025-03-12] MEDS: SODIUM CHLORIDE IRRIG SOLUTION 3,000 ML 100 ML IR (09:15)
--- NOTE | 2025-03-12 09:19 | SUR.PREOP ---
0825- AURE Gamboa and myself, AlemRN at bedside of patient in room 217. Reviewing procedure and consent with patient. Patient and educated on consented procedure and anesthesia. Patient encouraged to ask questions and states understanding. VSS at this time. 0831- Patient trasported on bed OR3. 0833- Arrive to OR. Patient transferred self to OR bed with no difficulties.
--- NOTE | 2025-03-12 09:24 | EXP.ANES.CKL ---
[facility] Disclaimer: The information contained in this section may have been updated after the patient was seen, as this information can be updated by other users. 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, bilateral Gout Surgical History Hx of colonoscopy Hx of section Hx of cholecystectomy H/O: hysterectomy Family History Father Diabetes Heart attack Gout Heart disease Mother Gout Thyroid disorder Social History Smoking Status: Never smoker alcohol intake: never counseling provided: none substance use type: denies use current occupational status: employed Travel in the last 8 weeks?: None Have you lived/traveled outside US in past 30 days?: No Contact w/someone who lives/traveled outside US past 30 days?: No Exposure to someone with infectious disease in past 14 days?: No Do you have a fever (greater than 100.4 F or 38 C)?: No Have you tested positive for COVID-19?: No Exposed to someone with COVID-19 in past 14 days?: No Do you have a sore throat?: No Do you have a cough?: No Do you have any weakness?: No Do you have any diarrhea?: No Are you experiencing any unusual bleeding?: No Do you have any muscle aches/pain?: No Do you have any abdominal pain?: Yes Are you experiencing loss of taste or smell?: No [facility] Anesthesia Checklist Patient Identification Patient Identification: Arm Band and Verbal (Name & ) Structural Data Admitted From: Inpatient Planned Operative Procedure/s: lap appy Consent for Planned Operative Procedure(s) Verified: Yes Verified Documents: Surgical Consent and History and Physical NPO Status Verified Time NPO: 00:00 Additional verifications Anesthesia Reactions: No Hx Blood Transfusions: No Blood Transfusion Reaction: No Airway Assessment Mallampati Score:: Class II C-Spine Mobility Assessed: Yes TMJ Mobility Assessed: Yes Dentition: Good Dentition Neurological Assessment Level of Consciousness: Awake, Alert and Appropriate Hx Seizures: No Numbness or tingling in extremities: No Anesthesia Plan Anesthesia Risk discussed: Yes Anesthesia Plan: Verified ASA Class: II Anesthesia Type: General
[2025-03-12] MEDS: METRONIDAZ/SOD CHL 500 MG/100 ML PIGGYBACK 100 MG IV (09:48)
--- NOTE | 2025-03-12 10:28 | P.PNANES_ITS ---
[facility] Anesthesia Record Part I Anesthesia Record I Intake, IV Amount: 1,000 Hydration: Adequate Estimated blood loss (mL): 10 Urine output (mL): 75 Blood Pressure: 117/55 SaO2: 97 Pulse Rate: 75 Airway Patency: Patent Respiratory Rate: 18 Temperature: 98.2 F Patient is:: Awake, Nasal O2 and Stable Stable to PACU at:: 10:34
[2025-03-12 10:47] LABS: Hemoglobin A1C 6.3 % (4.0-6.0)
--- NOTE | 2025-03-12 10:47 | SUR.PHASEI ---
1012- [place]rales d/c at this time. No complications noted.
--- NOTE | 2025-03-12 11:09 | SUR.PHASEI ---
1054- patient VSS. No complaints of pain. dressings clean, dry and intact. Detailed report called to LOUISA Spain on med/surg. 1100- patient transported via bed to room 217. Becca newton RN at bedside. patient in stable condition.
[2025-03-12 11:48] LABS: Microscopic, Urine URINE MICROSCOPIC (MICROSCOPIC)
[2025-03-12] MEDS: PIPERACILLIN/TAZO 3.375 GM in 0.9 % SODIUM CHLORIDE 50 ML IV (12:38)
--- NOTE | 2025-03-12 14:32 | EXP.DC.SUM ---
General Admission date:: 03/12/25 HPI HPI HPI: This is a 55-year-old female who presented to the emergency department with increasing abdominal pain. Radiographic evidence consistent with appendicitis noted per CT. Forwarded from admission H&P: This 55-year-old female that is a non-smoker nondrinker has come to the emergency room to abdominal pain today.. On exam CT scan shows a appendicitis. ER provider has called Dr. Aponte who will see her in the morning.. Plan at this time is to admit patient to the floor n.p.o. except for few ice chips and probable appendectomy in the morning. Patient surgical history is that of cholecystectomy and hysterectomy including oophorectomy. Significant past medical history includes podiatry surgery on her feet and a history of gout recently stopping gout medicine approximately a month ago. Patient also noted a neurologic event she described as a stroke/TIA she quit working last March and has gained weight. Patient also noted that she has an albuterol inhaler and sometimes take that for asthma symptoms that she denies any symptoms at this time. Also noted for depression ADHD leg movement and dry mouth and hypothyroidism Hospital Course Hospital Course Hospital Course: Dmitriy Mccrary is a 55-year-old female who presented with abdominal pain and was admitted for acute appendicitis. #Acute appendicitis ? General Surgery consulted, s/p laparoscopic appendectomy on 03/12/2025. Patient tolerated procedure well. ? Treated with IV Zosyn, transition to Augmentin as suppurative changes noted throughout appendix. ? Patient tolerating p.o. intake without issues. ? Discharged with Augmentin 500 mg 3 times daily for 5 more days and fluconazole for yeast infection, [place]. ? Will follow-up with general surgery within 1 week. #Hypertension ? Continue home triamterene. #ADHD # Anxiety/depression ? Continue home dexmethylphenidate, desvenlafaxine, terazosin. #Hypothyroidism ? Continue home levothyroxine 75 mg. Total time spent on discharge: 32 minutes on chart review, counseling, documentation, and direct care with patient. Exam Data for Last 24 hours Vital signs and Labs for Last 24 Hours: Temp Pulse Resp BP Pulse Ox O2 Del Method O2 Flow Rate 98.2 F 86 18 138/72 94 L Room Air 2 03/12/25 10:54 03/12/25 10:54 03/12/25 10:54 03/12/25 10:54 03/12/25 10:54 03/12/25 10:54 03/12/25 10:44 Laboratory Results - last 24 hr 03/11/25 22:19: WBC 13.4 H, RBC 5.01, Hgb 14.0, Hct 39.7, MCV 79.2 L, MCH 27.9, MCHC 35.3, RDW 12.9, Plt Count 345, MPV 9.6, Neut % (Auto) 74.9, Lymph % (Auto) 17.3, Dane % (Auto) 5.4, Eos % (Auto) 1.7, Baso % (Auto) 0.3, Neut # (Auto) 10.1 H, Lymph # (Auto) 2.3, Dane # (Auto) 0.7, Eos # (Auto) 0.2, Baso # (Auto) 0.0, Sodium 138, Potassium 3.4 L, Chloride 104, Carbon Dioxide 28, Anion Gap 9.4, BUN 10, Creatinine 0.80, Estimated Creat Clear 88, Estimated GFR 74, Est GFR ( Amer) 90, Glucose 158 H, Calcium 9.3, Total Bilirubin 0.5, AST 32, ALT 25, Alkaline Phosphatase 100, Troponin I < 0.01, Total Protein 7.2, Albumin 4.5, Globulin 2.7, Albumin/Globulin Ratio 1.7, Lipase 22 L, HCV Ab TYRELL w/Rflx PCR Qn Negative, HIV Ag/Ab Combo Qual Negative 03/11/25 23:53: Urine Color Yellow, Urine Appearance Clear, Urine pH 6.5, Ur Specific Kiln 1.015, Urine Protein Negative, Urine Glucose (UA) Negative, Urine Ketones Negative, Urine Blood Negative, Urine Nitrate Negative, Urine Bilirubin Negative, Urine Urobilinogen 0.2, Ur Leukocyte Esterase Negative, Urine RBC None, Urine WBC None, Ur Squamous Epith Cells 3-5, Urine Bacteria None 03/12/25 05:55: WBC 12.6 H, RBC 4.69, Hgb 12.8, Hct 37.5, MCV 80.0 L, MCH 27.3, MCHC 34.1, RDW 13.0, Plt Count 288, MPV 9.0, Neut % (Auto) 71.2, Lymph % (Auto) 21.1, Dane % (Auto) 6.1, Eos % (Auto) 0.8, Baso % (Auto) 0.4, Neut # (Auto) 9.0 H, Lymph # (Auto) 2.7, Dane # (Auto) 0.8, Eos # (Auto) 0.1, Baso # (Auto) 0.1, Sodium 139, Potassium 3.4 L, Chloride 100, Carbon Dioxide 30, Anion Gap 12.4, BUN 9, Creatinine 0.80, Estimated Creat Clear 89, Estimated GFR 74, Est GFR ( Amer) 90, Glucose 105 H D, Calcium 9.1, TSH 1.04 03/12/25 : Hemoglobin A1c 6.3 H I & O for Last 24 hours: Intake & Output 03/09/25 03/10/25 03/11/25 03/12/25 23:59 23:59 23:59 23:59 Intake Total 1690 / 1690 Output Total 500 / 500 Balance 1190 / 1190 Weight 71.214 kg 71.395 kg Constitutional Constitutional: no acute distress *Routine HEENT Exam Head: Present normocephalic Eye: Present EOMI and PERRL ENT: Present mucous membranes moist *Routine Neck Exam Neck: Present supple; Absent lymphadenopathy *Routine Respiratory Exam Respiratory: Present CTA bilaterally *Routine Cardiovascular Exam Cardiovascular: Present RRR *Routine Abdominal Exam Abdominal: Present soft and normoactive bowel sounds; Absent tenderness Comments: Incision sites clean dry and intact. *Routine Extremities Exam Extremities: Absent cyanosis, clubbing or edema *Routine Skin Exam Skin: Present warm; Absent rash *Routine Neurological Exam Neurological: Present alert and oriented X3 Results Data Completed and Pending Labs on day of discharge: Labs from last 24 hours 03/12/25 03/12/25 03/11/25 Unknown 05:55 23:53 WBC 12.6 H RBC 4.69 Hgb 12.8 Hct 37.5 MCV 80.0 L MCH 27.3 MCHC 34.1 RDW 13.0 Plt Count 288 MPV 9.0 Neut % (Auto) 71.2 Lymph % (Auto) 21.1 Dane % (Auto) 6.1 Eos % (Auto) 0.8 Baso % (Auto) 0.4 Neut # (Auto) 9.0 H Lymph # (Auto) 2.7 Dane # (Auto) 0.8 Eos # (Auto) 0.1 Baso # (Auto) 0.1 Sodium 139 Potassium 3.4 L Chloride 100 Carbon Dioxide 30 Anion Gap 12.4 BUN 9 Creatinine 0.80 Estimated Creat Clear 89 Estimated GFR 74 Est GFR ( Amer) 90 Glucose 105 H D Hemoglobin A1c 6.3 H Calcium 9.1 Total Bilirubin AST ALT Alkaline Phosphatase Troponin I Total Protein Albumin Globulin Albumin/Globulin Ratio Lipase TSH 1.04 Urine Color Yellow Urine Appearance Clear Urine pH 6.5 Ur Specific Kiln 1.015 Urine Protein Negative Urine Glucose (UA) Negative Urine Ketones Negative Urine Blood Negative Urine Nitrate Negative Urine Bilirubin Negative Urine Urobilinogen 0.2 Ur Leukocyte Esterase Negative Urine RBC None Urine WBC None Ur Squamous Epith Cells 3-5 Urine Bacteria None HCV Ab TYRELL w/Rflx PCR Qn HIV Ag/Ab Combo Qual 03/11/25 22:19 WBC 13.4 H RBC 5.01 Hgb 14.0 Hct 39.7 MCV 79.2 L MCH 27.9 MCHC 35.3 RDW 12.9 Plt Count 345 MPV 9.6 Neut % (Auto) 74.9 Lymph % (Auto) 17.3 Dane % (Auto) 5.4 Eos % (Auto) 1.7 Baso % (Auto) 0.3 Neut # (Auto) 10.1 H Lymph # (Auto) 2.3 Dane # (Auto) 0.7 Eos # (Auto) 0.2 Baso # (Auto) 0.0 Sodium 138 Potassium 3.4 L Chloride 104 Carbon Dioxide 28 Anion Gap 9.4 BUN 10 Creatinine 0.80 Estimated Creat Clear 88 Estimated GFR 74 Est GFR ( Amer) 90 Glucose 158 H Hemoglobin A1c Calcium 9.3 Total Bilirubin 0.5 AST 32 ALT 25 Alkaline Phosphatase 100 Troponin I < 0.01 Total Protein 7.2 Albumin 4.5 Globulin 2.7 Albumin/Globulin Ratio 1.7 Lipase 22 L TSH Urine Color Urine Appearance Urine pH Ur Specific Kiln Urine Protein Urine Glucose (UA) Urine Ketones Urine Blood Urine Nitrate Urine Bilirubin Urine Urobilinogen Ur Leukocyte Esterase Urine RBC Urine WBC Ur Squamous Epith Cells Urine Bacteria HCV Ab TYRELL w/Rflx PCR Qn Negative HIV Ag/Ab Combo Qual Negative DS: Diagnosis Discharge Diagnosis (1) Acute appendicitis: Status: Resolved Code(s): K35.80 - Unspecified acute appendicitis Qualifiers: Acute appendicitis type: with localized peritonitis Appendicitis abscess presence: unspecified whether abscess present Appendicitis gangrene presence: unspecified whether gangrene present Appendicitis perforation presence: unspecified whether perforation present Qualified Code(s): K35.30 - Acute appendicitis with localized peritonitis, without perforation or gangrene Meds Home Medications and Allergies Home Medications ?Medication ?Instructions ?Recorded ?Confirmed ?Type levothyroxine 75 mcg tablet 75 mcg PO DAILY 02/16/18 03/15/25 History terazosin 10 mg capsule 10 mg PO BID 02/16/18 03/15/25 History pilocarpine HCl 7.5 mg tablet 7.5 mg PO BID 05/24/20 03/15/25 History febuxostat 40 mg tablet 40 mg PO DAILY 07/28/24 03/15/25 History albuterol 90 mcg-budesonide 80 1 puff inhalation Q6 01/10/25 03/15/25 History mcg/actuation HFA aerosol inhaler (Airsupra) dexmethylphenidate 30 mg 30 mg PO DAILY 01/10/25 03/15/25 History capsule,extended release [id number] triamterene 50 mg capsule 50 mg PO DAILY 01/10/25 03/15/25 History amoxicillin 500 mg-potassium 1 tab PO TID #15 tabs 03/12/25 03/15/25 Rx clavulanate 125 mg tablet (Augmentin) desvenlafaxine succinate 100 mg 100 mg PO DAILY 03/12/25 03/15/25 History tablet,extended release 24 hr fluconazole 200 mg tablet 200 mg PO DAILY PRN Yeast 03/12/25 03/15/25 Rx infection #5 tabs hydrocodone 5 mg-acetaminophen 325 1 - 2 tab PO Q6H PRN pain #17 tabs 03/12/25 03/15/25 Rx mg tablet indomethacin 25 mg capsule 25 mg PO TIDP PRN Gout 03/12/25 03/15/25 History probenecid 500 mg tablet 500 mg PO BID 03/12/25 03/15/25 History valacyclovir 500 mg tablet 500 mg PO BID 03/12/25 03/15/25 History New Prescriptions to Start Prescriptions: amoxicillin-pot clavulanate [Augmentin] Chinedu Blackman fluconazole Jared Burnette hydrocodone-acetaminophen Jared Burnette Allergies Allergy/AdvReac Type Severity Reaction Status Date / Time trazodone (TRAZODONE) Allergy Intermediate LOW BP Verified 03/15/25 13:52 doxycycline Allergy Mild Rash Verified 03/15/25 13:52 Sulfa (Sulfonamide Allergy Unknown Rash Verified 03/15/25 13:52 Antibiotics) (SULFA (SULFONAMIDE ANTIBIOTICS)) allopurinol Allergy Diarrhea Verified 03/15/25 13:52 colchicine Allergy Palpitation Verified 03/15/25 13:52 s clarithromycin (From Biaxin) AdvReac Other Verified 03/15/25 13:52 Discharge Plan Disposition Patient Disposition: Home, Self-Care Condition: Fair Follow up Plan Follow up with: Chinedu Blackman MD [Staff Physician, General Surgery] - 03/15/25 Referral Note: please call for appointment Prescriptions/Medication Reconciliation: New amoxicillin-pot clavulanate [Augmentin] 500-125 mg tablet 1 tab PO TID Qty: 15 0RF hydrocodone-acetaminophen 5-325 mg tablet 1 - 2 tab PO Q6H PRN (Reason: pain) Qty: 17 0RF fluconazole 200 mg tablet 200 mg PO DAILY PRN (Reason: Yeast infection) Qty: 5 0RF Continued febuxostat 40 mg tablet 40 mg PO DAILY dexmethylphenidate 30 mg capsule,ER biphasic 50-50 30 mg PO DAILY triamterene 50 mg capsule 50 mg PO DAILY Patient Comments: TAKE 1 CAPSULE BY MOUTH DAILY Airsupra 90-80 mcg/actuation HFA aerosol inhaler 1 puff inhalation Q6 valacyclovir 500 mg tablet 500 mg PO BID Patient Comments: TAKE 1 TABLET BY MOUTH TWICE DAILY probenecid 500 mg tablet 500 mg PO BID Patient Comments: TAKE 1 TABLET BY MOUTH TWICE DAILY desvenlafaxine succinate 100 mg tablet extended release 24 hr 100 mg PO DAILY Patient Comments: TAKE 1 TABLET BY MOUTH EVERY DAY indomethacin 25 mg capsule 25 mg PO TIDP PRN (Reason: Gout) levothyroxine 75 MCG tablet 75 mcg PO DAILY terazosin 10 MG capsule 10 mg PO BID pilocarpine HCl 7.5 mg tablet 7.5 mg PO BID Patient Comments: take 1 tablet by mouth twice a day Problem Reconciliation Problems Reviewed?: Yes Patient Discharge Instructions ACTIVITY: Ambulate as tolerated and No heavy lifting DIET: advance to your usual diet Additional Instructions: Remove dressings and shower after 48 hours Patient Instructions: How to Care for a Surgical Wound, Appendicitis, Surgical Site Infection, How to Care for a Surgical Wound-Skin Glue, How to Care for a Surgical Wound-Stitches, Stop Light Infection Print Language: Albanian Providers Primary Care Provider: Librado Abarca Provider: Jared Burnette Attending Provider: Jared Burnette
[2025-03-12 14:54] LABS: Bilirubin,Urine Negative (Negative); Color,Urine YELLOW (Yellow); Glucose,Urine (UA) Negative (Negative); Ketones,Urine Negative (Negative); Leukocyte Esterase,Urine Negative (Negative); PH,Urine 6.0 (5.0-8.5); Protein,Urine Negative (Negative); Specific Gravity, Urine 1.020 (1.005-1.030); Urobilinogen,Urine 0.2 EU/dl (0.2)
[2025-03-12 14:57] LABS: Squamous Epithelial Cell,Urine Occasional #/hpf (0-5); WBC,Urine Occasional #/hpf (0-3)
--- NOTE | 2025-03-13 08:56 | P.PNANES_ITS ---
[facility] Anesthesia Record Part II Anesthesia Record Part II Discharge Time: 10:54 Destination: Medical Surgical Department PACU nurse assessment reviewed?: Yes Patient Condition:: Good Anesthesia Complications:: None Swallowing reflex intact?: Yes Airway Patency: Patent Cyanosis?: No Blood Pressure: 138/72 SaO2: 94 Respiratory Rate: 18 Pulse Rate: 86 Temperature: 98.2 F Mental Status: Alert & Oriented Pain level:: 0 Nausea and/or vomitting:: None Intake, IV Amount: 0 Hydration: Adequate
[2025-03-13 08:57] VITALS: BP 138/72; PULSE 86; RESP 18; TEMP 36.8; O2SAT 94
--- NOTE | 2025-03-14 10:06 | SW/DCPLANNER ---
Spoke with patient on the phone. Patient stated that she is doing good. Patient stated that she is aware of her upcoming appointment. Patient stated that she was able to get her new medicine picked up from [facility] pharmacy. Patient stated that she is having trouble going to sleep. I suggested that patient needs to call her PCP and see what he or she suggest her to take. Patient stated that she has no other concerns or questions at this time. Shey Mcqueen
== END 2025-03-12 16:05 | disposition home or self-care (01) ==
LOC: ER 03-12 00:10 → 2ND 03-12 00:18
PROVIDERS: Nurse Practitioner Family; Surgery; Admitting Provider Student in an Organized Health Care Education/Training Program; Emergency Provider Student in an Organized Health Care Education/Training Program; PCP Internal Medicine Adolescent Medicine; Visit Provider Student in an Organized Health Care Education/Training Program
PROC: 0DTJ4ZZ Resection of Appendix, Percutaneous Endoscopic Approach (ICD-10-PCS; CPT 44970; principal; 2025-03-12 08:30)
DX: K35.30 Acute appendicitis with localized peritonitis, without perforation or gangrene (principal); E03.9 Hypothyroidism, unspecified; M10.9 Gout, unspecified; F32.A Depression, unspecified; F90.9 Attention-deficit hyperactivity disorder, unspecified type; M19.072 Primary osteoarthritis, left ankle and foot; M19.071 Primary osteoarthritis, right ankle and foot; E66.9 Obesity, unspecified; J45.909 Unspecified asthma, uncomplicated; I10 Essential (primary) hypertension; R73.9 Hyperglycemia, unspecified; Z90.49 Acquired absence of other specified parts of digestive tract; Z90.710 Acquired absence of both cervix and uterus; Z88.8 Allergy status to other drugs, medicaments and biological substances; Z88.1 Allergy status to other antibiotic agents; Z88.2 Allergy status to sulfonamides; Z86.73 Personal history of transient ischemic attack (TIA), and cerebral infarction without residual deficits; Z68.29 Body mass index [BMI] 29.0-29.9, adult; Z79.1 Long term (current) use of non-steroidal anti-inflammatories (NSAID); Z79.890 Hormone replacement therapy; Z79.899 Other long term (current) drug therapy
CPT/HCPCS: 44970; 36415; 51702; 71045; 74177; 80048; 80053; 81001; 83036; 83690; 84443; 84484; 85025; 86803; 87389; 93005; 96361; 96365; 96375; 96376; 99284; G0378; J0696; J1100; J1171; J1200; J1836; J1885; J2003; J2250; J2270; J2405; J2543; J2704; J3010; J7120; Q9967

== ENCOUNTER 2025-03-16 17:53 | Outpatient (CLI) | payer BC, SELFPAY ==
--- OUTSIDE RECORDS SUMMARY | 2024-11-03 11:15 | XMS_ITS ---
Author Organization [facility] Address [address] [place] [address] Care Team Providers Care Red Lead Burner Name Role Phone Librado Abarca Primary Care Provider REASON FOR VISIT gout Encounters Encounter Location Date Provider Diagnosis [facility] [address] [address] 11/03/2024 Librado Abarca Plan Of Treatment Next Appt Details Provider Name:Librado Abarca, 03/21/2025 12:30:00 PM, [address] [place] [address], [phone], Progress Notes * Dmitriy MCCRARY MDOB:03/1970 (55 yo F)Acc No.[id number]:11/03/2024 Progress Notes Patient: Dmitriy VERDE Provider: Ricardo Abarca MD :1970 A ge:54 Y S ex:Female Date:11/03/2024 Address:[address] [place], [place] [address], [id number] Subjective: * Chief Complaints: * 1 . Gout. * Medical History: Objective: * Vitals: Assessment: Plan: * Treatment: * * Electronic signature of John Abarca MD FAAP on 03/16/2025 at 05:57 PM EDT Sign off status: Pending * Provider: Ricardo Abarca MD Date: 0 11/03/2024 Generated for Cami weaver/Maldonado/Saritha on: 0 03/16/2025 05:57 PM EDT
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
--- OUTSIDE RECORDS SUMMARY | 2025-02-09 09:45 | XMS_ITS | Encounter Summary ---
Author Organization [facility] Address [address] [place] [address] Care Team Providers Care Commercial Photographer Name Role Phone Librado Abarca MD Primary Care Provider [phone] Reason for Visit * Reason Comments Osteoarthritis Follow up Fibromyalgia Follow up Gout Follow up Encounter Details Date Type Department Care Team (Latest Contact Info) Description 02/09/2025 9:45 AM EDT Office Visit [facility] [address] [phone] Obdulio De Paz DO [address] [id number] Idiopathic chronic gout with tophus, unspecified site (Primary Dx); Fibromyalgia; Primary osteoarthritis involving multiple joints Social History Tobacco Use Types Packs/Day Years Used Date Smoking Tobacco: Never Smokeless Tobacco: Never Tobacco Cessation:Counseling Given: Not Answered Alcohol Use Standard Drinks/Week Comments No 0 [...] Sign Reading Time Taken Comments Blood Pressure 154/100 02/09/2025 10:20 AM EDT Pulse 78 02/09/2025 10:20 AM EDT Temperature 36.4 C (97.5 F) 02/09/2025 10:20 AM EDT Respiratory Rate - - Oxygen Saturation - - Inhaled Oxygen Concentration - - Weight 69.5 kg (153 lb 4.8 oz) 02/09/2025 10:20 AM EDT Height 154.9 cm (5' 0.98 ) 02/09/2025 10:20 AM E DT Body Mass Index 28.98 02/09/2025 10:20 AM EDT documented in this encounter Patient Instructions * Attachments The following attachments cannot be sent through Care Everywhere. * Myofascial Pain Syndrome and Fibromyalgia (Surinamese) documented in this encounter Progress Notes * Obdulio De Paz DO - 02/09/2025 9:45 AM EDTAssociated Problem(s): Idiopathic chronic gout with tophus Medication/treatment/interventions tried include: Tylenol, Colchicine (Shortness of breath), allopurinol (GI intolerance), She is sulfa allergic (Cannot take sulfasalazine, she has seen podiatry, indomethacin, gabapentin, Desvenlafaxine, amitriptyline, she has seen neurology, She saw Hernán Reagan MD in 2005 - 2009 (rheumatology), Cymbalta, ibuprofen, chlorzoxazone, Topamax, Skelaxin, she had foot surgery, She has seen [facility], Febuxostat (side effects) She has tried taking oral NSAIDS like ibuprofen and indomethacin She reports that she is allergic/intolerant of colchicine (shortness of breath) She lists that she was/is allergic/intolerant of allopurinol (GI Intolerance) I would recommend if possible to limit/avoid diuretic exposure. Diuretics increase the serum uric acid level and can exacerbate gout. If needed can use steroids to treat flare ups PRN. We had prescribed her Febuxostat. She reports she stopped it because it raised her blood pressure and caused flank pain. She also thinks it made her have chills/sweats. Today I will try probenecid Risks and benefits reviewed. She reports she had labs done at her PCP office recently. * Obdulio De Paz DO - 02/09/2025 9:45 AM EDTAssociated Problem(s): Fibromyalgia 1. H & P consistent with this diagnosis. 2. Encourage aerobic activity and sleep hygiene. 3. If she has not had a sleep study/consultation consider getting this done. 4. Tylenol PRN is ok as directed 5. She has tried oral NSAIDs like ibuprofen and indomethacin 6. She has tried taking muscle relaxer's like Skelaxin and chlorzoxazone 7. She has taken Cymbalta, 8. She has taken amitriptyline 9. She saw Hernán Reagan MD. He was a varnish inspector 10. She has taken gabapentin 11. She has taken Desvenlafaxine. 12. She has seen neurology 13. She has tried taking Topamax. * Obdulio De Paz DO - 02/09/2025 9:45 AM EDTAssociated Problem(s): Primary osteoarthritis involving multiple joints Tylenol PRN is ok as directed She has taken oral NSAIDs like ibuprofen She has seen podiatry She has taken muscle relaxer's PRN. She has had foot surger * Obdulio De Paz DO - 02/09/2025 9:45 AM EDT Images from the original note were not included. Office Follow Up Date: 02/09/2025 Patient Name: Dmitriy Mccrary Date of : 1970 Chief Complaint Patient presents with Osteoarthritis Follow up Fibromyalgia Follow up Gout Follow up History of Present Illness: Dmitriy Mccrary is a 54 y.o. female who is here today for follow up. We had prescribed her Febuxostat. She reports she stopped it because it raised her blood pressure and caused flank pain. She also thinks it made her have chills/sweats. Today she rates her pain as 2/10 in severity. She has 1 hour/day of morning stiffness. She has backpain. No neck issues. No muscle pain or weakness. No swelling today. No red or hot joints. No rash. No hair loss. No abnormal bruising/bleeding. She has swollen glands. She does not sleep well. She has TICS. She has chest pain/tightness. No shortness of breath. Her legs swell. No sicca symptoms. She has fever. She is gaining weight. She has both constipation and diarrhea. She has breast pain. She has flank pain. Subjective Review of Systems Constitutional: Positive for chills, fever and unexpected weight gain. HENT: Positive for tinnitus. Eyes: Positive for blurred vision. Respiratory: Positive for chest tightness and wheezing. Cardiovascular: Positive for chest pain and leg swelling. Gastrointestinal: Positive for constipation, diarrhea and nausea. Endocrine: Negative. Genitourinary: Positive for breast pain and flank pain. Musculoskeletal: Positive for arthralgias and back pain. Skin: Negative. Allergic/Immunologic: Positive for environmental allergies. Neurological: Negative. Hematological: Negative. Psychiatric/Behavioral: Positive for sleep disturbance and stress. All other systems reviewed and are negative. Current Outpatient Medications: albuterol sulfate HFA 108 (90 Base) MCG/ACT inhaler, Inhale 1 puff Daily As Needed for Shortness ofAir or Wheezing., Disp: , Rfl: desvenlafaxine (PRISTIQ) 100 MG 24 hr tablet, Take 1 tablet by mouth Daily., Disp: , Rfl: fluconazole (DIFLUCAN) 150 MG tablet, Take 1 tablet by mouth. As needed, Disp: , Rfl: Focalin XR 30 MG 24 hr capsule, Take 1 capsule by mouth Daily, Disp: , Rfl: hyoscyamine (LEVSIN) 0.125 MG SL tablet, Place 1 tablet under the tongue Every 8 (Eight) Hours As Needed for Cramping or Diarrhea., Disp: , Rfl: indomethacin (INDOCIN) 25 MG capsule, Take 1 capsule by mouth. (Patient taking differently: Take 1 capsule by mouth. As needed), Disp: , Rfl: levothyroxine (SYNTHROID, LEVOTHROID) 25 MCG tablet, Take 1 tablet by mouth Daily., Disp: , Rfl: levothyroxine (SYNTHROID, LEVOTHROID) 75 MCG tablet, 1 tab(s) orally once a day; Duration: 30 days,Disp: , Rfl: pilocarpine (SALAGEN) 5 MG tablet, Take 2 tablets by mouth 2 (Two) Times a Day., Disp: , Rfl: pilocarpine (SALAGEN) 7.5 MG tablet, 1 TAB(S) ORALLY twice a day; Duration: 90 days, Disp: , Rfl: Probiotic Product (ALIGN PO), Take 1 tablet by mouth Daily., Disp: , Rfl: terazosin (HYTRIN) 10 MG capsule, take 1 capsule by mouth twice daily, Disp: , Rfl: triamterene (DYRENIUM) 50 MG capsule, Take 1 capsule by mouth Daily., Disp: , Rfl: valACYclovir (Valtrex) 500 MG tablet, Take 1 tablet by mouth 2 (Two) Times a Day., Disp: 60 tablet,Rfl: 11 febuxostat (ULORIC) 40 MG tablet, TAKE 1 TABLET(40 MG) BY MOUTH DAILY FOR 2 WEEKS THEN INCREASE TO 80 MG DAILY(2 TABLETS A DAY) (Patient not taking: Reported on 02/09/2025), Disp: 60 tablet, Rfl: 5 Allergies Allergen Reactions Colchicine Shortness Of Breath Clarithromycin Other (See Comments) thrush Clindamycin Other (See Comments) Allopurinol GI Intolerance and Other (See Comments) Azithromycin Rash Cefdinir Other (See Comments) thrush Dexamethasone Palpitations Doxycycline Other (See Comments) thrush Flagyl [Metronidazole] Rash Sulfa Antibiotics Rash Trialodine [Trazodone] Other (See Comments) Blood pressure problems I have reviewed and updated the patient's chief complaint, history of present illness, review of systems, past medical history, surgical history, family history, social history, medications and allergy list as appropriate. Objective Vitals: 02/09/25 1020 BP: 154/100 BP Location: Right arm Patient Position: Sitting Cuff Size: Adult Pulse: 78 Temp: 97.5 ??F (36.4 ??C) Weight: 69.5 kg (153 lb 4.8 oz) Height: 154.9 cm (60.98 ) PainSc: 2 Body mass index is 28.98 kg/m??. Physical Exam General: Well appearing 54 year old female. Not in distress. She is ambulating unassisted. SKIN: No rashes. No alopecia. + nodule in right olecranon bursa. No digital pits or ulcers. No sclerodactyly. HEENT: NCAT. Conjunctiva clear, no photophobia. No oral or nasal ulcers. Hearing intact. Pulmonary: Clear to auscultation bilaterally. No wheezing, rales, or rhonchi. CV: Regular rate and rhythm. No murmurs, rubs, or gallops. Psych: Normal mood and affect. Alert and oriented x 3. Extremities: No cyanosis or edema. Musculoskeletal: No joint swelling or tenderness to palpation. No warmth or erythema. Normal range of motion of the wrists, ankles, elbows, and knees. Lymph: No palpable cervical adenopathy Procedures Assessment / Plan Assessment & Plan Idiopathic chronic gout with tophus, unspecified site Medication/treatment/interventions tried include: Tylenol, Colchicine (Shortness of breath), allopurinol (GI intolerance), She is sulfa allergic (Cannot take sulfasalazine, she has seen podiatry, indomethacin, gabapentin, Desvenlafaxine, amitriptyline, she has seen neurology, She saw Hernán Reagan MD in 2005 - 2009 (rheumatology), Cymbalta, ibuprofen, chlorzoxazone, Topamax, Skelaxin, she had foot surgery, She has seen [facility], Febuxostat (side effects) She has tried taking oral NSAIDS like ibuprofen and indomethacin She reports that she is allergic/intolerant of colchicine (shortness of breath) She lists that she was/is allergic/intolerant of allopurinol (GI Intolerance) I would recommend if possible to limit/avoid diuretic exposure. Diuretics increase the serum uric acid level and can exacerbate gout. If needed can use steroids to treat flare ups PRN. We had prescribed her Febuxostat. She reports she stopped it because it raised her blood pressure and caused flank pain. She also thinks it made her have chills/sweats. Today I will try probenecid Risks and benefits reviewed. She reports she had labs done at her PCP office recently. Fibromyalgia 1. H & P consistent with this diagnosis. 2. Encourage aerobic activity and sleep hygiene. 3. If she has not had a sleep study/consultation consider getting this done. 4. Tylenol PRN is ok as directed 5. She has tried oral NSAIDs like ibuprofen and indomethacin 6. She has tried taking muscle relaxer's like Skelaxin and chlorzoxazone 7. She has taken Cymbalta, 8. She has taken amitriptyline 9. She saw Hernán Reagan MD. He was a varnish inspector 10. She has taken gabapentin 11. She has taken Desvenlafaxine. 12. She has seen neurology 13. She has tried taking Topamax. Primary osteoarthritis involving multiple joints Tylenol PRN is ok as directed She has taken oral NSAIDs like ibuprofen She has seen podiatry She has taken muscle relaxer's PRN. She has had foot surger Follow Up: Return in about 6 months (around 08/12/2025). Obdulio De Paz DO [facility] [place] * Jackie Webber, ENGRAVER ORNAMENTAL DESIGN - 02/09/2025 9:30 AM EDTAssociated Problem(s): Idiopathic chronic gout with tophus Medication/treatment/interventions tried include: Tylenol, Colchicine (Shortness of breath), allopurinol (GI intolerance), She is sulfa allergic (Cannot take sulfasalazine, she has seen podiatry, indomethacin, gabapentin, Desvenlafaxine, amitriptyline, she has seen neurology, She saw Hernán Reagan MD in 2005 - 2009 (rheumatology), Cymbalta, ibuprofen, chlorzoxazone, Topamax, Skelaxin, she had foot surgery, She has seen [facility] Studies reviewed included: 03/11/24: CBC ok, ESR normal, BUN 18.0, Glucose 155, Uric acid 6.0, CMP otherwise, CRP elevated at 14 (<4.0), Vitamin D normal 06/16/2024: CARLOS A 1: 80 speckled, ERNESTO panel otherwise negative, 14.3.3 negative, ANCA panel negative, beta-2 glycoprotein antibodies negative, CK and aldolase normal, sed rate normal, CRP 2.31 (0-0.5), HLA-B27 negative, RF negative, thyroglobulin/TPO antibodies negative, thyroid function normal, QTB negative, hepatitis panel negative 07/27/24: uric acid 6.9 11/08/24: PCP labs show elevation WBC 11.9, elevated D-dimer She has tried taking oral NSAIDS like ibuprofen and indomethacin She reports that she is allergic/intolerant of colchicine (shortness of breath) She lists that she was/is allergic/intolerant of allopurinol (GI Intolerance) I would recommend if possible to limit/avoid diuretic exposure. Diuretics increase the serum uric acid level and can exacerbate gout. Currently she is on metolazone and If needed can use steroids to treat flare ups PRN. We will try starting Febuxostat. Start 40 mg PO once/day x 2 weeks then increase to 80 mg/day. Risks and benefits reviewed. * Jackie Webber APRN - 02/09/2025 9:30 AM EDTAssociated Problem(s): Fibromyalgia 1. H & P consistent with this diagnosis. 2. Encourage aerobic activity and sleep hygiene. 3. If she has not had a sleep study/consultation consider getting this done. 4. Tylenol PRN is ok as directed 5. She has tried oral NSAIDs like ibuprofen and indomethacin 6. She has tried taking muscle relaxer's like Skelaxin and chlorzoxazone 7. She has taken Cymbalta, 8. She has taken amitriptyline 9. She saw Hernán Reagan MD. He was a varnish inspector 10. She has taken gabapentin 11. She has taken Desvenlafaxine. 12. She has seen neurology 13. She has tried taking Topamax. * Jackie Webber APRN - 02/09/2025 9:30 AM EDTAssociated Problem(s): Primary osteoarthritis involving multiple joints Tylenol PRN is ok as directed She has taken oral NSAIDs like ibuprofen She has seen podiatry She has taken muscle relaxer's PRN. She has had foot surgery * Jackie Webber APRN - 02/09/2025 9:30 AM EDT Images from the original note were not included. Office Visit Date: 02/09/2025 Patient Name: Dmitriy Mccrary Date of : 1970 Referring Physician: No ref. provider found No chief complaint on file. History of Present Illness: Dmitriy Mccrary is a 54 y.o. female who is here today for first time follow up of tophaceous gout. She established care with Dr. De Paz 06/2024. She has previously been diagnosed with fibromyalgia. Today she rates her pain as 10/10 in severity. She has 1 hour/day of morning stiffness. No red or hot joints. Her joints swell. She has back pain and neck stiffness. No muscle pain. Her arms and legsare weak. Medication/treatment/interventions tried include: Tylenol, Colchicine (Shortness of breath), allopurinol (GI intolerance), She is sulfa allergic (Cannot take sulfasalazine, she has seen podiatry, indomethacin, gabapentin, Desvenlafaxine, amitriptyline, she has seen neurology, She saw Hernán Reagan MD in 2005 - 2009 (rheumatology), Cymbalta, ibuprofen, chlorzoxazone, Topamax, Skelaxin, she had foot surgery, She has seen [facility] Studies reviewed included: 03/11/24: CBC ok, ESR normal, BUN 18.0, Glucose 155, Uric acid 6.0, CMP otherwise, CRP elevated at 14 (<4.0), Vitamin D normal 06/16/2024: CARLOS A 1: 80 speckled, ERNESTO panel otherwise negative, 14.3.3 negative, ANCA panel negative, beta-2 glycoprotein antibodies negative, CK and aldolase normal, sed rate normal, CRP 2.31 (0-0.5), HLA-B27 negative, RF negative, thyroglobulin/TPO antibodies negative, thyroid function normal, QTB negative, hepatitis panel negative 07/27/24: uric acid 6.9 11/08/24: PCP labs show elevation WBC 11.9, elevated D-dimer Subjective Review of Systems Past Medical History: Diagnosis Date ADHD (attention deficit hyperactivity disorder) Allergic Asthma Colitis Depression Disease of thyroid gland Gallbladder abscess Gout Hypertension Migraines Pleurisy Polycystic ovarian disease Sjogren's disease Stroke 03/25/2024 Past Surgical History: Procedure Laterality Date SECTION CHOLECYSTECTOMY HYSTERECTOMY Family History Problem Relation Age of Onset Diabetes Father Stroke Daughter Breast cancer Maternal Aunt Social History Socioeconomic History Marital status: Tobacco Use Smoking status: Never Vaping Use Vaping status: Never Used Substance and Sexual Activity Alcohol use: No Drug use: No Sexual activity: Yes Partners: Male control/protection: Hysterectomy Current Outpatient Medications: albuterol sulfate HFA 108 (90 Base) MCG/ACT inhaler, Inhale 1 puff Daily As Needed for Shortness ofAir or Wheezing., Disp: , Rfl: desvenlafaxine (PRISTIQ) 100 MG 24 hr tablet, Take 1 tablet by mouth Daily., Disp: , Rfl: febuxostat (ULORIC) 40 MG tablet, TAKE 1 TABLET(40 MG) BY MOUTH DAILY FOR 2 WEEKS THEN INCREASE TO 80 MG DAILY(2 TABLETS A DAY), Disp: 60 tablet, Rfl: 5 fluconazole (DIFLUCAN) 150 MG tablet, Take 1 tablet by mouth. As needed, Disp: , Rfl: Focalin XR 30 MG 24 hr capsule, Take 1 capsule by mouth Daily, Disp: , Rfl: hyoscyamine (LEVSIN) 0.125 MG SL tablet, Place 1 tablet under the tongue Every 8 (Eight) Hours As Needed for Cramping or Diarrhea., Disp: , Rfl: indomethacin (INDOCIN) 25 MG capsule, Take 1 capsule by mouth. (Patient taking differently: Take 1 capsule by mouth. As needed), Disp: , Rfl: levothyroxine (SYNTHROID, LEVOTHROID) 25 MCG tablet, Take 1 tablet by mouth Daily., Disp: , Rfl: pilocarpine (SALAGEN) 5 MG tablet, Take 2 tablets by mouth 2 (Two) Times a Day., Disp: , Rfl: Probiotic Product (ALIGN PO), Take 1 tablet by mouth Daily., Disp: , Rfl: terazosin (HYTRIN) 2 MG capsule, Take 1 capsule by mouth 2 (Two) Times a Day., Disp: , Rfl: triamterene (DYRENIUM) 50 MG capsule, Take 1 capsule by mouth Daily., Disp: , Rfl: valACYclovir (Valtrex) 500 MG tablet, Take 1 tablet by mouth 2 (Two) Times a Day., Disp: 60 tablet,Rfl: 11 Allergies Allergen Reactions Colchicine Shortness Of Breath Clarithromycin Other (See Comments) thrush Clindamycin Other (See Comments) Allopurinol GI Intolerance and Other (See Comments) Azithromycin Rash Cefdinir Other (See Comments) thrush Dexamethasone Palpitations Doxycycline Other (See Comments) thrush Flagyl [Metronidazole] Rash Sulfa Antibiotics Rash Trialodine [Trazodone] Other (See Comments) Blood pressure problems I reviewed the patient's chief complaint, history of present illness, review of systems, past medical history, surgical history, family history, social history, medications and allergy list. Objective There were no vitals filed for this visit. There is no height or weight on file to calculate BMI. Defer to PCP Physical Exam General: Well appearing 54 year old female. Not in distress. She is ambulating unassisted. SKIN: No rashes. No alopecia. + nodule in right olecranon bursa. No digital pits or ulcers. No sclerodactyly. HEENT: NCAT. Conjunctiva clear, no photophobia. No oral or nasal ulcers. Hearing intact. Pulmonary: Clear to auscultation bilaterally. No wheezing, rales, or rhonchi. CV: Regular rate and rhythm. No murmurs, rubs, or gallops. Psych: Normal mood and affect. Alert and oriented x 3. Extremities: No cyanosis or edema. Musculoskeletal: No joint swelling or tenderness to palpation. No warmth or erythema. Normal range of motion of the wrists, ankles, elbows, and knees. Lymph: No palpable cervical adenopathy Assessment / Plan Assessment & Plan Idiopathic chronic gout with tophus, unspecified site Medication/treatment/interventions tried include: Tylenol, Colchicine (Shortness of breath), allopurinol (GI intolerance), She is sulfa allergic (Cannot take sulfasalazine, she has seen podiatry, indomethacin, gabapentin, Desvenlafaxine, amitriptyline, she has seen neurology, She saw Hernán Reagan MD in 2005 - 2009 (rheumatology), Cymbalta, ibuprofen, chlorzoxazone, Topamax, Skelaxin, she had foot surgery, She has seen [facility] Studies reviewed included: 03/11/24: CBC ok, ESR normal, BUN 18.0, Glucose 155, Uric acid 6.0, CMP otherwise, CRP elevated at 14 (<4.0), Vitamin D normal 06/16/2024: CARLOS A 1: 80 speckled, ERNESTO panel otherwise negative, 14.3.3 negative, ANCA panel negative, beta-2 glycoprotein antibodies negative, CK and aldolase normal, sed rate normal, CRP 2.31 (0-0.5), HLA-B27 negative, RF negative, thyroglobulin/TPO antibodies negative, thyroid function normal, QTB negative, hepatitis panel negative 07/27/24: uric acid 6.9 11/08/24: PCP labs show elevation WBC 11.9, elevated D-dimer She has tried taking oral NSAIDS like ibuprofen and indomethacin She reports that she is allergic/intolerant of colchicine (shortness of breath) She lists that she was/is allergic/intolerant of allopurinol (GI Intolerance) I would recommend if possible to limit/avoid diuretic exposure. Diuretics increase the serum uric acid level and can exacerbate gout. Currently she is on metolazone and If needed can use steroids to treat flare ups PRN. We will try starting Febuxostat. Start 40 mg PO once/day x 2 weeks then increase to 80 mg/day. Risks and benefits reviewed. Fibromyalgia 1. H & P consistent with this diagnosis. 2. Encourage aerobic activity and sleep hygiene. 3. If she has not had a sleep study/consultation consider getting this done. 4. Tylenol PRN is ok as directed 5. She has tried oral NSAIDs like ibuprofen and indomethacin 6. She has tried taking muscle relaxer's like Skelaxin and chlorzoxazone 7. She has taken Cymbalta, 8. She has taken amitriptyline 9. She saw Hernán Reagan MD. He was a varnish inspector 10. She has taken gabapentin 11. She has taken Desvenlafaxine. 12. She has seen neurology 13. She has tried taking Topamax. Primary osteoarthritis involving multiple joints Tylenol PRN is ok as directed She has taken oral NSAIDs like ibuprofen She has seen podiatry She has taken muscle relaxer's PRN. She has had foot surgery Discussed plan of care in detail with the patient today. Patient verbalized understanding and agrees. I confirm accuracy of unchanged data/findings which have been carried forward from previous visit. I have updated appropriately those that have changed. Follow Up: No follow-ups on file. Jackie Webber APRN [facility] Rheumatology [facility] documented in this encounter Plan of Treatment Upcoming Encounters Date Type Department Care Team (Late st Contact Info) Description 08/11/2025 10:00 AM EST Office Visit [facility] [address] [phone] Jackie Webber, ENGRA[employer] [address] [address] 02/01/2026 10:30 AM EDT Office Visit [facility] GYNECOLOGY [address] [phone] Liana Brock MD [address] [id number] documented as of this encounter Visit Diagnoses Diagnosis Idiopathic chronic gout with tophus, unspecified site- Primary Fibromyalgia Unspecified myalgia and myositis Primary osteoarthritis involving multiple joints documented in this encounter Care Teams Commercial Photographer Relationship Specialty Start Date End Date Librado Abarca MD [address] [facility] [address] [facility] [address] [place] [address] PCP - General Adolescent Medicine 06/16/24 documented as of this encounter
--- OUTSIDE RECORDS SUMMARY | 2025-03-16 17:57 | XMS_ITS | Encounter Summary ---
Author Organization [facility] Address [address] [place] [address] Care Team Providers Care Pipe Finisher Name Role Phone Librado Abarca MD Primary Care Provider + [phone] Encounter Details Date Type Department Care Team [...] Description 08/11/2025 10:00 AM EST Office Visit [facility] [address] [phone] Jackie Webber APRN [address] [address] 02/01/2026 10:30 AM EDT Office Visit [facility] [address] [address] Liana Brock MD [address] [address] documented as of this encounter Visit Diagnoses Not on filedocumented in this encounter Care Teams Pipe Finisher Relationship Specialty Start Date End Date Librado Abarca MD [address] [facility] [address] [place] [id number] PCP - General Adolescent Medicine 06/16/24 documented as of this encounter
--- OUTSIDE RECORDS SUMMARY | 2025-03-16 17:57 | XMS_ITS | Clinical Summary ---
Author Organization [facility] Address [address] [place] [address] Care Team Providers Care Tele Marketing Executive Name Role Phone Librado Abarca MD Primary Care Provider + [phone] Allergies Active Allergy Reactions Criticality Noted Date [...] saw Hernán Reagan MD. He was a orthopedic podiatrist 10. She has taken gabapentin 11. She [...] saw Hernán Reagan MD. He was a orthopedic podiatrist 10. She has taken gabapentin 11. She [...] saw Hernán Reagan MD. He was a orthopedic podiatrist 10. She has taken gabapentin 11. She [...] she had foot surgery, She has seen [facility] Rheumatology, Febuxostat (side effects) She has [...] she had foot surgery, She has seen [facility] Rheumatology Studies reviewed included: 03/11/24: CBC [...] Description 02/09/2025 9:45 AM EDT Office Visit [facility] [address] [phone] Obdulio De Paz DO Idiopathic chronic gout with tophus, unspecified site (Primary Dx); Fibromyalgia; Primary osteoarthritis involving multiple joints 02/09/2025 Travel 01/30/2025 10:30 AM EDT Office Visit [facility] [address] [place] [address] Liana Brock MD Women's annual routine gynecological examination (Primary Dx); Colon cancer screening; History of herpes genitalis; History of CVA in adulthood 01/30/2025 Travel 01/22/2025 Refill [facility] [address] [phone] Obdulio De Paz DO from [...] Visit [facility] [address] [phone] Jackie Webber, DEALER ACCOUNT MANAGER [address] [address] 02/01/2026 10:30 AM EDT Office Visit [facility]EC[facility] [address] [phone] Liana Brock MD [address] [place] [id number] Health Maintenance Due Date Last Done Comments COLON CANCER SCREENING 5 YEA R SIGMOID[address] COLONOGRAPHY 2014 FECAL OCCULT BLOOD TEST 2014 FIT Testing (1 year) 2014 ANNUAL PHYSICAL 04/18/2018 Pneumococcal Vaccine 50+ (1 of 1 - PCV) 2019 ZOSTER VACCINE (1 of 2) 2019 COLOGUARD 05/12/2024 05/12/2021 COVID-19 Vaccine (4 - 2024-2 6 season) 2025 06/23/2021, 12/25/2020, 11/16/2020 INFLUENZA VACCINE 04/12/2025 04/29/2022, , 06/19/2016 Annual [...] suspicious abnormality is identified. Librado Abarca MD [facility] MAMMOGRAPHY ORDERABLES F inal Result * Hepatitis Panel, Acute (06/16/2024 3:11 PM EST) Hepatitis B Surface Ag Non-Reacti ve Non-Reacti ve 06/17/2024 4:02 AM EST [facility] Hep A IgM Non-Reacti ve Non-Reacti ve 06/17/2024 4:02 AM EST [facility] Hep B C IgM Non-Reacti ve Non-Reacti ve 06/17/2024 4:02 AM EST [facility] Hepatitis C Ab Non-Reacti ve Non-Reacti ve 06/17/2024 4:02 AM EST [facility] Blood Venipuncture / Unknown 06/16/2024 3:11 PM EST 06/16/2024 3:11 PM EST Narrative [facility] - 06/17/2024 4:02 AM EST Results may be falsely decreased if patient taking Biotin. Obdulio De Paz DO LAB BLOOD ORDERABLES F inal Result [facility]
[address] [place] [address], [place] [phone] from Last 3 Months or Most Recently Relevant to Health Maintenance Insurance EMPLOYEE Care Teams Tele Marketing Executive Relationship Specialty Start Date End Date Librado Abarca MD [address] [facility] [address] [address] PCP - General Adolescent Medicine 06/16/24
--- OUTSIDE RECORDS SUMMARY | 2025-03-16 17:57 | XMS_ITS | Encounter Summary ---
Author Organization [facility] Address [address] [place] [address] Care Team Providers Care Echocardiography Tech Name Role Phone Librado Abarca MD Primary Care Provider + [phone] Encounter Details Date Type Department Care Team [...] Description 08/11/2025 10:00 AM EST Office Visit [facility] RHEUMATOLOGY [address] [phone] Jackie Webber, TAX PROFESSIONAL [address] [address] 02/01/2026 10:30 AM EDT Office Visit [facility]ECOLOGY [address] [address] Liana Brock MD [address] [address] documented as of this encounter Visit Diagnoses Not on filedocumented in this encounter Care Teams Echocardiography Tech Relationship Specialty Start Date End Date Librado Abarca MD 1210 [facility] [address] [place] [address] PCP - General Adolescent Medicine 06/16/24 documented as of this encounter
--- OUTSIDE RECORDS SUMMARY | 2025-03-16 17:57 | XMS_ITS | Encounter Summary ---
Author Organization [facility] Address [address] [place] [address] Care Team Providers Care Rn Patient Care Name Role Phone Librado Abarca MD Primary Care Provider + [phone] Reason for Visit * Reason Comments Med Refill Encounter Details Date Type Department Care Team (Late st Contact Info) Description 01/22/2025 Refill [facility] RHEUMATOLOGY 330 [facility] [address] [place] [address] Obdulio De Paz DO 330 [facility] [address] [place], [place] [id number] Social History Tobacco Use Types Packs/Day Years [...] Description 08/11/2025 10:00 AM EST Office Visit [facility] RHEUMATOLOGY 330 [facility] [address] [place] [phone] Jackie Webber, DEPUTY COUNTY CLERK 330 [facility] [address] [place], [place] [id number] 02/01/2026 10:30 AM EDT Office Visit [facility] GYNECOLOGY [address] [address] Liana Brock MD [address] [address] documented as of this encounter Visit Diagnoses Not on filedocumented in this encounter Care Teams Rn Patient Care Relationship Specialty Start Date End Date Librado Abarca MD 1210 [facility] [address] [place] [address] PCP - General Adolescent Medicine 06/16/24 documented as of this encounter
--- OUTSIDE RECORDS SUMMARY | 2025-03-16 17:58 | XMS_ITS | Clinical Summary ---
Author Organization [facility] Address [address] [place] [address] Care Team Providers Care Application Helper Name Role Phone Librado Abarca MD Primary Care Provider [phone] Abel Alexander Unavailable Allergies Active Allergy Reactions [...] [facility]-HIV Screening 1969 [facility]-Hepatitis C Screening 1969 [facility]-Infant/Child/Adol SDOH Screenings 1969 [facility]- SDOH Screenings 1987 [facility]-Adult SDOH Screenings 1987 [facility]-Hepatitis B Vaccines (1 of 3 - 19+ 3-dose series) 02/19/1988 CT Colonography 2014 Colonoscopy 2014 FIT-DNA 2014 FIT 2014 FOBT 2014 Sigmoidoscopy 2014 [facility]-Colorectal Cancer Screening 2014 [facility]-Breast Cancer Screening 2019 [facility]-Pneumococcal Vaccine: 50 + Years (1 of 1 - PCV) 2019 [facility]-Zoster Vaccines (1 of 2) 2019 [id number] Vaccine (4 - 2023- season) 2024 06/23/2021, [...] 5.8(H) <5.7 % 10/11/2024 3:32 PM EDT [facility] Blood Venous blood specimen / Unknown Venipuncture / Unknown 10/11/2024 1:16 PM EDT 10/11/2024 1:16 PM EDT Narrative [facility] - 10/11/2024 3:32 PM EDT HA1C Interpretive Data: Diagnosis of Diabetes: Diabetic > or = 6.5% Pre-diabetic 5.7 to 6.4% Non-diabetic < or = 5.6% Glycemic Targets for Type I and Type II Diabetics: Non- Adults <7.0% Adults <6.0% Children and Adolescents <7.5% Source: [place] [employer]. Standards of medical care in diabetes,2017. Diabetes Care.2017:40 (suppl 1):S1-S135. HbA1c assay performed by an ion-exchange chromatography method that is certified traceable to the DCCT. us Linette Edmond MD LAB BLOOD ORDERABLES Final Resu lt [facility] [address] [place] [address] from Last 3 Months or Most Recently Relevant to Health Maintenance Insurance [employer]M Care Teams Application Helper Relationship Specialty Start Date End Date Librado Abarca MD [address] [place] [address] PCP - General Internal Medicine 04/26/24 Abel Alexander [address] [place] [address] Resident Neurology 10/11/24
--- OUTSIDE RECORDS SUMMARY | 2025-03-16 17:58 | XMS_ITS | Patient Health Record ---
Author Organization [facility] Address [address] [place] [address] [place] [address] Care Team Providers Care County Nurse Name Role Phone Librado Abarca Primary Care Provider Caro Worley Unavailable [phone] Jamila Justice Unavailable [phone] Migration, Provider Unavailable Unavailable Allergies Allergen (clinical drug ingredient) Drug/Non Drug Allergy documented on EMR Reaction Allergy Type Onset Date Status BIAXIN (uncoded) Unknown Allergy Act stephanie OMNICEF (uncoded) Unknown Allergy Ac tive SULFA (uncoded) Unknown Allergy Acti ve YEAST DRUGS (uncoded) Unknown Allergy Active amoxicillin / clavulanate Augmentin diarrhea Drug Allergy Active azithromycin Zithromax Unknown Drug Allergy Acti ve doxycycline Doxycycline Unknown Drug Allergy Act stephanie allopurinol Allopurinol itching, fever blisters Drug Allergy 07/19/2020 Active colchicine Colchicine stomach upset Drug Allergy A ctive clindamycin Clindamycin Unknown Drug Allergy Act stephanie trazodone traZODone Unknown Drug Allergy Active Results Component Value Reference Range Notes Mammogram : Diagnostic Reviewed date:10/20/2024 01:50:12 PM Interpretation: Performing Lab: Notes/Report: BASIC METABOLIC PANEL (15135 ) Reviewed date:11/23/2024 10:57:46 AM Interpretation: Performing Lab:CB, [facility] [address], [place] FrostLocvRM[address] [place] Notes/Report: NON-FASTING; NON-FASTING GLUCOSE 115 [...] 30 20-32 mmol/L CALCIUM 10.1 8.6-10.4 mg/dL VENOUS DUPLEX LOWER BILATERA L Reviewed date:11/19/2024 10:07:04 AM Interpretation: Performing Lab: Notes/Report: BASIC METABOLIC PANEL (60165 ) Reviewed date:11/11/2024 09:40:15 AM Interpretation: Performing Lab:JESSICA [facility] Zhdd[address], AltarSbrlSI[address] [place] Notes/Report: NON-FASTING; NON-FASTING; NON-FASTING GLUCOSE 130 65-99 mg/dL Fasting reference interval For someone without known diabetes, a glucose value >125 mg/dL indicates that they may have diabetes and this should be confirmed with a follow-up test. UREA NITROGEN (BUN) 16 7-25 mg/dL CREATININE 0.98 0.50-1.03 mg/dL EGFR 68 > OR = 60 mL/min/1.73m2 BUN/CREATININE RATIO SEE NOTE: 6- (calc) Not Reported: BUN and Creatinine are within reference range. SODIUM 139 135-146 mmol/L POTASSIUM 3.7 3.5-5.3 mmol/L CHLORIDE 99 98-110 mmol/L CARBON DIOXIDE 27 20-32 mmol/L CALCIUM 10.1 8.6-10.4 mg/dL URIC ACID (905) Reviewed date:11/23/2024 10:58:02 AM Interpretation: Performing Lab:JESSICA, [facility] [address], [place] MatterNumhVU[address] [place] Notes/Report: NON-FASTING; NON-FASTING URIC ACID 2.5 2.5-7.0 mg/dL Therapeutic ta rget for gout patients: <6.0 mg/dL CBC (INCLUDES DIFF/PLT) (639 9) Reviewed date:11/11/2024 09:40:15 AM Interpretation: Performing Lab:JESSICA [facility] [address] [facility], [facility]OC[address] [place] Notes/Report: NON-FASTING; NON-FASTING; NON-FASTING WHITE [...] MPV 9.8 7.5-12.5 fL ABSOLUTE NEUTROPHILS 8782 4590-6640 cells/uL ABSOLUTE LYMPHOCYTES 2237 850-3900 cells/uL ABSOLUTE MONOCYTES 702 200-950 cells/uL ABSOLUTE EOSINOPHILS 143 15-500 cells/uL ABSOLUTE BASOPHILS 36 0-200 cells/uL NEUTROPHILS 73.8 LYMPHOCYTES 18.8 MONOCYTES 5.9 EOSINOPHILS 1.2 BASOPHILS 0.3 D-DIMER, QUANTITATIVE (8659) Reviewed date:11/11/2024 09:40:15 AM Interpretation: Performing Lab:JESSICA [facility] [address] [facility], [facility]ymzDG[address] [place] Notes/Report: NON-FASTING; NON-FASTING; NON-FASTING D-DIMER, QUANTITATIVE 1.05 <0.50 mcg/mL FEU Elevated D-dimer levels are associated with DIC, malignancies, inflammation, sepsis, surgery, trauma, and . A D-dimer result less than 0.5 mcg/mL FEU, in conjunction with a non-high clinical pre-test probability assessment model, excludes deep vein thrombosis and pulmonary embolism. However, since D-dimer values increase with age, the [employer] recommends an age-adjusted cut-off value in patients older than 50. The calculation for an age adjusted cut-off value is age (years) x 0.01 mcg/mL FEU. For example, the cut-off for a 70-year-old patient would be 70 x 0.01 mcg/mL FEU. For additional information, please refer to [email or web address] (This link is being provided for informational/educational purposes only.) Medications Medication SIG (Take, Route, Frequency, Duration) [...] review and pick correct strength-formulati on from [employer] options. If intended option is not shown, discontinue and re-order from Quick Search* Active Focalin XR 30 MG 1 CAP(S) ORALLY ONCE A DAY (IN THE MORNING) *Please review and pick correct strength-formulati on from [employer] options. If intended option is not shown, discontinue and re-order from Quick Search* Active Align 4 MG 1 CAP(S) ORALLY ONCE A DAY *Please review and pick correct strength-formulati on from [employer] options. If intended option is not shown, discontinue and re-order from Quick Search* Active Diflucan 150 MG 1 tablet Orally daily; Duration: 3 days 03/16/2025 Active Triamterene 50 MG 1 capsule Orally Once a day; Duration: 90 days Active Hyoscyamine Sulfate 0.125 MG 1 tab(s) sublingually every 8 hours; Duration: 30 day(s) Active Terazosin HCl 10 MG 1 cap(s) orally bid 01/07/2017 Active Airsupra 90 MCG-80 MCG/INH 2 INH INHALED EVERY 6 HOURS PRN; Duration: 30 DAYS STOP Ventolin *Please review and pick correct strength-formulati on from [employer] options. If intended option is not shown, [...] Problem Status W/U Status Risk Notes Problem Mixed hyperlipidemia (561804847) Mixed hyperlipidemia (E78.2) Active confirmed Problem Hypokalemia (52782651) Hypokalemia (E87.6) Active confirmed Problem Vitamin D deficiency (70391895) Vitamin D deficiency (E55.9) Active confirmed Problem Essential hypertension (39878832) Essential hypertension (I10) Active confirmed Problem Seasonal allergy (513220773) Seasonal allergies (J30.2) Active confirmed Problem Urinary frequency (105338383) Urinary frequency (R35.0) Active confirmed Problem Elevated liver enzymes level (528489943) Elevated liver enzymes (R74.8) Active confirmed Problem Inflammatory polyarthropathy (048539164) Arthritis, multiple joint involvement (M12.9) Active confirmed Problem Primary gout (66022297) Acute idiopathic gout of left foot (M10.072) Active confirmed Problem Chronic serous otitis media (75148117) Bilateral chronic serous otitis media (H65.23) Active confirmed Problem Migraine without aura, not refractory (245706998) Migraine without aura and without status migrainosus, not intractable (G43.009) Active confirmed Problem Sicca syndrome (59298635) Sicca syndrome (M35.00) Active confirmed Problem Rosacea (852092241) Rosacea (L71.9) Active conf irmed Problem Gouty arthritis (21464730) Gouty arthritis (M10.9) Active confirmed Problem Arthralgia of multiple joints (62418728) Arthralgia of multiple joints (M25.50) Active confirmed Problem Hypothyroidism (85130010) Hypothyroidism, unspecified type (E03.9) Active confirmed Problem Transient ischemic attack (744202405) TIA (transient ischemic attack) (G45.9) Active confirmed Problem Chronic cystitis (45042321) Chronic cystitis (N30.20) Active confirmed Problem Burden's neuroma of right foot (183493950238083) Burden's neuroma of right foot (G57.61) Active confirmed Problem Gastroesophageal reflux disease (disorder) (011181140) Chronic GERD (K21.9) Active confirmed Problem Amnesia (91230695) Memory change s (R41.3) Active confirmed Problem Prediabetes (681718626) Prediabetes (R73.03) Active confirmed Problem Acute urinary tract infection (480215913) Acute urinary tract infection (N39.0) Active confirmed Problem Dyskinesia (5530119) Dyskinesia (G24.9) Active confirmed Problem Localized, primary osteoarthritis of the hand (498448965) Arthritis of hand (M19.049) Active confirmed Problem Hyperuricemia without signs of inflammatory arthritis and tophaceous disease (665590891) Elevated blood uric acid level (E79.0) Active confirmed Problem Acute UTI (urinary tract infection) (299203074) Acute UTI (urinary tract infection) (N39.0) Active confirmed Vital Signs Heart Rate 74 /min 12/13/2024 Temperature 97.9 degrees Fahrenheit 12/13/2024 Blood pressure diastolic 90 mm Hg 12/13/2024 Height 64 in 12/13/2024 Blood pressure systolic 146 mm Hg 12/13/2024 Weight 158 lbs 12/13/2024 BMI 27.12 kg/m2 12/13/2024 Encounters Encounter Location Date Provider Diagnosis [facility] [address] [address] 10/15/2024 Provider Migration [facility] [address] [place] [address] 03/21/2024 Librado Abarca Dizziness R42 ; Elmer ry changes R41.3 and Abnormal involuntary movement R25.9 [facility] [address] [address] 03/29/2024 Librado Abarca TIA (transient ischemic attack) G45.9 [facility] [address] [address] 04/13/2024 Caro Brunilda Essential hypertensi on I10 ; Dizziness R42 and Memory changes R41.3 [facility] [address] [place] [address] 05/28/2024 Jamila McNees Bronchitis J40 and Thrush B37.0 [facility] [address] [place] [address] 06/01/2024 Librado Besson Acute bronchitis, unspecified organism J20.9 [facility] [address] [address] 07/28/2024 Librado Besson Acute URI J06.9 ; Mixed hyperlipidemia E78.2 and Dyskinesia G24.9 [facility] [address] [place] [address] 09/27/2024 Librado Besson Unspecified lump in the right breast, unspecified quadrant N63.10 ; Unspecified lump in the left breast, unspecified quadrant N63.20 ; Essential hypertension I10 ; Hypothyroidism, unspecified type E03.9 and Mixed hyperlipidemia E78.2 [facility] [address] [address] 10/27/2024 Librado Besson Hypothyroidism, unspecified type E03.9 ; Gouty arthritis M10.9 ; Actinic keratosis L57.0 ; Peripheral edema R60.0 and Seasonal allergies J30.2 [facility] [address] [address] 11/08/2024 Librado Besson Lower extremity heike a R60.0 and Ecchymosis R58 [facility] [address] [address] 11/22/2024 Librado Besson Gouty arthritis M10. 9 [facility] [address] [address] 12/13/2024 Librado Besson Acute URI J06.9 ; Essential hypertension I10 and Peripheral edema R60.0 [facility] [address] [address] 03/18/2024 Librado Besson [facility] [address] [address] 04/05/2024 Librado Besson [facility] [address] [address] 04/08/2024 Librado Besson [facility] [address] [place] [address] 04/22/2024 Librado Besson [facility] [address] [place] [address] 05/25/2024 Librado Besson [facility] [address] [place] [address] 05/27/2024 Librado Besson [facility] [address] [place] [address] 05/30/2024 Jamila Reshma Bronchitis J40 [facility] [address] [place] [address] 06/14/2024 Librado Besson [facility] [address] [place] [address] 09/15/2024 Librado Besson [facility] [address] [place] [address] 09/28/2024 Librado Besson Breast cancer screening by mammogram Z12.31 and Unspecified lump in the right breast, unspecified quadrant N63.10 [facility] [address] [place] [address] 09/28/2024 Librado Besson [facility] [address] [place] [address] 10/13/2024 Librado Besson Unspecified lump in the right breast, unspecified quadrant N63.10 [facility] [address] [place] [address] 11/03/2024 Librado Besson [facility] [address] [place] [address] 11/09/2024 Librado Besson Elevated d-dimer R79.89 ; Pain in right leg M79.604 and Pain in left leg M79.605 [facility] [address] [place] [address] 11/25/2024 Librado Besson [facility] [address] [place] [address] 12/08/2024 Librado Besson [facility] [address] [place] [address] 03/16/2025 Librado Besson [facility] [address] [place], [place] [address] 04/19/2024 Librado Besson [facility] [address] [place], [place] [address] 04/19/2024 Librado Besson [facility] [address] [place], [place] [address] 06/03/2024 Librado Besson [facility] [address] [place], [place] [address] 06/11/2024 Libradonam Abarca Assessments Encounter Date Diagnosis (ICD Code) Assessment Notes Treatment Notes Treatment Clinical Notes Section Notes 03/21/2024 Memory changes (ICD-10 - R41.3) - patient has had some changes in her memory, stating she isn't as sharp as she was before. 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 - recent labs within normal limits PLAN - will check TSH today 04/13/2024 Essential hypertension (ICD-10 - I10) 09/28/2024 Unspecified lump in the right breast, unspecified quadrant (ICD-10 - N63.10) 09/28/2024 Breast cancer screening by mammogram (ICD-10 - Z12.31) 11/08/2024 Lower extremity edema (ICD-10 - R60.0) [...] Pain in right leg (ICD-10 - M79.604) 11/09/2024 Elevated d-dimer (ICD-10 - R79.89) 10/27/2024 Gouty arthritis (ICD-10 - M10.9) discussed starting uloric 40 mg po daily 08/14 allergy to allopurinol and colcrys will trial uloric and then check labs in about 3 weeks, with uric acid level 10/27/2024 Hypothyroidism, unspecified type (ICD-10 - E03.9) re-check TFTs in 3 weeks at follow-up appointment 10/13/2024 Unspecified lump in the right breast, unspecified quadrant (ICD-10 - N63.10) 09/27/2024 Unspecified lump in the right breast, unspecified quadrant (ICD-10 - N63.10) 09/27/2024 Unspecified lump in the left breast, unspecified quadrant (ICD-10 - N63.20) I have low suspicion for malignancy given the physical exam appearance of the nodules. However, mammogram and ultrasound are warranted, these will be ordered. I will review these personally 07/28/2024 Mixed hyperlipidemia (ICD-10 - E78.2) Trial [...] treatment at this point. Supportive care discussed. 06/01/2024 Acute bronchitis, unspecified organism (ICD-10 - [...] No improvement with nystatin, diflucan as above 03/29/2024 TIA (transient ischemic attack) (ICD-10 - [...] diagnosis, can consider vestibular rehab in future 03/21/2024 Abnormal involuntary movement (ICD-10 - R25.9) [...] and will bring up at this appointment 07/28/2024 Dyskinesia (ICD-10 - G24.9) Overall its improved from a couple visits ago. She is off amitriptyline now and I think this has helped. I encouraged her to talk with her psychiatrist about further med adjustments that she might need. She is not sleeping well. She will discuss this with her psychiatrist. 10/27/2024 Actinic keratosis (ICD-10 - L57.0) persent on sun exposed areas no concerning features for malignancy, however lesions are scaly discussed using moisturizing spots and if no improvment on return visit will consider derm referral 11/09/2024 Pain in left leg (ICD-10 - M79.605) 12/13/2024 Peripheral edema (ICD-10 - R60.0) Really no evidence of edema today. Stay on low-dose triamterene. Follow-up in 3 months with labs. 04/13/2024 Dizziness (ICD-10 - R42) has had extensive workup with additional pending 09/27/2024 Essential hypertension (ICD-10 - I10) Blood pressure under good control, no changes in plan 09/27/2024 Hypothyroidism, unspecified type (ICD-10 - E03.9) Clinically euthyroid. Labs will be due at next visit 04/13/2024 Memory changes (ICD-10 - R41.3) has had extensive workup and additional pending her visit with Vascular 10/27/2024 Peripheral edema (ICD-10 - R60.0) tiral triamterene d/t low side effect profile and effect on uric acid levels check CMP in 3 weeks at follow-up appointment 09/27/2024 Mixed hyperlipidemia (ICD-10 - E78.2) Tolerating [...] 09/25/2006 Mammogram : Diagnostic 09/28/2024 Rapid Strep 09/25/2006 Rapid Strep 03/25/2010 Rapid Strep 11/04/2006 N-CMP 09/25/2006 N-HbA1C 09/25/2006 EKG : In [...] C-CYTOMEGALOVIRUS AB IGG, IGM 06/23/2018 C-URINE CULTURE 03/23/2020 C-URINE CULTURE 07/18/2019 C-URINE CULTURE 06/03/2019 C-URINE CULTURE 03/16/2019 C-URINE CULTURE 02/04/2019 C-URINE CULTURE 04/28/2011 C-SJOGRENS ANTIBODIES 05/09/2015 C-CPK [...] DUPLEX 03/21/2024 Next Appt Details Provider Name:Librado Abarca, 03/21/2025 12:30:00 PM, [address] [place] [address], [phone], Insurance Providers Payer Name Payer Address Payer Phone Subscriber Number Group Number Insured Name Patient Relationship to Insured Coverage Start Date Coverage End Date [employer] [address] [place] [address] [id number] Ned[address] Shawnabethany Self - patient is the insured Medications [...]
--- OUTSIDE RECORDS SUMMARY | 2025-03-16 17:58 | XMS_ITS | Clinical Summary ---
Author Organization [facility] Address [address] [facility] [place] [address] Phone Care Team Providers Care General Assembler Installer Name Role Phone Home Infusion DD, LIDC Unavailable Unavailab le Conditions or Problems Problem Name Problem Code Onset Date Status Entry Date Provider Comment Standard Description Annotate Fatigue 27866277 (SNOMED CT) Active 09/13 Silvio Thomas MD Fatigue Sicca syndrome 17184339 (SNOMED CT) Active 08/29 Silvio Thomas MD Sjogren's syndrome Acute cystitis w/o hematuria 64879908 (SNOMED CT) Active 08/16 Laura Che Urinary tract infectious disease Benign Essential Hypertension 21979635 (SNOMED CT) Active 08/16 Laura Che Benign hypertension Frequency of urination 609827802 (SNOMED CT) Active 08/16 Laura Che Increased frequency of urination Hypokalemia 24613911 (SNOMED CT) Active 08/16 Laura Che Hypokalemia Candidiasis, oral 69246376 (SNOMED CT) Active 08/16 Laura Che Candidiasis of mouth Medications Medication Instructions Start Date Stop Date Generic Name [facility] Provider PRISTIQ 50 MG [id number] take 1 tablet by mouth daily DESVENLAFAXINE SUCCINATE 60819680148 Carmen Beverley VALTREX 1 GM TABS take 1 tablet by mouth daily VALACYCLOVIR HCL 28088634144 Carmen Beverley AMITRIPTYLINE HCL 100 MG TABS take 1 tablet by mouth daily AMITRIPTYLINE HCL 70774971933 Carmen Beverley VIVELLE-DOT 0.0375 MG/24HR PTTW apply transdermally twice weekly ESTRADIOL 05834003105 Carmen Vigo TERAZOSIN HCL CAPSULE TERAZOSIN HCL CAPS 64956387106 Carmen Lowery PILOCARPINE HCL TABS PILOCARPINE HCL TABS 52296908116 Carmen Kentde SYNTHROID TABS LEVOTHYROXINE SODIUM TABS 90369406808 Carmen Vigo SPIRONOLACTONE 100 MG TABS take 1 tablet by mouth daily SPIRONOLACTONE 56419009717 Carmen Lowery FOCALIN XR 30 MG [id number] take 1 capsule by mouth daily DEXMETHYLPHENIDATE HCL 37794030853 Carmen Vigo Medications Administered No information available. Allergies, Adverse [...] Patient port al update - Email Push, [facility] ... PAT E-MAIL [email or web address] patient's e-mail address Lab Report: [place] T-Lymph-C D4, Immunoglobulins A/E/G/M, Serum, Sjogren' ... [...] External Other: [facility] ... PATPORTALPIN Active This talon l be used to establish a PIN number for patients to register in the Patient Portal. Plan of Care Type Date Detail Pending order Free T4 Pending order TSH Pending order CARLOS A Pending order Immunoglobulins Quant (IGG,IGA,IGE,IGM) Pending order CD4 Pending order Other Procedures Code Procedure Name Date Entry Date CPT-90563 Free T4 [id number] TSH CPT-63387 CARLOS A CPT-74503 Immunoglobulins Quant (IGG,IGA,IGE,IGM) 2 CPT-07897 CD4 CPT-LAB Other Vital Signs Date Name [...]
[2025-03-16 18:26] LABS: Adenovirus F 40/41, stool Not Detected (NotDetected); Clostridium Difficile A/B, PCR Not Detected (NotDetected); Cyclospora Cayetanesis Not Detected (NotDetected); Plesimonas Shigalloides, PCR Not Detected (NotDetected); Salmonella, PCR Not Detected (NotDetected); Shiga-like toxin E coli Not Detected (NotDetected); Shigella Enterovasive E coli Not Detected (NotDetected); Vibrio, PCR Not Detected (NotDetected); Yersinia Entercolitica, PCR Not Detected (NotDetected)
== END 2025-03-16 23:59 | disposition home or self-care (01) ==
LOC: LAB.DROPOF 17:56
PROVIDERS: Surgery; PCP Internal Medicine Adolescent Medicine; Visit Provider Internal Medicine Adolescent Medicine
DX: R19.7 Diarrhea, unspecified (principal)
CPT/HCPCS: 87506

== ENCOUNTER 2025-05-31 14:40 | Outpatient (CLI) | payer BC, SELFPAY ==
--- OUTSIDE RECORDS SUMMARY | 2025-05-01 06:15 | XMS_ITS ---
Author Organization [facility] Address [address] [place] [address] Care Team Providers Care Social Media Marketing Specialist Name Role Phone Librado Abarca Primary Care Provider Allergies Allergen (clinical drug ingredient) Drug/Non Drug [...] Active Results Component Value Reference Range Notes Urinalysis Reviewed date:05/02/2025 10:44:33 AM Interpretation: Performing Lab: Notes/Report: Color/Clarity yellow Leuk neg Nitrite positive Urobili 1.0 Protein 30mg pH 5.0 Blood neg Sp. Gr. 1.015 Ketone neg Bili neg Glucose 100mg CULTURE, URINE, ROUTINE (395 ) Reviewed date:05/04/2025 04:16:23 PM Interpretation: Performing Lab:JESSICA, [facility], [id number] [place] Notes/Report: NON-FASTING CULTURE, URINE, ROUTINE SEE NOTE CULTURE, URINE, ROUTINE Micro Number: [id number] Test Status: Final Specimen Source: Urine Specimen Quality: Adequate Result: 10,000-49,000 CFU/mL of Escherichia coli COMMENT: Additional non-predominating organism(s) isolated. These organisms, commonly found on external and internal genitalia, are considered colonizers. No further testing performed. E.coli INT YASMIN AMOX/CLAVULANATE I 16 AMP/SULBACTAM R >=32 CEFAZOLIN R 8 1 CEFEPIME S <=0.12 CEFTAZIDIME S <=0.5 CEFTRIAXONE S <=0.25 CIPROFLOXACIN R >=4 GENTAMICIN S <=1 IMIPENEM S <=0.25 LEVOFLOXACIN R >=8 MEROPENEM S <=0.25 NITROFURANTOIN S <=16 PIP/TAZOBACTAM S <=4 TRIMETHOPRIM/SULFA S <=20 S = Susceptible I = Intermediate R = Resistant NS = Not susceptible SDD = Susceptible Dose Dependent * = Not Tested NR = Not Reported NN = See Therapy Comments THERAPY COMMENTS Note 1: For uncomplicated UTI caused by E. coli, K. pneumoniae or P. mirabilis: Cefazolin is susceptible if YASMIN <32 mcg/mL and predicts susceptible to the oral agents cefaclor, cefdinir, cefpodoxime, cefprozil, cefuroxime, cephalexin and loracarbef. REASON FOR VISIT possible UTI. Lower back pain, burning when urinating. Thinks she may have thrush. Ankles swelling more than usual Medications Medication SIG (Take, Route, Frequency, Duration) Notes Start Date End Date Status Align 4 MG 1 CAP(S) ORALLY ONCE A DAY *Please review and pick correct strength-formulati on from [employer] options. If intended option is not shown, discontinue and re-order from Quick Search* Active Terazosin HCl 10 MG 1 cap(s) orally bid 01/07/2017 Active Hyoscyamine Sulfate 0.125 MG 1 tab(s) sublingually every 8 hours; Duration: 30 day(s) Active Airsupra 90 MCG-80 MCG/INH 2 INH INHALED EVERY 6 HOURS PRN; Duration: 30 DAYS STOP Ventolin *Please review and pick correct strength-formulati on from Medispan options. If intended option is not shown, discontinue and re-order from Quick Search* 09/28/2024 Active Indomethacin 25 MG 1 cap(s) orally 3 times a day as needed for gout; Duration: 30 days prn Active Macrobid 100 MG 1 capsule with food Orally every 12 hrs; Duration: 5 day(s) 05/01/2025 Active Xanax 0.25 MG 1 tab(s) orally every 8 hours prn Active Focalin XR 30 MG 1 CAP(S) ORALLY ONCE A DAY (IN THE MORNING) *Please review and pick correct strength-formulati on from FonJaxan options. If intended option is not shown, discontinue and re-order from Quick Search* Active Desvenlafaxine ER ( SUCCINATE) 100 MG 1 TAB(S) ORALLY ONCE A DAY *Please review and pick correct strength-formulati on from FonJaxan options. If intended option is not shown, discontinue and re-order from Quick Search* Active Diflucan 150 MG 1 tablet Orally daily; Duration: 7 days 05/01/2025 Active Pilocarpine HCl 7.5 MG 1 TAB(S) ORALLY twice a day; Duration: 90 days Active Triamterene 50 MG 1 capsule Orally Once a day; Duration: 90 days Active Synthroid 75 MCG 1 tab(s) orally once a day; Duration: 30 days Active Nystatin 389628 UNIT/ML 5ml orally 4 times a day till all gone for 2 days; Duration: 7 days 03/21/2025 Active Vital Signs Temperature 97.8 degrees Fahrenheit 05/01/20 25 Blood pressure systolic 140 mm Hg 05/01/20 25 Blood pressure diastolic 78 mm Hg 025 Heart Rate 88 /min 05/01/2025 Height 64 in 05/01/2025 Weight 160.6 lbs 05/01/2025 BMI 27.56 kg/m2 05/01/2025 Encounters Encounter Location Date Provider Diagnosis [facility] [address] [facility] [address] [place] [address] 05/01/2025 Librado Abarca Dysuria R30.0 and Cystitis N30.90 Assessments Encounter Date Diagnosis (ICD Code) Assessment Notes Treatment Notes Treatment Clinical Notes Section Notes 05/01/2025 Dysuria (ICD-10 - R30.0) Patient has a history of recurrent thrush, start Diflucan given antibiotic exposure 05/01/2025 Cystitis (ICD-10 - N30.90) Check culture, reviewed urinalysis showing positive nitrates and leuks. Start Macrobid. Increase fluid intake. Reassured patient that she did not have any evidence of fluid overload or ankle swelling. Plan Of Treatment Medication Medication Name Sig Start Date Stop Date Notes Macrobid 100 MG 1 capsule with food Orally every 12 hrs; Duration: 5 day(s) 05/01/2025 Diflucan 150 MG 1 tablet Orally daily; Duration: 7 days Treatment Notes Assessment Notes Dysuria Patient has a histor y of recurrent thrush, start Diflucan given antibiotic exposure Cystitis Check culture, reviewed urinalysis showing positive nitrates and leuks. Start Macrobid. Increase fluid intake. Reassured patient that she did not have any evidence of fluid overload or ankle swelling. Next Appt Details Follow Up: prn, Reason: Progress Notes * Dmitriy MCCRARY MDOB:03/1970 (55 yo F)Acc No.[id number]:05/01/2025 Progress Notes Patient: Murphy HANS Dmitriy Carlin Provider: Ricardo Abarca MD :1970 A ge:55 Y S ex:Female Date:05/01/2025 Address:[address] [place] [address], [place], [id number] Subjective: * Chief Complaints: * 1 . possible UTI. Lower back pain, burning when urinating. Thinks she may have thrush. Ankles swelling more than usual. * HPI: g en: Drove to the [employer] last week with her family, on the way back and an extra 3-hour ED to her because it stops for shopping. Feels like her ankles are puffy, also has back pain and feels like she has urinary problems and some dysuria. No hematuria. No fevers, no vomiting. * Medical History: M igraine headache, type II diabetes, Fibromyalgia, Depression, Edema, Allergic rhinitis, SICCA syndrome with recurrent thrush, Hypothyroidism, Gout, Normal mammogram and breast US in 11/04. * Medications: T aking Xanax 0.25 MG Tablet 1 tab(s) orally every 8 hours , Notes to Pharmacist: prn, Taking Focalin XR 30 MG Capsule Extended Release 24 Hour 1 CAP(S) ORALLY ONCE A DAY (IN THE MORNING) , Notes to Pharmacist: *Please review and pick correct strength-formulation from [employer] options. If intended option is not shown, discontinue and re-order from Quick Search*, Taking Desvenlafaxine ER ( SUCCINATE) 100 MG TABLET, EXTENDED RELEASE 1 TAB(S) ORALLY ONCE A DAY , Notes to Pharmacist: *Please review and pick correct strength-formulation from [employer] options. If intended option is not shown, discontinue and re-order from Quick Search*, Taking Align 4 MG CAPSULE 1 CAP(S) ORALLY ONCE A DAY , Notes to Pharmacist: *Please review and pick correct strength-formulation from FonJaxan options. If intended option is not shown, discontinue and re-order from Quick Search*, Taking Terazosin HCl 10 MG Capsule 1 cap(s) orally bid , Taking Hyoscyamine Sulfate 0.125 MG Tablet 1 tab(s) sublingually every 8 hours , Taking Airsupra 90 MCG-80 MCG/INH AEROSOL 2 INH INHALED EVERY 6 HOURS PRN , Notes to Pharmacist: STOP Ventolin *Please review and pick correct strength-formulation from FonJaxan options. If intended option is not shown, discontinue and re-order from Quick Search*, Taking Indomethacin 25 MG Capsule 1 cap(s) orally 3 times a day as needed for gout , Notes to Pharmacist: prn, Taking Pilocarpine HCl 7.5 MG TABLET 1 TAB(S) ORALLY twice a day , Taking Triamterene 50 MG Capsule 1 capsule Orally Once a day , Taking Synthroid 75 MCG Tablet 1 tab(s) orally once a day , Taking Nystatin 423921 UNIT/ML Suspension 5ml orally 4 times a day till all gone for 2 days , Medication List reviewed and reconciled with the patient * Allergies: S ULFA, BIAXIN, YEAST DRUGS, traZODone, Doxycycline, Clindamycin, OMNICEF, Zithromax, Colchicine: stomach upset, Allopurinol: itching, fever blisters - Onset Date 07/19/2020, Augmentin: diarrhea. Objective: * Vitals: N urse: KJ, Pain: 8, Temp: 97.8, RR: 20, HR: 88, BP: 140/78, Ht: 64, Wt: 160.6, BMI:27.56. * Examination: G eneral Examination: General P leasant and Cooperative, NAD on RA,. Heart: R egular Rate and Rhythm, no murmur, rubs or gallops. Lungs: L CTAB, No wheezes, crackles or rhonchi, Good air movement,. Abdomen: S oft, NTND, BSNA, No organomegaly or peritoneal signs.. N o ankle swelling, weight noted, blood pressure normal. Assessment: * Assessment: 1. C ystitis - N30.90 (Primary) 2 . D ysuria - R30.0 Plan: * Treatment: Value Reference Range C ULTURE SEE NOTE A - * This lab was reviewed by Humble Abarca on 05/04/2025 at 16:16 PM EDT Notes: Check culture, reviewed urinalysis showing positive nitrates and leuks. Start Macrobid. Increase fluid intake. Reassured patient that she did not have any evidence of fluid overload or ankle swelling.??2.?Dysuria? Start Diflucan Tablet, 150 MG, 1 tablet, Orally, daily, 7 days, 7 Tablet, Refills 0.?LAB: Urinalysis (Collection Date & Time - 05/01/2025)* Value Reference Range C olor/Clarity yellow * L euk neg * N itrite positive * U robili 1.0 * P rotein 30mg * p H 5.0 * B lood neg * S p. Gr. 1.015 * K etone neg * B gita neg * G lucose 100mg Notes: Patient has a history of recurrent thrush, start Diflucan given antibiotic exposure? * Procedure Codes: 8 1002 URINALYSIS, Modifiers: QW * Follow Up: p rn * * Sign off status: Completed true * Provider: Ricardo Abarca MD Date: Generated for Cami ng/Faeliasg/eTransmitting on: 07/31/2024 04:05 PM EST History and Physical Notes * HPI (History of Present Illness) Category Sub-Category Detail Notes Category Not es gen [place], on the way back and an extra 3-hour ED to her because it stops for shopping. Feels like her ankles are puffy, also has back pain and feels like she has urinary problems and some dysuria. No hematuria. No fevers, no vomiting Examination Category Sub-Category Detail Notes Category Not es General Examination Heart: Regular Rate and Rhythm, no murmur, rubs or gallops No ankle swelling, weight noted, blood pressure normal Lungs: LCTAB, No wheezes, c rackles or rhonchi, Good air movement, Abdomen: Soft, NTND, BSNA, No organomegaly or peritoneal signs. General Pleasant and Coopera tive, NAD on RA,
--- OUTSIDE RECORDS SUMMARY | 2025-05-05 07:15 | XMS_ITS ---
Author Organization [facility] Address [address] [place] [address] Care Team Providers Care Countersinker Name Role Phone Librado Abarca Primary Care [...] stephanie trazodone traZODone Unknown Drug Allergy Active REASON FOR VISIT no better uti,back pain, urine frequency, ankle swelling Medications Medication SIG (Take, Route, Frequency, Duration) Notes Start Date End Date Status Indomethacin 25 MG 1 cap(s) orally 3 times a day as needed for gout; Duration: 30 days prn Active Align 4 MG 1 CAP(S) ORALLY [...] review and pick correct strength-formulati on from [employer] options. If intended option is not shown, discontinue and re-order from Quick Search* 09/28/2024 Active Xanax 0.25 MG 1 tab(s) orally every 8 hours prn Active Focalin XR 30 MG 1 CAP(S) ORALLY ONCE A DAY (IN THE MORNING) *Please review and pick correct strength-formulati on from [employer] options. If intended option is not shown, discontinue and re-order from Quick Search* Active Macrobid 100 MG 1 capsule with food Orally every 12 hrs; Duration: 5 day(s) 05/01/2025 Active Desvenlafaxine ER ( SUCCINATE) 100 MG 1 TAB(S) ORALLY ONCE A DAY *Please review and pick correct strength-formulati on from [employer] options. If intended option is not shown, [...] a day; Duration: 30 days Active Nystatin 569286 UNIT/ML 5ml orally 4 times a day till all gone for 2 days; Duration: 7 days 03/21/2025 Active Immunizations Vaccine Route Administration Date Status Comme nts Flublok IM Intramuscular 05/05/2025 Administered Vital Signs Temperature 98.2 degrees Fahrenheit 05/05/20 25 Blood pressure systolic 134 mm Hg 05/05/20 25 Blood pressure diastolic 80 mm Hg 025 Heart Rate 84 /min 05/05/2025 Height 64 in 05/05/2025 Weight 158 lbs 05/05/2025 BMI 27.12 kg/m2 05/05/2025 Encounters Encounter Location Date Provider Diagnosis [address] [address] 05/05/2025 Librado Abarca Urinary tract infection, site not specified N39.0 ; Unspecified Escherichia coli [E. coli] as the cause of diseases classified elsewhere B96.20 and Immunization(s) administered Z23 Assessments Encounter Date Diagnosis (ICD Code) Assessment Notes Treatment Notes Treatment Clinical Notes Section Notes 05/05/2025 Urinary tract infection, site not specified (ICD-10 - N39.0) Urinalysis is cleared. Exam completely normal. I think patient still having some residual feelings of illness, but I do not believe any change in therapy or additional therapy warranted. 05/05/2025 Unspecified Escherichia coli [E. coli] as the cause of diseases classified elsewhere (ICD-10 - B96.20) Went over culture results with patient. Finish out Macrobid. Continue good fluid intake. Weight has gone down 2 pounds even though she feels swollen 05/05/2025 Immunization(s) administered (ICD-10 - Z23) Plan Of Treatment Treatment Notes Assessment Notes Urinary tract infection, site not specif ied Urinalysis is cleared. Exam completely normal. I think patient still having some residual feelings of illness, but I do not believe any change in therapy or additional therapy warranted. Unspecified Escherichia coli [E. coli] as the cause of diseases classified elsewhere Went over culture results with patient. Finish out Macrobid. Continue good fluid intake. Weight has gone down 2 pounds even though she feels swollen Pending Test Test Name Order Date Urinalysis 05/05/2025 Next Appt Details Follow Up: prn, Reason: Progress Notes * Dmitriy MCCRARY MDOB:03/1970 (55 yo F)Acc No.[id number]:05/05/2025 Progress Notes Patient: Danette VERDEgio Gillis Provider: Ricardo Abarca MD :1970 A ge:55 Y S ex:Female Date:05/05/2025 Address:[address] [place] [address], [id number] Subjective: * Chief Complaints: * 1 . No better uti,back pain, urine frequency. 2. Ankle swelling. * HPI: g en: I saw patient Thursday, 4 days ago in the office. Urinalysis showed evidence of cystitis, placed on Macrobid Culture grew out 2 days later with 50,000 colonies of E. coli, pansensitive, including Macrobid. She presents today with similar complaints, states she is not feeling much better, chronic back pain and feels like she is swollen. * Medical History: M igraine headache, type II diabetes, Fibromyalgia, Depression, Edema, Allergic rhinitis, SICCA syndrome with recurrent thrush, Hypothyroidism, Gout, Normal mammogram and breast US in 11/04. * Surgical History: h ysterectomy , gallbladder 02/2018, dental inplants 05/2020, rt foot 01/06/2024, appendectomy 02/2025. * Hospitalization/Major Diagno stic Procedure: r ectal bleeding , Syncope 2015, H 03/11-. * Family History: F ather: , DM, CAD. M other: alive, hypothyroid. P aternal Grand Father: , HTN, PVD. P aternal Grand Mother: . M aternal Grand Father: , liver CA. Maternal Grand Mother: . M aternal aunt: alive, breast CA. S iblings: alive.?Children: daughter-stroke, diagnosed with Stroke. 1 sister(s) - healthy. 1 son(s) , 1 daughter(s) - healthy. . * Social History: S moking: no A re you a:: nonsmoker. R ecreational drug use: no. Exercise: no. Home smoke detector use: yes. Caffeine: no. Living Will: No. Alcohol: no. Sexually active: yes. 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 * Medications: T aking Xanax 0.25 MG Tablet 1 tab(s) orally every 8 hours , Notes to Pharmacist: prn, Taking Focalin XR 30 MG Capsule Extended Release 24 Hour 1 CAP(S) ORALLY ONCE A DAY (IN THE MORNING) , Notes to Pharmacist: *Please review and pick correct strength-formulation from Medispan options. If intended option is not shown, discontinue and re-order from Quick Search*, Taking Desvenlafaxine ER ( SUCCINATE) 100 MG TABLET, EXTENDED RELEASE 1 TAB(S) ORALLY ONCE A DAY , Notes to Pharmacist: *Please review and pick correct strength-formulation from Medispan options. If intended option is not shown, discontinue and re-order from Quick Search*, Taking Align 4 MG CAPSULE 1 CAP(S) ORALLY ONCE A DAY , Notes to Pharmacist: *Please review and pick correct strength-formulation from [employer] options. If intended option is not shown, discontinue and re-order from Quick Search*, Taking Terazosin HCl 10 MG Capsule 1 cap(s) orally bid , Taking Hyoscyamine Sulfate 0.125 MG Tablet 1 tab(s) sublingually every 8 hours , Taking Airsupra 90 MCG-80 MCG/INH AEROSOL 2 INH INHALED EVERY 6 HOURS PRN , Notes to Pharmacist: STOP Ventolin *Please review and pick correct strength-formulation from [employer] options. If intended option is not shown, [...] orally once a day , Taking Nystatin 111840 UNIT/ML Suspension 5ml orally 4 times a day till all gone for 2 days , Taking Macrobid 100 MG Capsule 1 capsule with food Orally every 12 hrs , Taking Diflucan 150 MG Tablet 1 tablet Orally daily , Medication List reviewed and reconciled with the patient * Allergies: S ULFA, BIAXIN, YEAST DRUGS, traZODone, Doxycycline, Clindamycin, OMNICEF, Zithromax, Colchicine: stomach upset, Allopurinol: itching, fever blisters - Onset Date 07/19/2020, Augmentin: diarrhea. Objective: * Vitals: N urse: dw, Pain: 6, Temp: 98.2, RR: 20, HR: 84, BP: 134/80, Ht: 64, Wt: 158, BMI:27.12. * Examination: G eneral Examination: General P leasant and Cooperative, NAD on RA,. Oral cavity: M oist membranes. Chest: n ormal shape and expansion. Heart: R egular Rate and Rhythm, no murmur, rubs or gallops. HEENT: p harynx and tonsils normal, TM's normal. Lungs: L CTAB, No wheezes, crackles or rhonchi, Good air movement,. Abdomen: S oft, NTND, BSNA, No organomegaly or peritoneal signs.. Neurologic Exam: n o focal signs,, normal sensation, strength, tone and reflexes,, Alert and oriented x 3. Skin: w ithout acute rashes. Peripheral pulses: n ormal (2+) bilaterally. Back: n ormal,. Extremities: n ormal ROM,, no clubbing, no edema,, no foot lesions,. neck s upple,, no thyromegaly,, no lymphadenopathy,. Psych N ormal Mood/Affect. diabetic foot exam V isual exam of foot performed: Y es. Neck s upple, no lymphadenopathy. General Appearance: N AD, pleasant. Assessment: * Assessment: 1. U rinary tract infection, site not specified - N39.0 (Primary) 2 . U nspecified Escherichia coli [E. coli] as the cause of diseases classified elsewhere - B96.20 3 . I mmunization(s) administered - Z23 Plan: * Treatment: 2. U nspecified Escherichia coli [E. coli] as the cause of diseases classified elsewhere Notes: Went over culture results with patient. Finish out Macrobid. Continue good fluid intake. Weight has gone down 2 pounds even though she feels swollen * Immunizations: Flublok : 0.5 mL (Dose No:1) (Route: Intramuscular) given by MAGEN Akbar on Left Deltoid (Immunization(s) administered) * Procedure Codes: 8 1002 URINALYSIS, Modifiers: QW , 52540 Flublok, 49745 ADMINISTRATION IMMUNIZATION ONE VACCINE * Follow Up: p rn * * Sign off status: Completed true * Provider: Ricardo Abarca MD Date: Generated for Printi ng/Maldonado/eTransmitting on: 07/31/2024 04:06 PM EST History and Physical Notes * HPI (History of Present Illness) Category Sub-Category Detail Notes Category Not es gen I saw patient Thursday, 4 days ago in the office. Urinalysis showed evidence of cystitis, placed on Macrobid Culture grew out 2 days later with 50,000 colonies of E. coli, pansensitive, including Macrobid. She presents today with similar complaints, states she is not feeling much better, chronic back pain and feels like she is swollen. Examination Category Sub-Category Detail Notes Category Not es General Examination HEENT: pharynx and tonsils normal, TM's normal Neck supple, no lymphaden opathy Heart: Regular Rate and Rhy thm, no murmur, rubs or gallops Lungs: LCTAB, No wheezes, c rackles or rhonchi, Good air movement, Abdomen: Soft, NTND, BSNA, No organomegaly or peritoneal signs. Extremities: normal ROM,, no club shereen, no edema,, no foot lesions, General Appearance: NAD, pleasant Skin: without acute rashes Neurologic Exam: no focal signs,, nor mal sensation, strength, tone and reflexes,, Alert and oriented x 3 Oral cavity: Moist membranes Peripheral pulses: normal (2+) bilatera lly Back: normal, Chest: normal shape and exp ansion neck supple,, no thyromeg edwige,, no lymphadenopathy, General Pleasant and Coopera tive, NAD on RA, Psych Normal Mood/Affect diabetic foot exam Visual exam of foot performed :: Yes
--- OUTSIDE RECORDS SUMMARY | 2025-05-17 09:45 | XMS_ITS ---
Author Organization [facility] GIACOMO Address [address] [place] [address] Care Team Providers Care Topstitcher Zigzag Name Role Phone Librado Abarca Primary Care Provider Caro Worley Unavailable [phone] Allergies Allergen (clinical drug ingredient) Drug/Non Drug Allergy documented on EMR Reaction Allergy Type Onset Date Status BIAXIN (uncoded) Unknown Allergy Act stephanie OMNICEF (uncoded) Unknown Allergy Ac tive SULFA (uncoded) Unknown Allergy Acti ve YEAST DRUGS (uncoded) Unknown Allergy Active amoxicillin / clavulanate Augmentin diarrhea Drug Allergy Active azithromycin Zithromax Unknown Drug Allergy Acti ve doxycycline Doxycycline Unknown Drug Allergy Act stephaine allopurinol Allopurinol itching, fever blisters Drug Allergy 07/19/2020 Active colchicine Colchicine stomach upset Drug Allergy A ctive clindamycin Clindamycin Unknown Drug Allergy Act stephanie trazodone traZODone Unknown Drug Allergy Active Results Component Value Reference Range Notes Rapid Strep Reviewed date:05/17/2025 03:30:07 PM Interpretation:Positive Performing Lab: Notes/Report: Positive Rapid Covid/Flu A-B Combo Reviewed date:05/17/2025 04:59:44 PM Interpretation: Performing Lab: Notes/Report: Rapid Covid neg Flu A neg Flu B neg REASON FOR VISIT body aches , sore throat , wheezing , cough Medications Medication SIG (Take, Route, Frequency, Duration) Notes Start Date End Date Status Triamterene 50 MG 1 capsule Orally Once a day; Duration: 90 days Active Indomethacin 25 MG 1 cap(s) orally 3 times a day as needed for gout; Duration: 30 days prn Active Pilocarpine HCl 7.5 MG 1 TAB(S) ORALLY twice a day; Duration: 90 days Active Airsupra 90 MCG-80 MCG/INH 2 INH INHALED EVERY 6 HOURS PRN; Duration: 30 DAYS STOP Ventolin *Please review and pick correct strength-formulati on from Musical Sneakersan options. If intended option is not shown, discontinue and re-order from Quick Search* 09/28/2024 Active Hyoscyamine Sulfate 0.125 MG 1 tab(s) sublingually every 8 hours; Duration: 30 day(s) Active Desvenlafaxine ER ( SUCCINATE) 100 MG 1 TAB(S) ORALLY ONCE A DAY *Please review and pick correct strength-formulati on from Musical Sneakersan options. If intended option is not shown, discontinue and re-order from Quick Search* Active Align 4 MG 1 CAP(S) ORALLY ONCE A DAY *Please review and pick correct strength-formulati on from Musical Sneakersan options. If intended option is not shown, discontinue and re-order from Quick Search* Active Xanax 0.25 MG 1 tab(s) orally every 8 hours prn Active Focalin XR 30 MG 1 CAP(S) ORALLY ONCE A DAY (IN THE MORNING) *Please review and pick correct strength-formulati on from NotesFirst options. If intended option is not shown, discontinue and re-order from Quick Search* Active Terazosin HCl 10 MG 1 cap(s) orally bid 01/07/2017 Active Ondansetron 4 MG 1 tablet on the tongue and allow to dissolve as needed for nausea Orally every 8 hours; Duration: 4 days 05/17/2025 Active Promethazine-DM 6.25-15 MG/5ML 5 mL as needed Orally every 6 hrs; Duration: 7 days 05/17/2025 Active Amoxicillin 500 MG 1 capsule Orally twice a day; Duration: 10 days 05/17/2025 Active Synthroid 75 MCG 1 tab(s) orally once a day; Duration: 30 days Active Vital Signs Temperature 99.9 degrees Fahrenheit 05/17/20 25 Blood pressure systolic 138 mm Hg 05/17/20 25 Blood pressure diastolic 90 mm Hg 025 Heart Rate 80 /min 05/17/2025 Height 64 in 05/17/2025 Weight 158 lbs 05/17/2025 BMI 27.12 kg/m2 05/17/2025 Encounters Encounter Location Date Provider Diagnosis [address] [address] 05/17/2025 Caro Worley Fever, unspecified R50.9 ; Strep pharyngitis J02.0 ; Acute cough R05.1 and Nausea R11.0 Assessments Encounter Date Diagnosis (ICD Code) Assessment Notes Treatment Notes Treatment Clinical Notes Section Notes 05/17/2025 Fever, unspecified (ICD-10 - R50.9) 05/17/2025 Strep pharyngitis (ICD-10 - J02.0) Discussed infectious precautions, no school or return to work until afebrile for 24 hours. Encourage oral fluid intake and discussed fever treatment. Discussed importance of completing all antibiotics and reasons for followup. 05/17/2025 Acute cough (ICD-10 - R05.1) 05/17/2025 Nausea (ICD-10 - R11.0) Plan Of Treatment Medication Medication Name Sig Start Date Stop Date Notes Ondansetron 4 MG 1 tablet on the tong ue and allow to dissolve as needed for nausea Orally every 8 hours; Duration: 4 days 05/17/2025 Promethazine-DM 6.25-15 MG/5ML 5 mL as n eeded Orally every 6 hrs; Duration: 7 days 05/17/2025 Amoxicillin 500 MG 1 capsule Orally twi ce a day; Duration: 10 days 05/17/2025 Next Appt Details Follow Up: prn, Reason: Progress Notes * Dmitriy MCCRARY MDOB:03/1970 (55 yo F)Acc No.[id number]:05/17/2025 Progress Notes Patient: Dmitriy VERDE Provider: CELIO Jiang :1970 A ge:55 Y S ex:Female Date:05/17/2025 Address:[address] [place] [id number] Pcp:Librado Abarca Subjective: * Chief Complaints: * 1 . Body aches , sore throat , wheezing , cough. * HPI: E NT/respiratory: 55 yr old female presents today with acute onset sore throat, dry cough and fever with body aches and chills. 55 year old female presents with c/o sore throat. c/o cough. c/o fever. Denies : nasal congestion. D enies : ear pain. * ROS: C ONSTITUTIONAL: Loss of appetite y es. F ever y es. ? D ERMATOLOGY: no R sincere. G ASTROENTEROLOGY: Nausea y es. n o V omiting. n o D iarrhea.? * Medical History: M igraine headache, type [...] *Please review and pick correct strength-formulation from Musical Sneakersan options. If intended option is not shown, discontinue and re-order from Quick Search*, Taking Desvenlafaxine ER ( SUCCINATE) 100 MG TABLET, EXTENDED RELEASE 1 TAB(S) ORALLY ONCE A DAY , Notes to Pharmacist: *Please review and pick correct strength-formulation from Musical Sneakersan options. If intended option is not shown, discontinue and re-order from Quick Search*, Taking Align 4 MG CAPSULE 1 CAP(S) ORALLY ONCE A DAY , Notes to Pharmacist: *Please review and pick correct strength-formulation from Musical Sneakersan options. If intended option is not shown, discontinue and re-order from Quick Search*, Taking Terazosin HCl 10 MG Capsule 1 cap(s) orally bid , Taking Hyoscyamine Sulfate 0.125 MG Tablet 1 tab(s) sublingually every 8 hours , Taking Airsupra 90 MCG-80 MCG/INH AEROSOL 2 INH INHALED EVERY 6 HOURS PRN , Notes to Pharmacist: STOP Ventolin *Please review and pick correct strength-formulation from CompBluespan options. If intended option is not shown, [...] 1 tab(s) orally once a day , Discontinued Nystatin 394511 UNIT/ML Suspension 5ml orally 4 times a day till all gone for 2 days , Discontinued Macrobid 100 MG Capsule 1 capsule with food Orally every 12 hrs , Discontinued Diflucan 150 MG Tablet 1 tablet Orally daily , Medication List reviewed and reconciled with the patient * Allergies: S ULFA, BIAXIN, YEAST DRUGS, traZODone, Doxycycline, Clindamycin, OMNICEF, Zithromax, Colchicine: stomach upset, Allopurinol: itching, fever blisters - Onset Date 07/19/2020, Augmentin: diarrhea. Objective: * Vitals: N urse: dw, Pain: 0, Temp: 99.9, RR: 20, HR: 80, BP: 138/90, Ht: 64, Wt: 158, BMI:27.12. * Examination: E NT/Respiratory: General Appearance : w ell nourished and hydrated, alert.? Ears: a uditory canals normal bilaterally, tympanic membranes normal bilaterally. Nose : n ormal, no lesions. Oral Cavity e rythema without exudate on pharynx. Neck : m ildly tender anterior adenopathy. Heart : R RR, normal S1 S2, no murmurs. Lungs : c lear to auscultation bilaterally, no crackles or wheezes. Abdomen : s oft, NT/ND, BS present. Skin : c lear without rashes. Assessment: * Assessment: 1. S trep pharyngitis - J02.0 (Primary) 2 . F ever, unspecified - R50.9? 3. A cute cough - R05.1 4 . N ausea - R11.0 Plan: * Treatment: 2. F ever, unspecified L AB: Rapid Strep (Collection Date & Time - 05/17/2025) P ositive ?LAB: Rapid Covid/Flu A-B Combo (Collection Date & Time - 05/17/2025)* Value Reference Range R apid Covid neg * F pj A neg * F pj B neg * White, Gerardo R 05/17/2025 0 3:14:34 PM EST >This lab was reviewed by Caro Worley on 05/17/2025 at 16:59 PM EST 3.?Acute cough? Start Promethazine-DM Syrup, 6.25-15 MG/5ML, 5 mL as needed, Orally, every 6 hrs, 7 days, 140 ML, Refills 0.??4.?Nausea? Start Ondansetron Tablet Disintegrating, 4 MG, 1 tablet on the tongue and allow to dissolve as needed for nausea, Orally, every 8 hours, 4 days, 12 Tablet, Refills 0.?? * Procedure Codes: 8 7636 RAPID COVID/FLU A & B COMBO, Modifiers: QW , 62858 RAPID STREP, Modifiers: QW * Follow Up: p rn * * Sign off status: Completed true * Provider: CELIO Jiang Date: 07/17/2024 Generated for Cami weaver/Maldonado/eTdreasmitting on: 07/31/2024 04:06 PM EST History and Physical Notes * HPI (History of Present Illness) Category Sub-Category Detail Notes Category Not es ENT/respiratory sore throat ear pain cough fever nasal congestion Examination Category Sub-Category Detail Notes Category Not es ENT/Respiratory Oral Cavity erythema without exudate on pharynx Ears: auditory canals norm al bilaterally, tympanic membranes normal bilaterally Neck : mildly tender anteri or adenopathy Heart : RRR, normal S1 S2, n o murmurs Lungs : clear to auscultatio n bilaterally, no crackles or wheezes Abdomen : soft, NT/ND, BS pres ent General Appearance : well nourished and hydrated, alert Nose : normal, no lesions Skin : clear without rashes
--- OUTSIDE RECORDS SUMMARY | 2025-05-23 09:45 | XMS_ITS ---
Author Organization [facility] GIACOMO Address [address] [place] [address] Care Team Providers Care Flake Cutter Operator Name Role Phone Librado Abarca Primary Care [...] stephanie trazodone traZODone Unknown Drug Allergy Active Reason For Referral Reason MRI [facility]bar eamon at [facility] please Diagnosis 1 Sciatica, left side (M54.32) Referral Organization [facility]ACOM[facility] Referring Provider First Name Librado Referring Provider Last Name Tevin Referring Provider Speciality Internal M edicine General Notes Dhara Zafar 05/2025 04:21:18 PM > faxed to [facility] and they will call her Referral Priority Routine REASON FOR VISIT low back pain radiating down lt leg Medications Medication SIG (Take, Route, Frequency, Duration) Notes Start Date End Date Status Ondansetron 4 MG 1 tablet on the tongue and allow to dissolve as needed for nausea Orally every 8 hours; Duration: 4 days 05/17/2025 Active Pilocarpine HCl 7.5 MG TAKE 1 TABLET BY MOUTH TWICE DAILY; Duration: 90 Active Indomethacin 25 MG 1 cap(s) orally 3 times a day as needed for gout; Duration: 30 days prn Active Terazosin HCl 10 MG 1 cap(s) orally bid 01/07/2017 Active Hyoscyamine Sulfate 0.125 MG 1 tab(s) sublingually every 8 hours; Duration: 30 day(s) Active Airsupra 90 MCG-80 MCG/INH 2 INH INHALED EVERY 6 HOURS PRN; Duration: 30 DAYS STOP Ventolin *Please review and pick correct strength-formulati on from Aula 7an options. If intended option is not shown, discontinue and re-order from Quick Search* 09/28/2024 Active Synthroid 75 MCG 1 tab(s) orally once a day; Duration: 30 days Active Desvenlafaxine ER ( SUCCINATE) 100 MG 1 TAB(S) ORALLY ONCE A DAY *Please review and pick correct strength-formulati on from Aula 7an options. If intended option is not shown, discontinue and re-order from Quick Search* Active Align 4 MG 1 CAP(S) ORALLY ONCE A DAY *Please review and pick correct strength-formulati on from Aula 7an options. If intended option is not shown, discontinue and re-order from Quick Search* Active Xanax 0.25 MG 1 tab(s) orally every 8 hours prn Active Focalin XR 30 MG 1 CAP(S) ORALLY ONCE A DAY (IN THE MORNING) *Please review and pick correct strength-formulati on from Aula 7an options. If intended option is not shown, discontinue and re-order from Quick Search* Active Diclofenac Sodium 75 MG 1 tab(s) orally 2 times a day for seven days, then twice daily as needed; Duration: 30 day(s) 05/23/2025 Active predniSONE 20 MG 3 tabs orally once a day for two days, then 2 daily for 2 days, then one daily for two days; Duration: 6 day(s) 05/23/2025 Active Problems Problem Type SNOMED Code ICD Code Onset Dates Problem Status W/U Status Risk Notes Problem Left side sciatica (755947933853698 ) Sciatica, left side (M54.32) Active confirmed Problem Intermittent urinary incontinence (428351692) Intermittent urinary incontinence (R32) Active confirmed Vital Signs Temperature 97.9 degrees Fahrenheit 05/23/20 25 Blood pressure systolic 142 mm Hg 05/23/20 25 Blood pressure diastolic 100 mm Hg 025 Heart Rate 78 /min 05/23/2025 Height 64 in 05/23/2025 Weight 158 lbs 05/23/2025 BMI 27.12 kg/m2 05/23/2025 Encounters Encounter Location Date Provider Diagnosis [address] [address] 05/23/2025 Librado Abarca Sciatica, left side M54.32 and Intermittent urinary incontinence R32 Assessments Encounter Date Diagnosis (ICD Code) Assessment Notes Treatment Notes Treatment Clinical Notes Section Notes 05/23/2025 Sciatica, left side (ICD-10 - M54.32) 05/23/2025 Intermittent urinary incontinence (ICD-10 - R32) I am concerned with this pattern his left-sided sciatica and the intermittent urinary incontinence. Imaging is mandated. Trial of prednisone and a different anti-inflammator y. She has an appointment to see me in a couple of days and we will make sure neurologic issues have not progressed at that point. Plan Of Treatment Medication Medication Name Sig Start Date Stop Date Notes Diclofenac Sodium 75 MG 1 tab(s) orally 2 times a day for seven days, then twice daily as needed; Duration: 30 day(s) 05/23/2025 predniSONE 20 MG 3 tabs orally once a day for two days, then 2 daily for 2 days, then one daily for two days; Duration: 6 day(s) 05/23/2025 Treatment Notes Assessment Notes Intermittent urinary incontinence I am concerned with this pattern his left-sided sciatica and the intermittent urinary incontinence. Imaging is mandated. Trial of prednisone and a different anti-inflammatory. She has an appointment to see me in a couple of days and we will make sure neurologic issues have not progressed at that point. Pending Test Test Name Order Date MRI : Lumbar Spine w/o contrast 05/23/20 25 Referrals Referral Date Details 05/23/2025 05/23/2025, MRI Lumb ar eamon at [facility] please Next Appt Details Follow Up: prn, Reason: Progress Notes * Dmitriy MCCRARY MDOB:03/1970 (55 yo F)Acc No.[id number]:05/23/2025 Progress Notes Patient: Dmitriy VERDE Provider: Ricardo Abarca MD :1970 A ge:55 Y S ex:Female Date:05/23/2025 Address:[address] [place], [place] [id number] Subjective: * Chief Complaints: * 1 . Low back pain radiating down lt leg. * HPI: g en: Over the past 4 days has had increasing problems with left back pain radiating down into the left buttock and it is now going down the back of her leg into the lateral aspect of her sandoval and localizing to a spot just above her left ankle. It feels burning. She has a sensation that occasionally her leg gives out. A couple of times she has been unable to make it to the restroom and has had lost urinary control, mostly because she thinks it is a time issue because she is in so much pain it takes her a while to get to the bathroom but she also thinks she may have actually lost urinary control. Has not lost control of stool No falls, no injury noted, has been moving a lot of stuff around in her home and doing some twisting. Had a CT scan of abdomen and pelvis when she had appendicitis this summer that showed evidence of significant DJD. Has never had back surgery or been diagnosed with sciatica. * Medical History: M igraine headache, type [...] , 1 daughter(s) - healthy. . * Medications: T aking Xanax 0.25 MG Tablet 1 tab(s) orally every 8 hours , Notes to Pharmacist: prn, Taking Focalin XR 30 MG Capsule Extended Release 24 Hour 1 CAP(S) ORALLY ONCE A DAY (IN THE MORNING) , Notes to Pharmacist: *Please review and pick correct strength-formulation from Aula 7an options. If intended option is not shown, discontinue and re-order from Quick Search*, Taking Desvenlafaxine ER ( SUCCINATE) 100 MG TABLET, EXTENDED RELEASE 1 TAB(S) ORALLY ONCE A DAY , Notes to Pharmacist: *Please review and pick correct strength-formulation from Aula 7an options. If intended option is not shown, discontinue and re-order from Quick Search*, Taking Align 4 MG CAPSULE 1 CAP(S) ORALLY ONCE A DAY , Notes to Pharmacist: *Please review and pick correct strength-formulation from Aula 7an options. If intended option is not shown, discontinue and re-order from Quick Search*, Taking Terazosin HCl 10 MG Capsule 1 cap(s) orally bid , Taking Hyoscyamine Sulfate 0.125 MG Tablet 1 tab(s) sublingually every 8 hours , Taking Airsupra 90 MCG-80 MCG/INH AEROSOL 2 INH INHALED EVERY 6 HOURS PRN , Notes to Pharmacist: STOP Ventolin *Please review and pick correct strength-formulation from Aula 7an options. If intended option is not shown, discontinue and re-order from Quick Search*, Taking Synthroid 75 MCG Tablet 1 tab(s) orally once a day , Taking Ondansetron 4 MG Tablet Disintegrating 1 tablet on the tongue and allow to dissolve as needed for nausea Orally every 8 hours , Taking Pilocarpine HCl 7.5 MG Tablet TAKE 1 TABLET BY MOUTH TWICE DAILY , Taking Indomethacin 25 MG Capsule 1 cap(s) orally 3 times a day as needed for gout , Notes to Pharmacist: prn, Discontinued Triamterene 50 MG Capsule 1 capsule Orally Once a day , Discontinued Amoxicillin 500 MG Capsule 1 capsule Orally twice a day , Discontinued Promethazine-DM 6.25-15 MG/5ML Syrup 5 mL as needed Orally every 6 hrs , Medication List reviewed and reconciled with the patient * Allergies: S ULFA, BIAXIN, YEAST DRUGS, traZODone, Doxycycline, Clindamycin, OMNICEF, Zithromax, Colchicine: stomach upset, Allopurinol: itching, fever blisters - Onset Date 07/19/2020, Augmentin: diarrhea. Objective: * Vitals: N urse: dw, Pain: 10, Temp: 97.9, RR: 20, HR: 78, BP: 142/100, Ht: 64, Wt: 158, BMI:27.12. * Examination: G eneral Examination: Guanakito perez is able to sit comfortably on the exam table but movement or twisting of her back causes some pain. No edema in either leg, good distal pulses. Foot deformities are previously noted and unchanged. Reflexes are normal in the knees but slightly reduced in the left ankle jerk. Motor strength is reduced with foot dorsiflexion on the left significantly. Leg extension also reduced strength. Hip flexion is normal in regards to strength and range of motion. Straight leg raise testing is negative. Assessment: * Assessment: 1. S ciatica, left side - M54.32 (Primary) 2 . I ntermittent urinary incontinence - R32 Plan: * Treatment: ? Referral To: ?Reason:MRI Lumbar eamon at [facility] please 2.?Intermittent urinary incontinence?Imaging: MRI : Lumbar Spine w/o contrast* Notes: I am concerned with this pattern his left-sided sciatica and the intermittent urinary incontinence. Imaging is mandated. Trial of prednisone and a different anti-inflammatory. She has an appointment to see me in a couple of days and we will make sure neurologic issues have not progressed at that point.?? * Follow Up: p rn * * Sign off status: Completed true * Provider: Ricardo Abarca MD Date: 07/23/2024 Generated for Cami weaver/Maldonado/eTransmitting on: 07/31/2024 04:04 PM EST History and Physical Notes * HPI (History of Present Illness) Category Sub-Category Detail Notes Category Not es gen Over the past 4 days has had increasing problems with left back pain radiating down into the left buttock and it is now going down the back of her leg into the lateral aspect of her sandoval and localizing to a spot just above her left ankle. It feels burning. She has a sensation that occasionally her leg gives out. A couple of times she has been unable to make it to the restroom and has had lost urinary control, mostly because she thinks it is a time issue because she is in so much pain it takes her a while to get to the bathroom but she also thinks she may have actually lost urinary control. Has not lost control of stool No falls, no injury noted, has been moving a lot of stuff around in her home and doing some twisting. Had a CT scan of abdomen and pelvis when she had appendicitis this summer that showed evidence of significant DJD. Has never had back surgery or been diagnosed with sciatica. Examination Category Sub-Category Detail Notes Category Not es General Examination He is able to sit comfortably on the exam table but movement or twisting of her back causes some pain. No edema in either leg, good distal pulses. Foot deformities are previously noted and unchanged. Reflexes are normal in the knees but slightly reduced in the left ankle jerk. Motor strength is reduced with foot dorsiflexion on the left significantly. Leg extension also reduced strength. Hip flexion is normal in regards to strength and range of motion. Straight leg raise testing is negative. Consultation Request Notes Referral Date Referring Provider Referred Provider Not es 05/23/2025 Librado Abarca , MRI Lumbar a sap at [facility] please
--- OUTSIDE RECORDS SUMMARY | 2025-05-25 06:30 | XMS_ITS ---
Author Organization [facility] D GIACOMO Address [address] [place] [address] Care Team Providers Care Project Program Manager Name Role Phone Librado Abarca Primary Care Provider REASON FOR VISIT med ck, Wellness update Encounters Encounter Location Date Provider Diagnosis [place] [address] [address] 05/25/2025 Librado Abarca Plan Of Treatment No Information Progress Notes * Dmitriy MCCRARY MDOB:03/1970 (55 yo F)Acc No.[id number]:05/25/2025 Progress Notes Patient: Dmitriy VERDE Provider: Ricardo Abarca MD :1970 A ge:55 Y S ex:Female Date:05/25/2025 Address:[facility] [address] [id number] Subjective: * Chief Complaints: * 1 . Med ck. 2. Wellness update. * Medical History: Objective: * Vitals: Assessment: Plan: * Treatment: * * Electronic signature of John Abarca MD FAAP on 05/31/2025 at 04:05 PM EST Sign off status: Pending * Provider: Ricardo Abarca MD Date: 07/25/2024 Generated for Printi ng/Faxing/eTransmitting on: 07/31/2024 04:05 PM EST
--- NOTE | 2025-05-31 14:42 | MR_ITS ---
FINAL REPORT CLINICAL HISTORY: low back pain that radiates down the left leg COMPARISON: None FINDINGS: Multiplanar MR imaging of the lumbar spine was performed without contrast. On the sagittal T2-weighted images, there is abnormal decreased signal at the L3-4, L4-5, and L5-S1 disc levels. The vertebrae are of normal height. The vertebral alignment is normal. L1-2: There is no significant canal stenosis or neural foraminal narrowing. L2-3: There is no significant canal stenosis or neural foraminal narrowing. L3-4: Moderate diffuse disc bulge. Mild spinal canal compromise. Moderate bilateral neural foraminal narrowing. L4-5: Mild diffuse disc bulge. Right posterolateral disc protrusion. Moderate to high-grade right and moderate left neural foraminal narrowing. L5-S1: Localized signal abnormality posterior to the L5 vertebra eccentric to the left well seen on images 10 of series 7 and 21 of series 8 appears to represent extruded disc fragment. Unclear if this arises from the L4-5 or L5-S1 level, favor L5-S1. Left posterolateral disc protrusion with mild left neural foraminal narrowing. IMPRESSION: Signal abnormality posterior left side L5 vertebra probably extruded disc fragment arising from the L5-S1 disc level. Neural foraminal narrowing bilaterally at L3-4 and on the right at L4-5. Reviewed, Interpreted and Dictated by Sammy Burch MD Transcribed by Cara Cameron Authenticated and [facility]
--- OUTSIDE RECORDS SUMMARY | 2025-05-31 16:04 | XMS_ITS | Clinical Summary ---
Author Organization [facility] Address [address] [place] [address] Care Team Providers Care Batch Analyst Name Role Phone Librado Abarca MD Primary Care Provider [phone] Allergies Active Allergy Reactions Criticality Noted Date [...] saw Hernán Reagan MD. 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 She has taken gabapentin 11. She [...] saw Hernán Reagan MD. 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 She has taken gabapentin 11. She [...] saw Hernán Reagan MD. 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 She has taken gabapentin 11. She [...] she had foot surgery, She has seen [facility], Febuxostat (side effects) She has tried [...] she had foot surgery, She has seen [facility] Studies reviewed included: 03/11/24: CBC ok, [...] Gold Plus; Future Hepatitis Panel, Acute; Future Family History Medical History Relation Name Comments [...] Description 08/11/2025 10:00 AM EST Office Visit [facility] [address] [place] [id number] Jackie Webber APRN [address] [facility] [address] [place], [place] [id number] 02/01/2026 10:30 AM EDT Office Visit [facility] [address] [address] Liana Brock MD [address] [address] Health Maintenance Due Date Last Done Comments COLON CANCER SCREENING 5 YEA R SIGMOIDOSCOPY [address] COLONOGRAPHY 2014 FECAL OCCULT BLOOD TEST 2014 FIT Testing (1 year) 2014 ANNUAL PHYSICAL 04/18/2018 Pneumococcal Vaccine 50+ (1 of 1 - PCV) 2019 ZOSTER VACCINE (1 of 2) 2019 COLOGUARD 05/12/2024 05/12/2021 INFLUENZA VACCINE 02/10/2025 04/29/2022, , 06/19/2016 Annual Gynecologic Pelvic an [...] fat lobule. No suspicious abnormality is identified. us Librado Abarca MD IMG MAMMOGRAPHY ORDERABLES F inal Result * Hepatitis Panel, Acute (06/16/2024 3:11 PM EST) Hepatitis B Surface Ag Non-Reacti ve Non-Reacti ve 06/17/2024 4:02 AM EST [facility] Hep A IgM Non-Reacti ve Non-Reacti ve 06/17/2024 4:02 AM EST [facility] Hep B C IgM Non-Reacti ve Non-Reacti ve 06/17/2024 4:02 AM EST [facility] Hepatitis C Ab Non-Reacti ve Non-Reacti ve 06/17/2024 4:02 AM EST [facility] Blood Venipuncture / Unknown 06/16/2024 3:11 PM EST 06/16/2024 3:11 PM EST Narrative [facility] - 06/17/2024 4:02 AM EST Results may be falsely decreased if patient taking Biotin. Obdulio De Paz DO LAB BLOOD ORDERABLES F inal Result [facility]
[address] [place] [address], from Last 3 Months or Most Recently Relevant to Health Maintenance Insurance EMPLOYEE Care Teams Batch Analyst Relationship Specialty Start Date End Date Librado Abarca MD [address] [place] [address] PCP - General Adolescent Medicine 06/16/24
--- OUTSIDE RECORDS SUMMARY | 2025-05-31 16:05 | XMS_ITS | Clinical Summary ---
Author Organization [facility] Address [address] [place] [address] Phone Care Team Providers Care Fishing Hand Name Role Phone Home Infusion DD, [facility] Unavailable Unavailab le Conditions or Problems Problem Name Problem Code Onset Date Status Entry Date Provider Comment Standard Description Annotate Fatigue 78286064 (SNOMED CT) Active 09/13 Silvio Thomas MD Fatigue Sicca syndrome 91214723 (SNOMED CT) Active 08/29 Silvio Thomas MD Sjogren's syndrome Acute cystitis w/o hematuria 64425473 (SNOMED CT) Active 08/16 Laura Che Urinary tract infectious disease Benign Essential Hypertension 03791372 (SNOMED CT) Active 08/16 Laura Che Benign hypertension Frequency of urination 147955753 (SNOMED CT) Active 08/16 Laura Che Increased frequency of urination Hypokalemia 27800440 (SNOMED CT) Active 08/16 Laura Che Hypokalemia Candidiasis, oral 62623815 (SNOMED CT) Active 08/16 Laura Che Candidiasis of mouth Medications Medication Instructions Start Date Stop Date Generic Name [facility] Provider PRISTIQ 50 MG [id number]-ZDW take 1 tablet by mouth daily DESVENLAFAXINE SUCCINATE 82116580572 Carmen Beverley VALTREX 1 GM TABS take 1 tablet by mouth daily VALACYCLOVIR HCL 71141766686 Carmen Beverley AMITRIPTYLINE HCL 100 MG TABS take 1 tablet by mouth daily AMITRIPTYLINE HCL 54560915278 Carmen Beverley VIVELLE-DOT 0.0375 MG/24HR PTTW apply transdermally twice weekly ESTRADIOL 27779478428 Carmen [place] TERAZOSIN HCL CAPSULE TERAZOSIN HCL CAPS [phone] Carmen Lowery PILOCARPINE HCL TABS PILOCARPINE HCL TABS 98303043318 Carmen [place] SYNTHROID TABS LEVOTHYROXINE SODIUM TABS 09109570996 Carmen [place] SPIRONOLACTONE 100 MG TABS take 1 tablet by mouth daily SPIRONOLACTONE 15935452537 Carmen Lowery FOCALIN XR 30 MG FO43G-RBQ take 1 capsule by mouth daily DEXMETHYLPHENIDATE HCL 53515909248 Carmen [place] Medications Administered No information available. Allergies, Adverse [...] port al update - Email Push, [facility] ... PAT E-MAIL [email or web address] patient's e-mail address Lab Report: [place] T-Lymph-C D4, Immunoglobulins A/E/G/M, Serum, Sjogren' ... [...] External Other: [facility] ... PATPORTALPIN Active This talon l be used to establish a PIN number for patients to register in the Patient Portal. Plan of Care Type Date Detail Pending order Free T4 Pending order TSH Pending order CARLOS A Pending order Immunoglobulins Quant (IGG,IGA,IGE,IGM) Pending order CD4 Pending order Other Procedures Code Procedure Name Date Entry Date CPT-59304 Free T4 [id number] TSH CPT-44259 CARLOS A CPT-69364 Immunoglobulins Quant (IGG,IGA,IGE,IGM) 2 CPT-87173 CD4 CPT-LAB Other Vital Signs Date Name [...]
--- OUTSIDE RECORDS SUMMARY | 2025-05-31 16:06 | XMS_ITS | Clinical Summary ---
Author Organization [facility] Address [address] [place] [address] Care Team Providers Care Vegetable Loader Machine Operator Name Role Phone Librado Abarca MD Primary Care Provider [phone] Abel Alexander MD Unavailable [phone] Allergies Active Allergy Reactions Criticality Noted Date [...] 2019 [facility]-Zoster Vaccines (1 of 2) 2019 [id number]-KODTG-59 Vaccine (4 - 2024- season) 2025 06/23/2021, 12/25/2020, 11/16/2020 [facility]-Influenza Vaccine (#1) 03/13/202504/29, [...] 5.8(H) <5.7 % 10/11/2024 3:32 PM EDT [facility] Blood Venous blood specimen / Unknown Venipuncture / Unknown 10/11/2024 1:16 PM EDT 10/11/2024 1:16 PM EDT Narrative [facility] - 10/11/2024 3:32 PM EDT HA1C Interpretive Data: Diagnosis of Diabetes: Diabetic > or = 6.5% Pre-diabetic 5.7 to 6.4% Non-diabetic < or = 5.6% Glycemic Targets for Type I and Type II Diabetics: Non- Adults <7.0% Adults <6.0% Children and Adolescents <7.5% Source: [place] [employer]. Standards of medical care in diabetes,2017. Diabetes Care.2017:40 (suppl 1):S1-S135. HbA1c assay performed by an ion-exchange chromatography method that is certified traceable to the DCCT. us Linette Edmond MD LAB BLOOD ORDERABLES Final Resu lt [facility] [address] [place] [address] from Last 3 Months or Most Recently Relevant to Health Maintenance Insurance ANTH Care Teams Vegetable Loader Machine Operator Relationship Specialty Start Date End Date Librado Abarca MD [address] [place] [address] PCP - General Internal Medicine 04/26/24 Abel Alexander MD [address] [place] [address] Resident Neurology 10/11/24
--- OUTSIDE RECORDS SUMMARY | 2025-05-31 16:06 | XMS_ITS | Data Portability ---
Author Organization EULOGIO CATHERINE Kam [place] CLOSED Address [address] [facility] [address] [place] [address] Care Team Providers Care Classroom Monitor Name Role Phone JAIRO GROVES Internal Medicine Assessment Encounter Date Assessment Date Assessment LastModified by Organization Details LastModified Time 06/27/2022 06/27/2022 Assessment: 52-year-old female with rare left breast clear nipple discharge, benign breast imaging. Plan: Rare clear nipple discharge is not uncommon and also not concerning. The patient takes multiple medications that are correlated with nipple discharge. The patient is instructed to avoid compressing or squeezing her nipple if or when this clear nipple discharge occurs. The patient complained of some right lateral breast pain/tenderness. This could be musculoskeletal but it could also be attributed to an ill fitting bra or even idiopathic. The patient is instructed to ensure her bras proper fitting and if this does not improve the pain and she can consider taking vitamin D supplementation. Although caffeine is the most common cause of breast pain, the patient notes that she does not take any caffeine orally. The patient notes that she is worried and anxious due to her family history of breast cancer in her maternal aunt and maternal first cousin. There is currently no imaging or clinical findings that are worrisome. The patient also notes that her sister was diagnosed with a rare type of artery malformation however, I do not feel this would be something to be concerned about in regards to her breasts. I urged her to discuss this further with her primary care physician. Not available 06/27/2022 10:08:10 Plan of Treatment Reminders Order Date Submit Date Provider Last Modified By Organization Details Last Modified Time Details Appointments None recorded. Lab urinalysis panel, auto 2021 apenningt on9 [facility], [address] [facility] , [address] [address], [place], [address], 14:29:04 culture, urine 2021 [facility], [address] [place] [address], [phone], 14:45:47 ccp (cyclic citrullinat ed peptide) iga+igg, serum 2020 [facility], [address] [place] [address], [address], 02:26:29 rf (rheumatoid factor), serum 2020 [facility], [address] [place] [address], [address], 12:57:37 C reactive protein, QN, serum or plasma 2020 [facility], [address] [place] [address], [address], 12:57:40 ESR (erythrocyt e sedimentati on rate), blood 2020 [facility], [address] [place] [address], [address], 13:04:39 uric acid, serum or plasma 2020 [facility], [address] [place] [address], [address], 12:57:39 CARLOS A (antinuclea r antibodies) panel, serum 2020 [facility], [address] [place] [address], [address], 07:35:27 colon cancer screening, stool 2020 renataerjessie sanford [employer], [address], [address], [place], [address], 08:50:[address] referral 2021 [facility], [address] [facility], [place], [address], 14:10:05 rheumatolog ist referral 2021 prasanna sanford [facility], [address], [address], [place], [address], 10:58:01 rheumatolog ist referral 2020 [facility] Not available 14:09:35 Procedures None recorded. Surgeries None recorded. Imaging MAMMO, screening, tomosynthes is, bilateral, w/ CAD 2021 [facility], [address] [place] [address], [address], 09:29:29 US, breast, unilateral 2021 [email or web address] [facility], [address] [place] [address], [address], 11:57:43 MAMMO, diagnostic, tomosynthes is, bilateral, w/ CAD - discharge from nipple Patient reports clear discharge from left nipple last week 2021 [email or web address] [facility], [address] [place] [address], [address], 11:57:36 XR, knee, 3 view 2020 [email or web address] [facility], [address] [place], [address], 12:08:10 MAMMO, screening, tomosynthes is, bilateral, w/ CAD 2020 [email or web address] [facility], [address] [place], [address], 14:09:35 Medication Orders valacyclovi r 500 mg tablet 2020 FREEMAN [employer] #[id number], [address] , [place], [place], [id number], 13:40:56 levothyroxi ne 75 mcg tablet 2020 [facility] [employer] #[id number], [address], [place], [place], [id number], 13:39:13 Patient TargetsNo targets recorded. Patient Instructions Encounter Date Encounter Id Patient Instructions Last Modified By Organization Details Last Modified Time 06/27/2022 [id number] _30__ minutes wa s spent on this encounter; including preparing to see the patient, which involved review/interpretat ion of diagnostics and reports; obtaining and/or reviewing separately obtained history; performing appropriate physical exam; ordering/schedulin g medications, tests or procedures; communicating findings and counseling/educati ng the patient, family and/or caregiver; documentation in EMR; and care coordination. Not available 06/27/2022 10:11:20 Reason for Referral Process Improvement Manager Referral for Pain of knee region Referring Physician: Kenia Flores, SUPERVISOR SHOP, Encounter Date: 04/15/2021 Fire Tender Referral for S creening for malignant neoplasm of skin Referring Physician: Kenia Flores SUPERVISOR SHOP, Encounter Date: 04/17/2022 Process Improvement Manager Referral for Pain of multiple joints Referring Physician: Kenia Flores, SUPERVISOR SHOP, Encounter Date: 04/17/2022 Results Created Date Observation Date Name Description Value Unit Range Abnormal Flag Note LastModifiedBy Organization Detail LastModifiedTime 05/12/20 21 05/12/2021 COLOG UARD cologuard result reportable Positi ve negati ve abnormal POSIT JAKE TEST RESUL T. A posit jake Colog uard resul t shoul d be follo wed with a colon oscop y or visua l exami natio n of the colon . The ursula l value (refe rence range ) for this assay is negat jake. TEST DESCR IPTIO N: Daphne site algor ithmi c rg sis of stool DNA-b urvashi murdock with hemog lobin immun oassa y. Quant itati ve value s of indiv idual bioma rkers are not repor table and are not assoc iated with indiv idual bioma rker resul t refer ence range s. Colog uard is inten ded for color ectal cance r scree dave of adult s of eithe r sex, 45 years or older , who are at [facility] for color ectal cance r (CRC) . Colog uard has been appro jong for use by the U.S. FDA. The perfo rmanc e of Colog uard was estab lishe d in a cross secti onal study of [facility] adult s aged 50-84 . Colog uard perfo rmanc e in patie nts ages 45 to 49 years was estim ated by dary-chana england rg sis of near- age group s. Colon oscop ies perfo rmed for a posit jake resul t may find as the most clini callie signi fican t lesio n: color ectal cance r [4.0% ], advan lisbeth adeno ma (incl uding sessi le araceli tariq polyp s great er than or equal to 1cm diame ter) [20%] or non- advan lisbeth adeno ma [31%] ; or no color ectal neopl irene [45%] . These estim ates are deriv ed from a prosp ectiv e cross -sect ional scree dave study of 10,00 0 ind[facility]ual [facility] risk for color ectal cance r who were scree jani with both Colog uard and colon oscop y. (Randall Seymour al, N Engl J Med 2014; 370(1 4):12 86-12 97.) Colog uard may produ ce a false negat jake or false posit jake resul t (no color ectal cance r or preca ncero us polyp prese nt at colon oscop y follo w up). A negat jake Colog uard test resul t does not guara ntee the absen ce of CRC or advan lisbeth adeno ma (pre- cance r). The curre nt Colog uard scree dave inter dorian is every 3 years . (Amer ican Cance r Socie ty and U.S. Multi -Soci ety Task Force ). Colog uard perfo rmanc e data in a 0 patie nt pivot al study using colon oscop y as the refer ence metho d can be acces sed at the follo wing locat ion: www.e xactl abs.c om/re sults . Addit ional descr iptio n of the Colog uard test proce ss, warni ngs and preca ution s can be found at www.c ologu uriel.c om. Not Available [facility] [address], [place], [address], 05/22/2021 17:26:08 05/24/2005/24/2021 RF SCREE N, QUANT . rf screen, quant. <10.0 IU/mL 0.0-13 .9 normal Not Available [facility] [address] [place], [address], 05/24/2021 12:57:37 05/24/20 21 05/24/2021 URIC ACID uric acid 8.2 mg/dL 2.4-6. 8 high Not Available [facility] [address] [place], [address], 05/24/2021 12:57:39 11/12/20 21 05/24/2021 C REACT JAKE PROTE IN C reactive protein 0.18 mg/dL 0.00-0 .49 normal Not Available [facility] [address] [place] [address], [address], 05/24/2021 12:57:40 05/24/20 21 05/24/2021 ESR, AUTOM ATED ESR, automated 2 mm 0-29 normal Not Available [facility] [address] [place] [address], [address], 05/24/2021 13:04:39 05/24/20 21 05/29/2021 ANTI- CCP anti-ccp <16 units normal Refer ence Range Negat jake: <20 Weak Posit jake: 20-39 Moder ate Posit jake: 40-59 Stron g Posit jake: >59 TEST PERFO RMED AT: [facility] [address] [place] [address] SKIP Silva MD Not Available [facility] [address] [place] [address], [address], 05/29/2021 02:26:29 05/24/20 21 05/29/2021 CARLOS A W/ REFLE X CARLOS A screen NEGATI VE negati ve normal CARLOS A IFA is a first line scree n for detec ting the prese nce of up to appro ximat michael 150 autoa ntibo dies in vario us autoi mmune disea ses. A negat jake CARLOS A IFA resul t sugge sts an CARLOS A-a ssoci ated autoi mmune disea se is not prese nt at this time, but is not defin itive . If there is high clini daria suspi cion for Sjogr en's syndr ome, testi ng for anti- SS-A/ Ro antib minoo shoul d be consi dered . Anti- Kristy-1 antib minoo shoul d be consi dered for clini callie suspe cted infla mmato ry myopa xenia . AC-0: Negat jake Inter natio nal Conse nsus on CARLOS A Anderson rns (http s://d oi.or g/10. 1515/ [facility]2017- 0052) For addit ional infor demetrice wade refer to http: //clotilde martinQue stDia gnost ics.c om/fa q/FAQ 177 (This link is being provi ded for infor matdarlin nal/ educa dae l purpo ses only. ) TEST PERFO RMED AT: [facility] [address] [place] [address] SKIP Silva MD Not Available [facility], [place], [address], 05/29/2021 07:35:27 06/17/20 21 06/17/2021 SURGI DARIA surgical SEE BELOW Depar tment of Patho logy Surgi daria Patho logy Repor t NAME: ROXIE KATZ PATH. :ST-2 1-118 13 Copy to: Diagn osis: A) Desce nding polyp : Sessi le araceli tariq adeno ma. No high grade dyspl irene or carci noma ident ified . B) Sigmo id polyp : Lumin al jose nts; no colon ic mucos a ident ified . C) Recta l polyp : After proce ssing , insuf ficie nt tissu e remai ns for inter preta tion. SOURC E OF SPECI MEN: POLYP , DESCE NDING POLYP , SIGMO ID RECTA L POLYP CLINI DARIA INFOR MATDARLIN N: (+) COLOG UARD HX POLYP S Gross Descr iptio n: A) Recei jong in forma rachel label ed with the patie nt's name and desig nated as desc endin g polyp is a singl e fragm ent of pale parker tissu e measu ring 0.6 cm. Entir michael submi tted in one casse tte. B) Recei jong in forma rachel label ed with the patie nt's name and desig nated sigm oid polyp are scant fragm ents of fecal and dieta ry fiber mater ial which have aggre gate dimen sions of 0.3 x 0.1 by less than 0.1 cm. There are no disti nct tissu e fragm ents ident ified despi te a thoro ugh exami natio n of the speci men conta iner to inclu de the lid. The speci men is filte red and submi tted entir michael in a biops y bag in a singl e casse tte. C) Recei jong in forma rachel label ed with the patie nt's name and desig nated rect al polyp is a forma rachel fille d bottl e with an evacu ation devic e. There is no visib le tissu e or fiber mater ial despi te a thoro ugh exami natio n of the speci men conta iner to inclu de the lid. The speci men is filte red and entir michael submi tted in a biops y bag in a singl e casse tte. MT 06/17 05:04 PM Micro scopi c Descr iptio n: A micro scopi c exami natio n has been perfo rmed. JC Mccann MD Elena d Out Date: 06/18 18:01 Page 1 of 1 Not Available [facility] [address] [place], [address], 06/18/2021 18:02:32 04/17/20 22 04/17/2022 URINE CULTU RE results Sourc e: CCUR Colle cted: 04/17 14:14 Site: Recei jong : 04/17 19:42 URINE CULTU RE FINAL 04/19 14:51 04/19 COLON Y COUNT : 10,00 0 - 100,0 00 CFU/M L Three or more isola jamison; mixed skin jahaira . Not Available [facility] [address] [place], [address], 04/19/2022 14:51:16 04/17/20 22 04/17/2022 urina lysis panel , auto Unknown Analyte Clean Catch Not Available [facility] [place], [place], [address], 04/17/2022 14:12:22 04/17/2004/17/2022 urina lysis panel , auto Unknown Analyte Yellow Not Available [address] [place], [place], [address], 04/17/2022 14:12:22 04/17/20 22 04/17/2022 urina lysis panel , auto Unknown Analyte Clear Not Available [address] [place], [place], [address], 04/17/2022 14:12:22 04/17/2004/17/2022 urina lysis panel , auto Unknown Analyte 1.015 Not Available [address] [place], [place], [address], 04/17/2022 14:12:22 04/17/20 22 04/17/2022 urina lysis panel , auto Unknown Analyte 5.0 Not Available [address] [place], [place], [address], 04/17/2022 14:12:22 04/17/20 22 04/17/2022 urina lysis panel , auto Unknown Analyte Negati ve Not Available [address] [place], [place], [address], 04/17/2022 14:12:22 04/17/2004/17/2022 urina lysis panel , auto Unknown Analyte Negati ve Not Available [address] [place], [place], [address], 04/17/2022 14:12:22 04/17/20 22 04/17/2022 urina lysis panel , auto Unknown Analyte Negati ve Not Available [address], [place], [address], 04/17/2022 14:12:22 04/17/20 22 04/17/2022 urina lysis panel , auto Unknown Analyte Normal Not Available [address], [place], [address], 04/17/2022 14:12:22 04/17/20 22 04/17/2022 urina lysis panel , auto Unknown Analyte Negati ve Not Available [address] [place], [place], [address], 04/17/2022 14:12:22 04/17/20 22 04/17/2022 urina lysis panel , auto Unknown Analyte Normal Not Available [address] [place], [place], [address], 04/17/2022 14:12:22 04/17/20 22 04/17/2022 urina lysis panel , auto Unknown Analyte Negati ve Not Available [address], [place], [address], 04/17/2022 14:12:22 04/17/20 22 04/17/2022 urina lysis panel , auto Unknown Analyte Negati ve Not Available [address], [place], [address], 04/17/2022 14:12:22 05/10/20 21 05/10/2021 MAMMO , scree dave, tomos ynthe sis, bilat eral, w/ CAD [facility] [address] [place] [address] Patien t Name: ELVIA GARCIA Patien t : [birth year] Age: 51 years Patien t Orderi ng Provid er: KENIA MILLIGAN GTON EXAM DATE: 2020 EXAM: MG SCREEN ING MENDEZ MAMMOG VAIBHAV INDICA TION: Routin e screen ing. PROCED URE: Multis lice imagin g of both breast s was perfor med in standa rd projec tions using Hologi c Seleni a Dimens ions tomosy nthesi s equipm ent (3D mammog ora) . 2D images were create d from the 3D datase t using C-View softwa re. The study was read with the assist ance of Comput er Aided Detect ion (CAD) softwa re. COMPAR BJ: This was compar ed with previo us mammog jodi dated 2015, 2013, 2012 FINDIN GS: The breast s are hetero geneou sly dense. This may lower the sensit ivity of mammog ora. There is no suspic ious mass or cluste r of calcif icatio ns. No keely ectura l distor tion. IMPRES SUZAN: BI-RAD S catego ry 1, Negati ve. There is no eviden ce of malign tran. Screen ing mammog jodi are recomm ended in one year. Result s were mailed or given to the patien t. Interp reted By: Jared Lara MD Electr onical ly Signed By: Jared Lara MD on 2020 3:[email or web address] [place] [address], [address], 05/13/2021 09:10:10 05/24/20 21 05/24/2021 XR, knee, [address] [address] Patien t Name: ELVIA GARCIA Patien t : [birth year] Patien t Orderi ng Provid er: TANVI LEMONS Y EXAM DATE: 2020 EXAM: XR QUE KNEES 3 VIEWS HISTOR Y: Bilate ral knee pain. COMPAR BJ: None. FINDIN GS: The bones of the left and right knee are normal in alignm ent. There is no eviden ce of fractu re. There are minima l degene rative change s. IMPRES SUZAN: 1. There are minima l degene rative change s in the left and right knee. Interp reted By: Parker dave MD Electr onical ly Signed By: Parker dave MD on 2020 11:34 AM [email or web address] [facility] [address], [address], 05/27/2021 13:23:02 06/10/20 22 06/10/2022 MAMMO , diagn ostic , tomos ynthe sis, bilat eral, w/ CAD [place] [address] [address] [place] Name: ELVIA Amaya : [birth year] Age: 52 years Patien t Orderi ng Provid er: KENIA MILLIGAN GTON EXAM DATE: 2021 EXAM: MG QUE DIAG MENDEZ MAMMOG VAIBHAV INDICA TION: Nipple discha rge, clear PROCED URE: Multis lice imagin g of both breast s was perfor med includ ing standa rd views using Hologi c Seleni a Dimens ions tomosy nthesi s equipm ent (3D mammog ora) . 2D images were create d from the 3D datase t using C-View softwa re. Images were evalua tariq with the assist ance of Comput er Aided Detect ion (CAD) softwa re. Left breast ultras ound was perfor med. Spot views of the left breast were obtain ed. COMPAR BJ: This is compar ed with prior mammog jodi dated 2020, 2015 FINDIN GS: The breast s are hetero geneou sly dense. This reduce s sensit ivity of mammog ora. No defini te mass or microc alcifi cation cluste r is detect ed to raise concer n. Spot views of the left retroa reolar region are unrema rkable . No distor tion. Ultras ound was perfor med of the left breast . A tiny hypoec hoic nodule measur ing 3 x 3 x 2 mm noted in the 9:00 retroa reolar region . This appear s to either be a benign cyst or mildly promin ent duct. IMPRES SUZAN: BI-RAD S catego ry 2, Benign . Recomm end manage clinic ally otherw ise follow -up screen ing mammog vaibhav in one year COMMEN T: Findin gs and recomm endati ons were discus sed with the juan c lima. Interp reted By: Jared Lara MD Electr onical ly Signed By: Jared Lara MD on 2021 10:09 AM [email or web address] [facility] [address] [place] [address], [address], 06/18/2022 13:31:40 06/10/20 22 06/10/2022 US, julius t, unila teral [facility] [place] [address] [place] Name: ELVIA Amaya : [birth year] Age: 52 years Patien t Orderi ng Provid er: KENIA MILLIGAN GTON EXAM DATE: 2021 EXAM: MG QUE DIAG MENDEZ MAMMOG VAIBHAV INDICA TION: Nipple discha rge, clear PROCED URE: Multis lice imagin g of both breast s was perfor med includ ing standa rd views using Hologi c Seleni a Dimens ions tomosy nthesi s equipm ent (3D mammog ora) . 2D images were create d from the 3D datase t using C-View softwa re. Images were evalua tariq with the assist ance of Comput er Aided Detect ion (CAD) softwa re. Left breast ultras ound was perfor med. Spot views of the left breast were obtain ed. COMPAR BJ: This is compar ed with prior mammog jodi dated 2020, 2015 FINDIN GS: The breast s are hetero geneou sly dense. This reduce s sensit ivity of mammog ora. No defini te mass or microc alcifi cation cluste r is detect ed to raise concer n. Spot views of the left retroa reolar region are unrema rkable . No distor tion. Ultras ound was perfor med of the left breast . A tiny hypoec hoic nodule measur ing 3 x 3 x 2 mm noted in the 9:00 retroa reolar region . This appear s to either be a benign cyst or mildly promin ent duct. IMPRES SUZAN: BI-RAD S catego ry 2, Benign . Recomm end manage clinic ally otherw ise follow -up screen ing mammog vaibhav in one year COMMEN T: Findin gs and recomm endati ons were discus sed with the patien t. Interp reted By: Jared Lara MD Electr onical ly Signed By: Jared Lara MD on 2021 10:11 AM [email or web address] [facility] [address], [address], 06/18/2022 13:31:41 Result Notes Documentation Provider Name and Address Organization Details Recorded Time Mammo, Screening, Tomosynthesis, Bilateral, W/ Cad : [address] [address] Patient Name: HOMER MCCRARY Patient : 1970 Age: 51 years Patient Ordering Provider: KENIA FLORES EXAM DATE: 05/10/2021 EXAM: MG SCREENING MENDEZ MAMMOGRAM INDICATION: Routine screening. PROCEDURE: Multislice imaging of both breasts was performed in standard projections using [employer] tomosynthesis equipment (3D mammography). 2D images were created from the 3D dataset using C-View software. The study was read with the assistance of Computer Aided Detection (CAD) software. COMPARISON: This was compared with previous mammograms dated 06/25/2016, 06/28/2014, 11/25/2012 FINDINGS: The breasts are heterogeneously dense. This may lower the sensitivity of mammography. There is no suspicious mass or cluster of calcifications. No architectural distortion. IMPRESSION: BI-RADS category 1, Negative. There is no evidence of malignancy. Screening mammograms are recommended in one year. Results were mailed or given to the patient. Interpreted By: Jared Lara MD Moni Faulkner [facility] 05/13/2021 09:10:10 Xr, Knee, 3 View : [place] [address] [place] [address] Patient Name: HOMER MCCRARY Patient : 1970 Patient Ordering Provider: MARIAELENA BRAY EXAM DATE: 05/24/2021 EXAM: XR QUE KNEES 3 VIEWS HISTORY: Bilateral knee pain. COMPARISON: None. FINDINGS: The bones of the left and right knee are normal in alignment. There is no evidence of fracture. There are minimal degenerative changes. IMPRESSION: 1. There are minimal degenerative changes in the left and right knee. Interpreted By: Thierry Kate MD Clyde Almeida [facility] 05/27/2021 13:23:02 Mammo, Diagnostic, Tomosynthesis, Bilateral, W/ Cad : [facility] [address] [place] [address] Patient Name: HOMER MCCRARY Patient : 1970 Age: 52 years Patient Ordering Provider: KENIA FLORES EXAM DATE: 06/10/2022 EXAM: MG QUE DIAG MENDEZ MAMMOGRAM INDICATION: Nipple discharge, clear PROCEDURE: Multislice imaging of both breasts was performed including standard views using [employer] tomosynthesis equipment (3D mammography). 2D images were created from the 3D dataset using C-View software. Images were evaluated with the assistance of Computer Aided Detection (CAD) software. Left breast ultrasound was performed. Spot views of the left breast were obtained. COMPARISON: This is compared with prior mammograms dated 05/10/2021, 06/25/2016 FINDINGS: The breasts are heterogeneously dense. This reduces sensitivity of mammography. No definite mass or microcalcification cluster is detected to raise concern. Spot views of the left retroareolar region are unremarkable. No distortion. Ultrasound was performed of the left breast. A tiny hypoechoic nodule measuring 3 x 3 x 2 mm noted in the 9:00 retroareolar region. This appears to either be a benign cyst or mildly prominent duct. IMPRESSION: BI-RADS category 2, Benign. Recommend manage clinically otherwise follow-up screening mammogram in one year COMMENT: Findings and recommendations were discussed with the patient. Interpreted By: Jared Lara MD [facility] 06/18/2022 13:31:40 Problems Name Problem SNOMED Code Status Onset Date Resolution Date Notes Provider Name and Address Organization Details Recorded Time Chronic gouty arthritis 31696755 Active 2015 From Automated Load;Provi xavier: Candelario Bates;Sta tus: Active Not Available [facility] 6 12:41:00 Lack of energy 238587368 Active 2015 From Automated Load;Provi xavier: Candelario Bates;Sta tus: Active Not Available [facility] 6 12:41:00 Menopause present 416739285 Active 2015 Provider: Theodore Bangura;Sta tus: Active Not Available [facility] 7 06:58:49 Hypothyro idism 52729098 Active 2015 Provider: Theodore Bangura;Sta tus: Active Not Available [facility] 7 07:35:14 Problem Notes Documentation Provider Name and Address Organization Details Recorded Time Breast Surgery Consult Note : [address] [address]HZBHLYDTHomer MAXWELL (id #[id number], : 1970) [address] [address] Encounter Summary - Progress Note Date Printed: 06/27/2022 Documents sent via fax will include the followingmessage: This fax may contain sensitive and confidential personal health information that is being sent for the sole use of the intended recipient. Unintended recipients are directed to securely destroy any materials received. You are hereby notified that the unauthorized disclosure or other unlawful use of this fax or any personal health information is prohibited. To the extent patient information contained in this fax is subject to 42 CFR Part 2, this regulation prohibits unauthorized disclosure of these records. If you received this fax in error, please visit [email or web address] to notify the sender and confirm that the information will be destroyed. If you do not have internet access, please call to notify the sender and confirm that the information will be destroyed. Thank you for your attention and cooperation. [ID:[id number]] Patient Homer Mccrary (52yo, F) #[id number] 1970 Patient Demographics: Address [address] [place] [address] [place]OGIO Claros [address] Work Phone Encounter Notes: Encounter Reason/DateTransition of Care Encounter breast problems, Breast Pain 06/27/2022 - 08:30AM - BREAST SURGERY SB History of Present IllnessCareese Mccrary is a 52-year-old female who presents with a few year history of left-sided clear nipple discharge that occurs once every few months. She notes that the discharge is clear and it occurs spontaneously without manipulation or compression. The patient denies any breast masses, skin change, nipple retraction or inversion, axillary adenopathy. She had a left sided breast biopsy that was benign breast tissue back in 2008 On 06/10/2022 the patient had a bilateral diagnostic mammogram and left ultrasound. The mammogram was BI-RADS 2 and unremarkable breast tissue. The ultrasound was performed of the left breast. A tiny hypoechoic nodule measuring 3 x 3 x 2 mm noted in the 9:00 retroareolar region. This appears to either be a benign cyst or mildly prominent duct. This was also BI-RADS 2. The patient has a family history of breast cancer diagnosed in a maternal aunt at age 40 and a maternal first cousin at age 31. She is unaware if they had any genetic testing. Her daughter had genetic testing and is noted to be positive for a factor V mutation. Her maternal grandfather had liver cancer also was noted to be an alcoholic. Her mother had basal cell carcinoma and an unknown age. Review of Systems Patient reportsabdominal painbut reports normal appetite and no nausea. She reports no fever, no night sweats, and no significant weight gain. She reports no vision change. She reports no difficulty hearing. She reports no frequent nosebleeds. She reports no sore throat. She reports no chest pain and no arm pain on exertion. She reports no cough, no wheezing, and no shortness of breath. She reports no incontinence and no difficulty urinating. She reports no muscle aches and no muscle weakness. She reports no abnormal mole. She reports no loss of consciousness and no weakness. She reports no depression, no sleep disturbances, and no anxiety. She reports no fatigue. She reports no swollen glands. She reports no runny nose. Additionally reports:Patient denies any new breast masses, skin changes, axillary adenopathy. She denies any unexplained weight loss, new bone pain. Patient notes left nipple discharge clear in color, worse with pressure and movement, intermittently for years per patient, wants benign reassurance. Abdominal pain per patient due to crohn's/ IBS, normal pain per pt. Vitals Ht: 5 ft 1 in06/27/2022 08:32 am Wt: 146 lbs Dfegjp9706/27/2022 08:32 am BMI: 27.6108/28/2021 08:32 am T: 98 F 06/27/2022 08:42 am BP: 110/7006/27/2022 08:42 am Pulse: 92 bpm06/27/2022 08:42 am RR: 16108/28/2021 08:42 am Results/InterpretationsNone recorded Physical ExamRight Lymphatics:Cervical normal. Supraclavicular normal. Axillary normal. Infraclavicular normal. Right Breast:Skin changes normal. Nipple normal, epithelium intact, and no discharge. Masses no palpable masses. Tenderness nontender to palpation. Scar no scars. Whole breast radiation changes n/a. Brachytherapy changes n/a. Central line not present. Reconstruction changes n/a. Upper extremity normal ROM and no lymphedema. Macromastia n/a. Left Lymphatics:Cervical normal. Supraclavicular normal. Axillary normal. Infraclavicular normal. Left Breast:Skin changes normal. Nipple normal, epithelium intact, and no discharge. Masses no palpable masses. Tenderness nontender. Scar no scars. Whole breast radiation changes n/a. Brachytherapy changes n/a. Central line not present. Reconstruction changes n/a. Upper extremity normal ROM and no lymphedema. Macromastia n/a. Bakery Technician:Bakery Technician: present. unable to reproduce nipple discharge Procedure DocumentationNone recorded Assessment and PlanAssessment: 52-year-old female with rare left breast clear nipple discharge, benign breast imaging. Plan: Rare clear nipple discharge is not uncommon and also not concerning. The patient takes multiple medications that are correlated with nipple discharge. The patient is instructed to avoid compressing or squeezing her nipple if or when this clear nipple discharge occurs. The patient complained of some right lateral breast pain/tenderness. This could be musculoskeletal but it could also be attributed to an ill fitting bra or even idiopathic. The patient is instructed to ensure her bras proper fitting and if this does not improve the pain and she can consider taking vitamin D supplementation. Although caffeine is the most common cause of breast pain, the patient notes that she does not take any caffeine orally. The patient notes that she is worried and anxious due to her family history of breast cancer in her maternal aunt and maternal first cousin. There is currently no imaging or clinical findings that are worrisome. The patient also notes that her sister was diagnosed with a rare type of artery malformation however, I do not feel this would be something to be concerned about in regards to her breasts. I urged her to discuss this further with her primary care physician. 1. Screening wwqsailtxtbW57.31: Encounter for screening mammogram for malignant neoplasm of breast MG SCREENING MENDEZ MAMMOGRAM Weight (lbs): 146 Date of imagin06/11/2023 Place of service: OFFICE Procedure code: 16289, 20779 Authorization: [place] [address], [address] 2. Discharge from left qrroxyC25.52: Nipple discharge Discussion Notes_30__ minutes was spent on this encounter; including preparing to see the patient, which involved review/interpretation of diagnostics and reports; obtaining and/or reviewing separately obtained history; performing appropriate physical exam; ordering/scheduling medications, tests or procedures; communicating findings and counseling/educating the patient, family and/or caregiver; documentation in EMR; and care coordination. Return to Office to see KENIA FLORES APRN for [facility]NUAL [facility]ARD [facility] on or around 04/17/2023 KENIA FLORES APRN for ANNUAL [facility]CHARD HAND EXT [facility] on 04/20/2023 at 02:00 PM to see LUKE DAVID MD at [facility] on or around 06/17/2024 to see LUKE DAVID MD at [facility] on or around 06/17/2024 Patient Medical History: Allergies List Reviewed Allergies BIAXIN: - Comment: Created By: Federico Antoine;Created Date: 08/17/2008 11:53:11 AM; WARREN ALBICANS SKIN TEST: - Comment: THRUSH;Created By: Federico Antoine;Created Date: 08/17/2008 11:53:32 AM; COLCHICINE DESYREL: - Comment: Created By: Federico Antoine;Created Date: 08/17/2008 11:52:58 AM; DEXAMETHASONE OMNICEF: - Comment: Created By: Lien Jordan;Created Date: 05/15/2011 1:39:55 PM; PENICILLINS: - Comment: Pt has had penicilin shots before- thinks can have penicilin;Created By: Lien Jordan;Created Date: 05/20/2011 11:07:49 AM; SULFA (SULFONAMIDE ANTIBIOTICS): - Comment: Created By: Federico Antoine;Created Date: 08/17/2008 11:52:37 AM; TRAZODONE Medications Reviewed Medications NameDate Source amitriptyline 100 mg tabletTake 1 tablet(s) every day by oral route.05/24/21 entered Keiry Castro Focalin XR 40 mg capsule,extended releaseDaily Internal Note:Frequency: daily;Medication Description: dexmethylphenidate; Dosage:1; Route:oral; refills: entered tanya.263 indomethacin 50 mg capsuleInternal Note:Alt Frequency: prn;Medication Description: indomethacin; Dosage:1; Route:oral; refills: entered tanya.242 levothyroxine 75 mcg tabletTAKE 1 TABLET BY MOUTH ONCE DAILY04/15/21 prescribed KENIA FLORES APRN metOLazone 2.5 mg tabletDaily Internal Note:Frequency: daily;Medication Description: metolazone; Dosage:1; Route:oral; refills: entered tanya.242 pilocarpine 5 mg tablettake one tablet by mouth twice daily/NEEDS APT PRIOR TO ANY MORE REFILLS-NOT SEEN FOR 1 YEAR02/19/17 renewed GHANSHYAM BATES MD Pristiq 50 mg tablet,extended releaseEvery night at bedtime Internal Note:Frequency: qhs;Medication Description: desvenlafaxine; Dosage:1; Route:oral; refills: entered usffi.245 spironolactone 50 mg tablettake 1 tablet by mouth twice a day08/17/18 renewed THEODORE BANGURA MD terazosin 2 mg capsuletwice daily Internal Note:Frequency: hs;Medication Description: terazosin; Dosage:1; Route:oral; refills: entered usroberti.247 valACYclovir 500 mg tabletTAKE 1 TABLET BY MOUTH DAILY04/17/22 juan pablo FLORES APRN Family HistoryReviewed Family History Maternal Aunt - Familial cancer of breast (onset age: 40) - Breast Cancer, still living Maternal Grandfather - Neoplasm of liver (onset age: 70) ( age: 70) - Liver Cancer, Alcoholic per patient Unspecified Relation - Arthritis - Gout - Familial cancer of breast (onset age: 31) - 1st Maternal Cousin, female, still living Mother - Neoplasm of skin (onset age: 52) - Basal Cell Carcinoma, still living Daughter has hx of genetic testing, factor 5 mutation positive for her daughter Past Medical HistoryReviewed Past Medical History Asthma:Y Breast Problem:Y Crohn's Disease:Y-also IBS Diabetes:Y-Type 2, managed with diet Hypertension:Y Other:Y-06/2021 polyps removed that were precancerous Thyroid Disease:Y Notes: ,pcos extreme dry mouth, genital herpes Vaccine HistoryReviewed Vaccines covid - Pfizer x 2 Electronically Signed by: KAUR NÚÑEZ MD KENIA FLORES APRN [address] [place], [address], [facility] 06/27/2022 11:13:22 Procedures Surgical History Date Name Laterality Status Provider Name and Address Organization Details Recorded Time 06/12/20 21 colonoscopy completed Jenni Hanson [facility] 06/19/2022 16:55:35 05/10/20 21 Date of Last Mammogram completed Moni Faulkner [facility] 04/17/2022 13:04:07 01/15/20 18 Date of Last Pap Smear completed [facility] 09/05/2019 14:53:16 07/13/19 18 cholecystectomy completed [facility] 06/19/2022 16:42:33 06/25/20 16 Most Recent Bone Density completed [facility] 01/14/2018 10:12:58 06/25/20 16 Date of Last Colonoscopy completed [facility] 01/14/2018 10:23:03 07/13/19 09 biopsy of breast completed [facility] 06/19/2022 16:43:21 07/13/19 03 Hysterectomy/revise vagina completed [facility] 06/19/2022 16:42:18 07/13/19 02 section completed [facility] 06/19/2022 16:41:52 Imaging Results None recorded. Procedure Notes None recorded. Medical Equipment None Reported. Allergies Allergen ID Allergen Name Allergen Category Reaction Reaction Severity Criticality Documentation Date Start Date Code Code System Note Provider Name and Address Organization Details Recorded Time 922107 warren albicans skin test medicatio n Not available Not available Not available 06/05/20162008 Comme nt: THRUS H;Cre ated By: Mehdi LealCrea tariq Date: 11:53 :32 AM; Not Available [facility] 6 13:21:52 [id number] Desyrel medicatio n Not available Not available Not available 06/05/2016200819 2 RxNorm Comme nt: Creat ed By: Mehdi LealCrea tariq Date: 11:52 :58 AM; Not Available [facility] 6 13:21:52 [id number] Biaxin medicatio n Not available Not available Not available 06/05/20162008 9 RxNorm Comme nt: Creat ed By: Mehdi LealCrea tariq Date: 11:53 :11 AM; Not Available [facility] 6 13:21:52 124412 Substance with sulfonami de structure and antibacte rial mechanism of action (substanc e) medicatio n Not available Not available Not available 06/05/20162008 70285 8003 SNOMED Comme nt: Creat ed By: Mehdi Antoine ;Crea tariq Date: 009 11:52 :37 AM; Not Available [facility] 6 14:09:56 [id number] Omnicef medicatio n Not available Not available Not available 06/05/20162010 88558 RxNorm Comme nt: Creat ed By: Regina Munoz i;Cre ated Date: 2010 1:39: 55 PM; Not Available [facility] 6 14:09:56 [id number] Product containin g penicilli n (product) medicatio n Not available Not available Not available 06/05/20162010 43658 8001 SNOMED Comme nt: Pt has had penic ilin shots befor e- think s can have penic ilin; Creat ed By: Regina Munoz i;Cre ated Date: 2010 11:07 :49 AM; Not Available [facility] 6 14:09:56 075297 trazodone medicatio n Not available Not available Not available 05/24/2021 03529 RxNorm Keiry Castro [facility] 10:22:47 482258 dexametha sone medicatio n Not available Not available Not available 05/24/2021 3264 RxNorm Keiry Castro [facility] 10:23:05 820038 colchicin e medicatio n Not available Not available Not available 06/19/2022 2683 RxNorm Jenni Hanson [facility] 2 16:35:43 Medications Name Sig Start Date Stop Date Status Note LastModified by Organization Details LastModified Time metolazon e 2.5 mg tablet Daily active Frequenc y: daily;Me dication Descript ion: metolazo ne; Dosage:1 ; Route:or al; refills: 0 Not Available Not Available Not Available pilocarpi ne 5 mg tablet pt needs apt prior to any refills active Not Available Not Available No t Available Vivelle-D ot 0.1 mg/24 hr transderm al patch APPLY 1 PATCH TOPICALL Y TO THE ABDOMEN OR BUTTOCKS TWICE A WEEK 01/14 completed Not Available Not Available Not Available Diflucan 150 mg tablet Every week 05/24 completed Duration : 2 days;Ins truction s: one weekly for suppress ion;Freq uency: Every week;Med ication Descript ion: fluconaz ole; Dosage:1 ; Route:or al; refills: 12; Quantity :4 tablet Not Available Not Available Not Available allopurin ol 100 mg tablet Daily 09/05 completed Duration : 30 days;Ins truction s: 1, daily, 1 qd;Frequ ency: daily;Me dication Descript ion: allopuri nol; Dosage:1 ; Route:or al; refills: 2; Quantity :30 tablet Not Available Not Available Not Available valacyclo vir 500 mg tablet TAKE 1 TABLET BY MOUTH DAILY active Not Available Not Available No t Available aspirin 81 mg tablet,de layed release Take 1 tablet every day by oral route. 06/19 completed Not Available Not Available Not Available levothyro xine 75 mcg tablet TAKE 1 TABLET BY MOUTH ONCE DAILY 2020 active Not Available Not Available Not Avai lable terazosin 2 mg capsule twice daily active Frequenc y: hs;Medic ation Descript ion: terazosi n; Dosage:1 ; Route:or al; refills: 0 Not Available Not Available Not Available indometha ирина 50 mg capsule active Alt Frequenc y: prn;Medi cation Descript ion: indometh acin; Dosage:1 ; Route:or al; refills: 0 Not Available Not Available Not Available Vivelle-D ot 0.0375 mg/24 hr transderm al patch Apply 1 patch(es ) twice a week by transder mal route. 09/05 completed r/o thrombop hilia first Not Available Not Available Not Available allopurin ol 300 mg tablet Daily 09/05 completed Duration : 30 days;Gerald quency: daily;Me dication Descript ion: allopuri nol; Dosage:1 ; Route:or al; refills: 3; Quantity :30 tablet Not Available Not Available Not Available Elavil 50 mg tablet Bedtime 05/24 completed Duration : 30 days;Gerald quency: hs;Medic ation Descript ion: amitript yline; Dosage:2 ; Route:or al; refills: 12; Quantity :30 tablet Not Available Not Available Not Available amitripty line 100 mg tablet Take 1 tablet every day by oral route. active Not Available Not Available No t Available spironola ctone 50 mg tablet active Not Available Not Available No t Available atorvasta tin 05/24 completed Not Available Not Available Not Available Pristiq 50 mg tablet,ex tended release Every night at bedtime active Frequenc y: qhs;Medi cation Descript ion: desvenla faxine; Dosage:1 ; Route:or al; refills: 0 Not Available Not Available Not Available Align (B. is) 05/24 completed Not Available Not Available Not Available Colcrys 0.6 mg tablet Two times a day 09/05 completed Duration : 30 days;Gerald quency: bid;Medi cation Descript ion: colchici ne; Dosage:1 ; Route:or al; refills: 3; Quantity :60 tablet Not Available Not Available Not Available Focalin XR 40 mg capsule,e xtended release Daily active Frequenc y: daily;Me dication Descript ion: dexmethy lphenida te; Dosage:1 ; Route:or al; refills: 0 Not Available Not Available Not Available Sutab 1.479-0.1 88-0.225 gram tablet as directed 06/19 completed Not Available Not Available Not Available Vitals Date Recorded Body height Body mass index (BMI) Body weight Systolic And Diastolic Provider Name and Address Organization Details Last Updated DateTime 04/15/2021 154.94 cm 28.3 kg/m2 02343.86 g 110/68 mm[Hg] Moni Faulkner [facility] 04/15/2021 13:08:24 Date Recorded Body height Body mass index (BMI) Body weight Systolic And Diastolic Provider Name and Address Organization Details Last Updated DateTime 04/17/2022 154.94 cm 27.6 kg/m2 97078.49 g 130/76 mm[Hg] Moni Faulkner [facility] 04/17/2022 13:03:31 Date Recorded Body height Body mass index (BMI) Body weight Heart rate Oxygen saturation Oxygen saturation in Arterial blood by Pulse oximetry Systolic And Diastolic Provider Name and Address Organization Details Last Updated DateTime 1 154.94 cm 28.5 kg/m2 17011.4 5 g 97 /min 98 % 98 % 124/78 mm[Hg] Keiry Castro [facility] 1 10:15:40 Date Recorded Body height Body mass index (BMI) Body weight Heart rate Respiratory rate Body temperature Systolic And Diastolic Provider Name and Address Organization Details Last Updated DateTime 2 154.94 cm 27.6 kg/m2 27223.4 9 g 92 /min 16 /min 98 [degF] 110/70 mm[Hg] Jenni Margie [facility] 2 08:42:29 Social History Question Answer Notes LastModified by [employer] Details LastModified Time Tobacco Smoking Status [facility] 10:24:21 What Is Your Level Of Caffeine Consumption? None Information not available 01/14/2018 What Was The Date Of Your Most Recent Tobacco Screening? 06/27/2022 Information not available 06/19/2022 Has Tobacco Cessation Counseling Been Provided? No Information not available 06/19/2022 Have You Recently Traveled Abroad? No Information not available 06/19/2022 Sex: Female Functional Status Question Answer Note LastModified by [employer] Details LastModified Time Do you use any illicit or recreational drugs? No Information not available 06/19/2022 What is your level of alcohol consumption? None Information not available 01/14/2018 Do you or have you ever used smokeless tobacco? Never used smokeless tobacco Information not available 09/05/2019 Do you or have you ever used e-cigarettes or vape? Never used electronic cigarettes Information not available 09/05/2019 Mental Status None recorded. Family History Relationship Description Onset Age of this Age Resolved Age Notes LastModified by Organization Details LastModified Time Maternal Aunt Familial cancer of breast 40 Breast Cancer , still living Not available 06/19/2022 16:38:07 Maternal Grandfather Neoplasm of liver 70 70 Liver Cancer , Alcoho lic per patien t Not available 06/19/2022 16:38:42 Unspecified Relation Arthritis Not available 05/24 10:26:40 Unspecified Relation Gout [email or web address] Not available 021 10:26:49 Unspecified Relation Familial cancer of breast 31 1st Matern al Cousin , female , still living Not available 06/19/2022 16:41:09 Mother Neoplasm of skin 52 Basal Cell Carcin ryder, still living Not available 06/19/2022 16:39:59 Notes:Daughter has hx of gen etic testing, factor 5 mutation positive for her daughter Medical History Condition Response Ovarian Cancer N Diabetes Y Coronary Artery Disease N Other Y Thyroid Disease Y Breast Cancer N Blood Transfusion N Congestive Heart Failure (CHF) N Eczema N Stroke N Diverticulitis N Thyroid Problems Y Asthma Y COPD N Depression Y Crohn's Disease Y Breast Problem Y Liver Disease N Heart Disease N Heart Attack ([place]) N Headaches Y Hypertension Y Kidney Disease N Gynecological History Statement/Question Response # of Pregnancies 2 Age at first live 29 Abnormal Pap N Date of Last Mammogram 05/10/2021 Regular Cycles N Date of LMP 07/13/2002 # of Births 2 Post Menopausal Bleeding N Real Heavy Periods Y Total months of 1 Current Control Method Hysterectom y Age at Menarche 11 Number of years of OCP use 8 History of Breast Biopsy? (when/where) S ee surgical history Infertility medication use? N Painful Periods Y Date of Last Colonoscopy 06/25/2016 Most Recent Bone Density 06/25/2016 # of Miscarriages 0 Menses Monthly N Date of Last Pap Smear 01/14/2018 Hormone Replacement Therapy Y Obstetrics History GPAL:G 2 P 2 0 0 2 Type Value Multiple Births 0 Full Term 2 Induced 0 Spontaneous 0 Premature 0 Living 2 Ectopics 0 Total 2 Past Encounters Encounter ID Performer Location Encounter Start Date Encounter Closed Date Diagnosis/Indication Diagnosis SNOMED-CT Code Diagnosis ICD10 Code Diagnosis IMO Codes Diagnosis Note [id number] KUSH LOWERY MD [facility] [address] [place] [address] 06/25/2016 09:13:53 06/25/2016 13:47:13 Menopausal syndrome 246676671 N95.8 [id number] NEDRA MOSHER [facility] [address] [place] [address] 01/14/2018 10:02:17 01/14/2018 11:14:38 Routine gynecologic examination done 9238170147 91 Z01.419 Headache 66557894 R51 Hormone re placement therapy 838190385 Z79.890 (Decrease for 0.1) Screening for malignant neoplasm of breast 073439258 Z12.31 Infection screening 2437 43056 Z11.3 [id number] NEDRA MOSHER [facility] [address] [place] [address] 09/05/2019 14:31:11 09/06/2019 08:06:12 Routine gynecologic examination done 6839769351 91 Z01.419 Screening for malignant neoplasm of breast 384547167 Z12.31 Screening for osteoporosis 629923976 Z13.820 Family his tory of blood coagulation disorder 5541858935 50542 Z83.2 Screening for malignant neoplasm of colon 593091881 Z12.11 Dysuria 93910341 R30.9 [id number] NEDRA HAYNES [facility] [address] [place] [address] 04/15/2021 12:55:27 04/15/2021 14:09:34 Routine gynecologic examination done [id number] [facility] Z01.419 PAP not indicated todayPatie nt to follow up in one year for annual exam Screening for malignant neoplasm of breast 870686602 Z12.39 routine screening Screening for malignant neoplasm of colon 800484403 Z12.11 routine screening Pain of knee region 1003 527760 M25.569 Rheumatolo gy referral per patient request Hypothyroidism [id number] E03.9 Patient requesting refills of levothyrox ine. Advised patient that would only send in one month of levothyrox ine and that she would need to follow up with PCP Herpes simplex [id number] B00.9 Refills per patient request [id number] MARIAELENA MOBERLY, MARKETING [place] [address] [place] [id number] 1 05/24/2021 09:58:42 05/24/2021 12:08:10 Pain of multiple joints [id number] M25.50 with long history of goutwith major flare on 01/09/2020c hronic bilateral foot deformitie s without synovitis, no dactylitis , no joint effusionsw ithout skin changes with no rasheswill obtain an arthritis panelwill obtain further xrays of the que knees today Pain of bi lateral knee regions [id number] M25.561 M25.562 with xrays of bilateral knees [id number] LUKE DAVID MD SURGERY SCHEDULE [address] [place] [address] 06/17/2021 12:16:00 06/17/2021 12:17:12 [id number] KENIA FLORES APRN [facility] [address] [place] [address] 04/17/2022 12:50:01 04/17/2022 14:10:04 Gynecologic examination [id number] Z01.419 PAP not indicated todayPatie nt to follow up in one year for WWE Discharge from nipple 54 [id number] N64.52 Patient reports clear discharge from left nipple last weekNo discharge observed on examWill evaluate with ultrasound and diag mammogram Screening for malignant neoplasm of skin [id number] Z12.83 routine screening Pain of mu ltiple joints [id number] M25.50 patient requesting referral to [facility] Increased frequency of urination [id number] R35.0 Discussed negative urine dip in officeWill culture urine and contact patient with results [id number] KAUR NÚÑ[place] [address] [place] [id number] 1 06/27/2022 08:26:46 06/27/2022 13:20:04 Screening mammography [id number] Z12.31 Discharge from left nipple [id number] N64.52 Health Concerns Section Related Observation LastModified by Organization Detai ls LastModified Time None Recorded Concern Status LastModified by Organization Details LastModified Time None Recorded Advance Directives Directive None Recorded Payers Insurance Date Sequence Insurance Name Policy Number Policy Dum[place] Covered Member ID Dum[place] Member ID Guarantor Name 05/07/2024 1 [place] [id number] Russell Mccrary [id number] Homer Mccrary Notes Date Note Type Note Provider Name and Address Organization Details Recorded Time 04/15/2021 text/html 51 year old female presents today for annual examLast PAP: 01/14/18 - negative with negative HPV co testing History of complete hysterectomy: endometriosis and pain Last mammogram: 06/25/16: benign - heterogeneously dense breast tissue Last colonoscopy: none on chart Patient is requesting refills of valacyclovir. Patient is requesting referral to agency trainer. Reports left knee pain. KENIA FLORES APRN [address] [place], [address], [facility] 04/15/2021 14:20:00 05/24/2021 text/html ROS as noted in the HPI pleasant 51 yo fe, new patient here for initial evaluation and consultation at the request of Kenia Flores APRN for bilateral knee pain; she reports the following symptomatic complaints:cannot tolerate most medications for thisbrain fog recurringknee xrays about a year agoseen with Dr. Thomas podiatry and had further labsseen with Dr. Reagan and Dr. 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 and has not lost the weight from thisshe had a major reaction to dexamethasoneno history of psoriasis herselfno known family history of RA or lupush/o left knee joint effusions post covidlong history of gout without trauma or recurring injury; without chronic or recurring infections; no s/e from medications; currently denies bowel or bladder changes, chest pain, shortness of air, rashes, fevers and all others are negative MARIAELENA BRAY APRN [address] [place], [address], [facility] 06/03/2021 07:58:43 04/17/2022 text/html 52 year old female presents today for annual examLast PAP: 01/14/18 - negative with negative HPV co testingHistory of complete hysterectomy: endometriosis and painLast mammogram: 05/10/21: benign - heterogeneously dense breast tissuePatient reports episode of clear discharge from left nipple last weekOnly occurred for one dayDenies any breast tendernessFamily history of breast cancer: maternal aunt and cousinLast colonoscopy: 06/17/21: polyps: repeat 3 yearsPositive cologuard on 05/12/21 KNEIAKathy WALTERFLORES, MARKETING OPERATIONS MANAGER [address] [place], [address], [facility] 04/17/2022 14:53:07 06/27/2022 text/html Homer Mccrary is a 52-year-old female who presents with a few year history of left-sided clear nipple discharge that occurs once every few months. She notes that the discharge is clear and it occurs spontaneously without manipulation or compression. The patient denies any breast masses, skin change, nipple retraction or inversion, axillary adenopathy. She had a left sided breast biopsy that was benign breast tissue back in 2008 On 06/10/2022 the patient had a bilateral diagnostic mammogram and left ultrasound. The mammogram was BI-RADS 2 and unremarkable breast tissue. The ultrasound was performed of the left breast. A tiny hypoechoic nodule measuring 3 x 3 x 2 mm noted in the 9:00 retroareolar region. This appears to either be a benign cyst or mildly prominent duct. This was also BI-RADS 2. The patient has a family history of breast cancer diagnosed in a maternal aunt at age 40 and a maternal first cousin at age 31. She is unaware if they had any genetic testing. Her daughter had genetic testing and is noted to be positive for a factor V mutation. Her maternal grandfather had liver cancer also was noted to be an alcoholic. Her mother had basal cell carcinoma and an unknown age. KAUR NÚÑEZ MD [address] [place], [address], [facility] 06/27/2022 10:12:35 OBGyn Episode Ob Episode Information Episode Created Date Number of Fetuses Patient Bloodtype Patient rh Status Prepregnancy Weight lbs Domestic Partner Domestic Partner Phone Father Name Cylinder Checker Status 06/19/20 22 1 CLOSED Fetus Data First Name Last Name Admitted to NICU Weight (g) Sex Living Outcome Pediatric Complications Fetus ID Race Codes Race Delivery Type Full Term [id number] Bobby Calculation Initial Bobby Date Initial Exam Date Initial Exam Provider Initial Ultrasound Date Last Menstrual Period Date Ultra Sound Weeks Gestation 0 Eighteen To Twenty Week Bobby Update Ultra Sound Date Fundal Height At Umbil Quickening Date Ultra Sound Latest Weeks Gestation Final Bobby Confirmed By Final Bobby Confirmed Date Final Bobby Date Ultra Sound Latest Days Gestation 0 0 Menstrual History Last Menstrual Date Menses Monthly On Bcp Conception Prior Menses Frequency Hcg Plus Date Menarche Onset Age Delivery Information Delivery Date Delivery Type Labor Anesthesia Weeks Gestation Incision Type Labor Labor Length Hrs Delivered By Post Complications Tubal Sterilization Discharge Date Comments 0 Discharge Information Feeding Method Contraceptive Method Maternal HG B and HCT Levels Ob Episode Information Episode Created Date Number of Fetuses Patient Bloodtype Patient rh Status Prepregnancy Weight lbs Domestic Partner Domestic Partner Phone Father Name Cylinder Checker Status 06/19/20 22 1 CLOSED Fetus Data First Name Last Name Admitted to NICU Weight (g) Sex Living Outcome Pediatric Complications Fetus ID Race Codes Race Delivery Type Full Term [id number] Bobby Calculation Initial Bobby Date Initial Exam Date Initial Exam Provider Initial Ultrasound Date Last Menstrual Period Date Ultra Sound Weeks Gestation 0 Eighteen To Twenty Week Bobby Update Ultra Sound Date Fundal Height At Umbil Quickening Date Ultra Sound Latest Weeks Gestation Final Bobby Confirmed By Final Bobby Confirmed Date Final Bobby Date Ultra Sound Latest Days Gestation 0 0 Menstrual History Last Menstrual Date Menses Monthly On Bcp Conception Prior Menses Frequency Hcg Plus Date Menarche Onset Age Delivery Information Delivery Date Delivery Type Labor Anesthesia Weeks Gestation Incision Type Labor Labor Length Hrs Delivered By Post Complications Tubal Sterilization Discharge Date Comments 2 Discharge Information Feeding Method Contraceptive Method Maternal HG B and HCT Levels
== END 2025-05-31 23:59 | disposition home or self-care (01) ==
LOC: RAD 14:40
PROVIDERS: PCP Internal Medicine Adolescent Medicine; Visit Provider Internal Medicine Adolescent Medicine
DX: M99.73 Connective tissue and disc stenosis of intervertebral foramina of lumbar region (principal); M54.32 Sciatica, left side; R93.7 Abnormal findings on diagnostic imaging of other parts of musculoskeletal system; R32 Unspecified urinary incontinence
CPT/HCPCS: 72148